=== PATIENT | male | born 1945 | race Caucasian/White ===

== ENCOUNTER 2019-11-12 08:45 | Outpatient (CLI) | payer OTHER, SELFPAY ==
--- NOTE | 2019-11-13 10:53 | ONC FU_ITS ---
Dr. Castano Patient Follow-Up Note Patient: Armando Zurita Unit #: [id number]: 1945 Dicatated By: Jus Castano M.D.Date of Visit:Nov 12, 2019 Onc Med Follow-up/Prog Note Chief Complaint: Chronic lymphocytic leukemia/transformed lymphoma and lung cancer. 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 He also has been treated for nonsmall cell cancer of the right lung. He had known chronic lymphocytic leukemia, initially diagnosed in 2001. He had mostly been followed through the [place]. He had early stage disease, and he had been monitored on observation. I had seen him initially on 01/09/2016 because of increasing lymphocytosis and peripheral lymphadenopathy. The most significant area of adenopathy was in the right side of the neck. A contrast-enhanced neck CT on 01/01/2016 showed extensive multilevel cervical lymphadenopathy and to a lesser extent mediastinal and hilar lymphadenopathy. The largest interventional lymph node appeared to be a right anterior cervical node at level 3 measuring about 5.7 cm in diameter. It was associated with displacement of the right parotid gland and near complete effacement of the right internal jugular vein. A left-sided level 3 cervical node measured 3.1 cm and a left-sided level 4 supraclavicular lymph node measured 3.6 cm. His subsequent evaluation included staging CT scans of the chest/abdomen/pelvis on 01/30/2016. These showed significant, generalized lymphadenopathy and mild splenomegaly. Also noted were subcentimeter pulmonary nodules of undetermined significance. He underwent incisional biopsy of the right neck mass on 01/31/2016. Pathology was consistent with diffuse large B-cell lymphoma, germinal center subtype with high-grade features. Bone marrow aspiration/biopsy on 02/09/2016 did show evidence of chronic lymphocytic leukemia, but no evidence of involvement with the diffuse large B-cell lymphoma. He initiated a course of treatment with R-CHOP chemotherapy on 02/14/2016. His baseline echocardiogram showed adequate LV function with estimated ejection fraction at 55%. His day 1 treatment was complicated by a hypersensitivity reaction to the rituximab, significant enough that he did require treatment with epinephrine. As such, the rituximab infusion was not completed, but he was able to return the following day and complete the CHOP portion of the treatment. The rituximab was re-introduced with the second cycle, and with premedication he tolerated it well. He completed his 6th cycle of treatment on 06/05/2016. Restaging CT scan of the chest, abdomen, and pelvis on 07/01/2016 showed moderate improvement in lymphadenopathy throughout the chest, abdomen and pelvis since the prior study. There were no new lymph nodes or progression of adenopathy noted. Chest CT performed on 09/03/2016 showed enlarging superior segment right lower lobe lung nodule suspicious for primary lung neoplasm. On 10/28/2016 he underwent right lower lobectomy. Pathology showed grade 2/4 infiltrating adenocarcinoma measuring 1.5 x 1.4 cm. The bronchial margin of resection was free by 4 cm. The pleural surface was free by 0.2 cm. There was no involvement in 4 hilar lymph nodes. His pathologic stage thus was IA (T1a, N0, M0). Surveillance CT scans of the chest, abdomen, and pelvis on 05/22/2017 showed a spiculated pleural-based nodule in the right upper lobe measuring 8 mm and an additional nodule measuring 6 mm in the medial right upper lobe. Both of these appear to be new from previous studies. Also noted were new tree-in-bud airspace abnormalities in the right upper lobe and right middle lobe and there was a possible 3 mm nodule in the left lower lobe. Findings were felt to be consistent either with infectious process or early metastatic disease. Also noted was a slight increase in the size of mediastinal and hilar lymph nodes compared to August 2016, with the largest node at the left hilum measuring 12 mm. He continued observation/expectant management. A repeat chest CT on 08/22/2017 showed moderate improvement in the aeration throughout both lungs compared to the study from May. A 7 mm right upper lobe subpleural nodule appeared stable. There was near complete resolution of the parenchymal nodule in the right upper lobe. There was a small persistent right pleural effusion. He continued on observation/expectant management. His surveillance CT scans of the chest, abdomen, and pelvis on 01/30/2018 showed increase in the right apical spiculated pulmonary nodule, measuring 14 x 8 mm compared to 7 mm on the prior study. There was interval development of necrotic right hilar lymphadenopathy measuring 2.4 x 1.7 cm. A 9 mm left infrahilar lymph node and a prevascular 12 mm lymph node appeared unchanged. There were new bilateral lower lung zone tree-in-bud nodular opacities, favoring infection or postinflammatory change. Retroperitoneal and inguinal lymph nodes measuring 1-2 cm appeared unchanged, as did additional inguinal, peritoneal, and mesenteric subcentimeter lymph nodes. He had further evaluation with PET/CT on 02/07/2018. It showed a 1.3 cm right lung apical nodule with SUV 4.5, new from the prior CT and suspicious for recurrence. A hypermetabolic superior right hilar lymph node also was consistent with malignancy, SUV 10.6. There were no other areas of significant FDG uptake. He was referred to Dr. Cristian Wong in [place]. He underwent bronchoscopy with EBUS on 03/13/2018. 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 FNA of a station 7 lymph node showed no malignancy. FNA of a station 4R lymph node was insufficient to exclude metastatic disease. He was referred to Dr. Glass and it was recommended that he undergo SBRT to the right upper lobe lesion followed by chemoradiation to the hilar lesion. He completed the SBRT on 04/07/2018 to a total dose of 4800 cGy. He began radiation to the hilar lesion, concurrently with weekly carboplatin/Taxol chemotherapy on 04/09/2018. He had no significant toxicity with his initial chemotherapy infusion, and he received his 2nd infusion of carbo/Taxol on 04/16/2018. His week 3 treatment was delayed 4 days due to a COPD exacerbation, but those symptoms did improve on treatment with Levaquin and prednisone. He was then able to continue his further chemotherapy on schedule. He received his 6th and final infusion of carboplatin/Taxol on 05/18/2018. He completed radiation on 05/27/2018 to a total dose of [address] on 06/30/2018 showed residual spiculated nodule in the right upper lobe measuring 11 mm, slightly smaller from the previous study. Right hilar necrotic lymphadenopathy also was noted to have improved, measuring 12 mm. Previously described pulmonary infiltrates in the right upper lobe were noted to have resolved. There were no other significant changes. Repeat chest CT on 10/05/2018 showed stable spiculated nodule in the right upper lobe measuring 10 x 6 mm. The central left upper lobe nodule measuring 7.5 mm appeared slightly more consolidated. Numerous subcentimeter retroperitoneal lymph nodes also appeared stable. Intermediate hilar lymph nodes also appeared stable. His chest CT on 01/07/2019 showed stable appearance of the right apical spiculated nodule measuring 11 x 7 mm in the left upper lobe noncalcified nodule measuring 7-8 mm. Incompletely visualized retroperitoneal subcentimeter lymph nodes also appeared stable. Overall, there was no evidence of disease progression in the chest. He continued on observation/expectant management. His other medical illnesses include hypertension, COPD, GERD, degenerative arthritis, and peripheral neuropathy. His only prior surgery was a cholecystectomy. He has a 60 year history of smoking, previously in excess of 2 packs of cigarettes daily. He continues to smoke 1 pack per day. INTERIM HISTORY: Repeat CT scans on 07/19/2019 showed spiculated right upper lobe mass with increased pleural thickening, measuring approximately 2.9 x 1.5 CM. There was progression of a noncalcified nodule in the left upper lobe measuring 12 mm. A new noncalcified spiculated nodule was noted in the right hilum measuring 9 mm. The abdomen/pelvis showed stable prominent periaortic and retroperitoneal lymph nodes, the largest measuring approximately 9 mm. Prominent lymph nodes along the mesenteric root appeared unchanged. Enlarged bilateral inguinal lymph nodes were noted to have shown interval progression since 10/05/2018, with the largest right inguinal lymph node measuring 2.1 x 1.9 cm. A restaging PET/CT on 07/24/2019 showed FDG avid right apical pulmonary nodule measuring 1.4 x 2.1 cm, SUV 5.4, consistent with disease progression. A right hilar lymph node showed decreased FDG avidity, SUV 5.4 compared to 10.6 on the previous study. A new left upper lobe nodule measuring 1.2 cm had SUV 3.2, consistent with new metastatic disease. A 9 mm right lower lobe nodule was also noted to be FDG positive and suspicious for metastatic disease. A 2.0 cm right femoral lymph node had elevated SUV of 4.9, suspicious for recurrent lymphoma. Other scattered mesenteric and pelvic nodes appeared unchanged. After review of the CT scans with the radiologist, it appeared that the pulmonary nodules were not accessible for biopsy. He ultimately was referred to Dr. Almendarez for biopsy of the right inguinal lymph node. The procedure was done on 10/12/2019 and pathology did confirm recurrent diffuse large B-cell lymphoma, germinal center subtype. He is seen for a follow-up visit to discuss the biopsy results. Since the biopsy procedure, he has developed persistent swelling in the right leg, which I assume is lymphedema. His clinical status is otherwise remained stable. Medications: AmLODIPine Besylate 1 (10 mg) Tablet Oral daily, Lisinopril 0.5 Tablet (of 40 mg) Oral daily, Omeprazole 1 (20 mg) Capsule Delayed Release Oral daily, Rosuvastatin Calcium 1 Tablet (of 5 mg) Tablet Oral daily Allergies: Seafood (crab legs) Vital Signs: Performed on Nov 12, 2019 09:00 Height - 71.00 in Weight - 199.6 lbs (HIGH) BSA - 2.11 sq.m BMI - 27.84 Temperature - 98.0 F (LOW) Pulse - 63 /min Respiration - 18 /min BP - 113/60 mm(hg) O2 Sat - 93 % (LOW) Pain - 5 Fatigue - 5 Lab/Imaging: Test performed on Oct 29, 2019 08:50 LDH (Total) 204 U/L Sodium 136 mmol/L Potassium 3.8 mmol/L Chloride 95 mmol/L CO2 30 mmol/L Anion Gap 14.8 BUN 16 mg/dL Creatinine 1.1 mg/dL Cr Clearance (Est) 76.2900 mL/min Glucose 104 mg/dl Calcium 9.1 mg/dL Protein, Total 6.7 g/dL Albumin 4.9 g/dL Globulin 1.8 gm/dL Bilirubin, Total 0.5 mg/dL ALT (SGPT) 9 U/L AST (SGOT) 14 U/L Alkaline Phosphatase 104 U/L WBC 9.1 10 3/uL RBC 4.68 10 6/uL HGB 13.9 g/dL HCT 43.2 % MCV 92.3 fl MCH 29.7 pg MCHC 32.2 g/dl RDW 12.4 % Platelet Count 233 10 3/cmm MPV 8.8 fl Neutrophils 5.2 10 3/uL Lymphocytes 2.1 10 3/uL Monocytes 0.7 10 3/uL Eosinophils 1.1 10 3/uL Basophils 0.1 10 3/uL Neutrophil % 56.8 % Lymphocyte % 22.6 % Monocyte % 7.5 % Eosinophil % 12.3 % Basophils % 0.5 % Impression: 1. Patient with chronic leukocytic leukemia, initially diagnosed in 2001. He initially had early stage disease and he was followed on observation. In January 2016 he presented with extensive and in some areas bulky lymphadenopathy, and he was confirmed by lymph node biopsy to have transformed diffuse large B cell lymphoma. By clinical evaluation, his disease was stage IIIA. His international prognostic index score was 2, intermediate risk. 2. He was treated with 6 cycles of R-CHOP chemotherapy from 02/14/2016 thru 06/05/2016. He experienced treatment-related fatigue and myelosuppression, including grade 2 anemia and grade 4 neutropenia. He also had some worsening of peripheral neuropathy, mainly in the left hand, where it was grade 3. Restaging CT scans on 07/01/2016 showed significant improvement in the lymphadenopathy, though not complete resolution. Three noncalcified 5 mm pulmonary nodules in the right lung were noted to be stable. 3. His follow-up chest CT in August 2016 showed enlargement of a right lower lobe pulmonary nodule. He underwent right lower lobectomy on 10/28/2016. Pathology confirmed grade 2/4 infiltrating adenocarcinoma, stage IA (T1a, N0, M0). His other medical illnesses include: 2. COPD. 3. Hypertension. 4. GERD. 5. Peripheral neuropathy. This appears to be idiopathic. 6. Nicotine dependence (cigarettes). During followup his initial surveillance CT scans had shown no evidence of recurrence of the lung cancer or lymphoma. His surveillance CT scans in January 2018 showed slight increase in size of a right apical pulmonary nodule measuring 14 x 8 mm and interval development of right hilar necrotic lymphadenopathy measuring 2.4 x 1.7 cm. On further evaluation with PET/CT, both lesions were FDG positive, suspicious for a new non-small cell lung cancer. He underwent bronchoscopy with EBUS on 03/13/2018. The right apical lesion was not accessible. 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 FNA of a station 7 lymph node showed no malignancy. As such, he had a new confirmed non-small cell carcinoma involving the upper lobe of the right lung. Based on the presence of a second tumor nodule within the right upper lobe, his disease was stage IIB (T3, N0, M0). He was given SBRT to the right upper lobe lesion, completed on 04/07/2018 to a total dose of 4800 cGy. He then began radiation to the right hilar lesion, currently with weekly carboplatin/Taxol chemotherapy on 04/09/2018. He completed the first 2 weekly chemotherapy infusions with no significant toxicity. His week 3 treatment was delayed 4 days due to symptoms of COPD exacerbation, but those did improve after treatment with Levaquin and prednisone. He was then able to continue the remainder of his chemotherapy on schedule. He completed his sixth and final infusion of carboplatin/Taxol on 05/18/2018. He completed radiation on 05/27/2018, total dose 1600 cGy. Overall, he tolerated his treatment well. He appeared to have significant response by follow-up chest CT. During follow-up he had initially remained stable clinically with no obvious progression of the lung cancer. However, his repeat CT scans July 2019 showed some progression of lymphadenopathy as well as increased pleural thickening associated with the residual right upper lobe mass. His restaging PET/CT on 07/24/2019 showed progression of the right apical pulmonary nodule as well as suspected bilateral metastatic pulmonary nodules and an FDG avid right femoral lymph node which appeared suspicious for recurrent lymphoma. The pulmonary nodules did not appear to be accessible for biopsy. Right inguinal lymph node biopsy on 10/12/2019 confirmed recurrent diffuse large B-cell lymphoma, germinal center subtype. Plan: He will now be starting second line treatment for diffuse large B-cell lymphoma with the R-gem ox chemotherapy regimen. This will be administered at 2-week intervals. I reviewed anticipated side effects including the potential for nausea/vomiting, fatigue, alopecia, and low blood counts, among others. I also discussed the expected neuropathy with oxaliplatin. He will return next week to begin his first cycle of treatment, but in the meantime he is also being scheduled for restaging PET/CT, as it is likely that he also has progression of the non-small cell lung cancer. [id number] time with patient was approximately 30 minutes, more than 50% spent in counseling/discussion. Signed By: Jus Castano M.D. <<Signature on File>>
== END 2019-11-12 08:46 | disposition home or self-care (01) ==
LOC: ONCMED 08:45
PROVIDERS: Family Provider Emergency Medicine Emergency Medical Services; PCP Emergency Medicine Emergency Medical Services; Visit Provider Internal Medicine Medical Oncology
DX: C83.35 Diffuse large B-cell lymphoma, lymph nodes of inguinal region and lower limb (principal); C34.11 Malignant neoplasm of upper lobe, right bronchus or lung; I10 Essential (primary) hypertension; J44.9 Chronic obstructive pulmonary disease, unspecified; K21.9 Gastro-esophageal reflux disease without esophagitis; M19.90 Unspecified osteoarthritis, unspecified site; G60.9 Hereditary and idiopathic neuropathy, unspecified; F17.210 Nicotine dependence, cigarettes, uncomplicated; I89.0 Lymphedema, not elsewhere classified; Z92.21 Personal history of antineoplastic chemotherapy; Z92.25 Personal history of immunosuppression therapy; Z92.3 Personal history of irradiation
CPT/HCPCS: 99214

== ENCOUNTER 2019-12-02 05:44 | Outpatient (RCR) | payer OTHER, SELFPAY ==
[2019-11-16 09:12] LABS: Basophils # 0.1 10^3/uL (0.0-0.1); Basophils % 0.7 %; Hematocrit 37.4 % (42.0-52.0); Lymphocytes # 2.1 10^3/uL (0.8-4.8); Lymphocytes % 24.4 %; Mean Corpuscular HGB Conc 32.1 g/dL (30.0-36.0); Mean Corpuscular Volume 87.2 fL (80-94); Mean Platelet Volume 9.1 fL (7.4-10.4); Monocytes # 0.7 10^3/uL (0.2-0.9); Neutrophils # 4.8 10^3/uL (1.8-7.7); Neutrophils % 55.7 %; Nucleated Red Blood Cells % 0 %; Platelet Count 234 10^3/cmm (130-400); Red Blood Count 4.29 10^6/uL (4.1-5.3); Red Cell Distribution Width 12.4 % (12.1-15.1); White Blood Count 8.6 10^3/uL (4.0-10.0)
[2019-11-16 09:23] LABS: Alanine Aminotransferase 6 U/L (0-41); Albumin Level 4.1 g/dL (3.5-5.2); Alkaline Phosphatase 94 IU/L (40-130); Aspartate Amino Transferase 12 U/L (0-40); Blood Urea Nitrogen 20 mg/dL (8-23); Calcium 9.6 mg/Dl (8.8-10.2); Carbon Dioxide 28 mmol/L (22-29); Chloride 96 mmol/L (98-107); Globulin 2.2 g/dL (1.3-4.6); Glucose 116 mg/dL (74-106); Lactate Dehydrogenase 225 U/L (135-225); Sodium 134 mmol/L (136-145); Total Bilirubin 0.6 mg/dL (0.15-1.2); Total Protein 6.3 g/dL (6.6-8.7)
[2019-11-16] MEDS: acetaminophen 325 mg Tablet 650 MG PO (09:27)
[2019-11-17] MEDS: dextrose 5% 250 ML 75 ML IV (13:55)
[2019-11-17] MEDS: sodium chloride 0.9% 250 ML 50 ML IV ×3 (13:56→14:56)
[2019-11-17] MEDS: pegfilgrastim 6 mg/0.6 mL Kit (onpro) SUBCUT (14:56)
[2019-11-23 10:06] LABS: Basophils # 0.1 10^3/uL (0.0-0.1); Basophils % 0.9 %; Eosinophils # 0.5 10^3/uL (0.0-0.8); Eosinophils % 3.4 %; Hematocrit 35.8 % (42.0-52.0); Hemoglobin 11.5 g/dL (11.7-16.6); Lymphocytes # 1.4 10^3/uL (0.8-4.8); Lymphocytes % 9.2 %; Mean Corpuscular HGB Conc 32.1 g/dL (30.0-36.0); Mean Corpuscular Hemoglobin 29.3 pg (28.0-34.0); Mean Corpuscular Volume 91.1 fL (80-94); Mean Platelet Volume 9.5 fL (7.4-10.4); Monocytes # 0.7 10^3/uL (0.2-0.9); Monocytes % 4.4 %; Neutrophils # 12.4 10^3/uL (1.8-7.7); Neutrophils % 81.4 %; Nucleated Red Blood Cells % 0 %; Platelet Count 135 10^3/cmm (130-400); Red Blood Count 3.93 10^6/uL (4.1-5.3); Red Cell Distribution Width 12.5 % (12.1-15.1); White Blood Count 15.3 10^3/uL (4.0-10.0)
[2019-11-23 10:27] LABS: Slide Review Slide Review Perform
[2019-11-23 10:28] LABS: Absolute Eosinophils 0.1 10^3/cmm (0.0-0.7); Absolute Segmented Neutrophil 8.4 10/cmm (1.6-7.1); Band Neutrophils Absolute 3.8 10^3/cmm (0.0-1.2); Basophils Absolute 0.2 10^3/cmm (0.0-0.2); Eosinophils 1 %; Lymphocytes 11 %; Monocytes Absolute 1.1 10^3/cmm (0.1-0.6); Segmented Neutrophils 55 %; Total Cells Counted 100 (0-100)
[2019-11-23 10:29] LABS: Platelet Estimate Decreased (Normal)
[2019-11-30 12:53] LABS: Basophils # 0.1 10^3/uL (0.0-0.1); Basophils % 0.8 %; Eosinophils # 0.5 10^3/uL (0.0-0.8); Eosinophils % 3.9 %; Hematocrit 41.2 % (42.0-52.0); Hemoglobin 12.9 g/dL (11.7-16.6); Lymphocytes # 1.5 10^3/uL (0.8-4.8); Lymphocytes % 12.9 %; Mean Corpuscular HGB Conc 31.3 g/dL (30.0-36.0); Mean Corpuscular Hemoglobin 29.1 pg (28.0-34.0); Mean Platelet Volume 9.9 fL (7.4-10.4); Monocytes # 1.2 10^3/uL (0.2-0.9); Monocytes % 9.7 %; Neutrophils % 67.1 %; Nucleated Red Blood Cells % 0 %; Platelet Count 243 10^3/cmm (130-400); Red Blood Count 4.43 10^6/uL (4.1-5.3); Red Cell Distribution Width 13.5 % (12.1-15.1); White Blood Count 11.9 10^3/uL (4.0-10.0)
[2019-11-30 13:08] LABS: Alanine Aminotransferase 35 U/L (0-41); Albumin Level 3.7 g/dL (3.5-5.2); Alkaline Phosphatase 129 IU/L (40-130); Anion Gap 16.4 (5-19); Aspartate Amino Transferase 26 U/L (0-40); Blood Urea Nitrogen 13 mg/dL (8-23); Calcium 9.8 mg/Dl (8.8-10.2); Carbon Dioxide 28 mmol/L (22-29); Chloride 98 mmol/L (98-107); Globulin 3.1 g/dL (1.3-4.6); Glucose 116 mg/dL (74-106); Lactate Dehydrogenase 229 U/L (135-225); Potassium 4.4 mmol/L (3.5-5.1); Sodium 138 mmol/L (136-145); Total Bilirubin 0.2 mg/dL (0.15-1.2); Total Protein 6.8 g/dL (6.6-8.7)
[2019-11-30 13:38] LABS: Slide Review Slide Review Perform
[2019-12-01] MEDS: acetaminophen 325 mg Tablet 650 MG PO (09:05)
[2019-12-01] MEDS: sodium chloride 0.9% 500 ML 75 ML IV (09:42)
--- NOTE | 2019-12-01 20:01 | ONC FU_ITS ---
Dr. Castano Patient Follow-Up Note Patient: Armando Zurita Unit #: [id number]: 1945 Dicatated By: Jus Castano M.D.Date of Visit:Dec 01, 2019 Onc Med Follow-up/Prog Note Chief Complaint: Chronic lymphocytic leukemia/transformed lymphoma and lung cancer. 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 He also has been treated for nonsmall cell cancer of the right lung. He had known chronic lymphocytic leukemia, initially diagnosed in 2001. He had mostly been followed through the [facility]. He had early stage disease, and he had been monitored on observation. I had seen him initially on 01/09/2016 because of increasing lymphocytosis and peripheral lymphadenopathy. The most significant area of adenopathy was in the right side of the neck. A contrast-enhanced neck CT on 01/01/2016 showed extensive multilevel cervical lymphadenopathy and to a lesser extent mediastinal and hilar lymphadenopathy. The largest interventional lymph node appeared to be a right anterior cervical node at level 3 measuring about 5.7 cm in diameter. It was associated with displacement of the right parotid gland and near complete effacement of the right internal jugular vein. A left-sided level 3 cervical node measured 3.1 cm and a left-sided level 4 supraclavicular lymph node measured 3.6 cm. His subsequent evaluation included staging CT scans of the chest/abdomen/pelvis on 01/30/2016. These showed significant, generalized lymphadenopathy and mild splenomegaly. Also noted were subcentimeter pulmonary nodules of undetermined significance. He underwent incisional biopsy of the right neck mass on 01/31/2016. Pathology was consistent with diffuse large B-cell lymphoma, germinal center subtype with high-grade features. Bone marrow aspiration/biopsy on 02/09/2016 did show evidence of chronic lymphocytic leukemia, but no evidence of involvement with the diffuse large B-cell lymphoma. He initiated a course of treatment with R-CHOP chemotherapy on 02/14/2016. His baseline echocardiogram showed adequate LV function with estimated ejection fraction at 55%. His day 1 treatment was complicated by a hypersensitivity reaction to the rituximab, significant enough that he did require treatment with epinephrine. As such, the rituximab infusion was not completed, but he was able to return the following day and complete the CHOP portion of the treatment. The rituximab was re-introduced with the second cycle, and with premedication he tolerated it well. He completed his 6th cycle of treatment on 06/05/2016. Restaging CT scan of the chest, abdomen, and pelvis on 07/01/2016 showed moderate improvement in lymphadenopathy throughout the chest, abdomen and pelvis since the prior study. There were no new lymph nodes or progression of adenopathy noted. Chest CT performed on 09/03/2016 showed enlarging superior segment right lower lobe lung nodule suspicious for primary lung neoplasm. On 10/28/2016 he underwent right lower lobectomy. Pathology showed grade 2/4 infiltrating adenocarcinoma measuring 1.5 x 1.4 cm. The bronchial margin of resection was free by 4 cm. The pleural surface was free by 0.2 cm. There was no involvement in 4 hilar lymph nodes. His pathologic stage thus was IA (T1a, N0, M0). Surveillance CT scans of the chest, abdomen, and pelvis on 05/22/2017 showed a spiculated pleural-based nodule in the right upper lobe measuring 8 mm and an additional nodule measuring 6 mm in the medial right upper lobe. Both of these appear to be new from previous studies. Also noted were new tree-in-bud airspace abnormalities in the right upper lobe and right middle lobe and there was a possible 3 mm nodule in the left lower lobe. Findings were felt to be consistent either with infectious process or early metastatic disease. Also noted was a slight increase in the size of mediastinal and hilar lymph nodes compared to August 2016, with the largest node at the left hilum measuring 12 mm. He continued observation/expectant management. A repeat chest CT on 08/22/2017 showed moderate improvement in the aeration throughout both lungs compared to the study from May. A 7 mm right upper lobe subpleural nodule appeared stable. There was near complete resolution of the parenchymal nodule in the right upper lobe. There was a small persistent right pleural effusion. He continued on observation/expectant management. His surveillance CT scans of the chest, abdomen, and pelvis on 01/30/2018 showed increase in the right apical spiculated pulmonary nodule, measuring 14 x 8 mm compared to 7 mm on the prior study. There was interval development of necrotic right hilar lymphadenopathy measuring 2.4 x 1.7 cm. A 9 mm left infrahilar lymph node and a prevascular 12 mm lymph node appeared unchanged. There were new bilateral lower lung zone tree-in-bud nodular opacities, favoring infection or postinflammatory change. Retroperitoneal and inguinal lymph nodes measuring 1-2 cm appeared unchanged, as did additional inguinal, peritoneal, and mesenteric subcentimeter lymph nodes. He had further evaluation with PET/CT on 02/07/2018. It showed a 1.3 cm right lung apical nodule with SUV 4.5, new from the prior CT and suspicious for recurrence. A hypermetabolic superior right hilar lymph node also was consistent with malignancy, SUV 10.6. There were no other areas of significant FDG uptake. He was referred to Dr. Cristian Wong in [place]. He underwent bronchoscopy with EBUS on 03/13/2018. 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 FNA of a station 7 lymph node showed no malignancy. FNA of a station 4R lymph node was insufficient to exclude metastatic disease. He was referred to Dr. Glass and it was recommended that he undergo SBRT to the right upper lobe lesion followed by chemoradiation to the hilar lesion. He completed the SBRT on 04/07/2018 to a total dose of 4800 cGy. He began radiation to the hilar lesion, concurrently with weekly carboplatin/Taxol chemotherapy on 04/09/2018. He had no significant toxicity with his initial chemotherapy infusion, and he received his 2nd infusion of carbo/Taxol on 04/16/2018. His week 3 treatment was delayed 4 days due to a COPD exacerbation, but those symptoms did improve on treatment with Levaquin and prednisone. He was then able to continue his further chemotherapy on schedule. He received his 6th and final infusion of carboplatin/Taxol on 05/18/2018. He completed radiation on 05/27/2018 to a total dose of [address] on 06/30/2018 showed residual spiculated nodule in the right upper lobe measuring 11 mm, slightly smaller from the previous study. Right hilar necrotic lymphadenopathy also was noted to have improved, measuring 12 mm. Previously described pulmonary infiltrates in the right upper lobe were noted to have resolved. There were no other significant changes. Repeat chest CT on 10/05/2018 showed stable spiculated nodule in the right upper lobe measuring 10 x 6 mm. The central left upper lobe nodule measuring 7.5 mm appeared slightly more consolidated. Numerous subcentimeter retroperitoneal lymph nodes also appeared stable. Intermediate hilar lymph nodes also appeared stable. His chest CT on 01/07/2019 showed stable appearance of the right apical spiculated nodule measuring 11 x 7 mm in the left upper lobe noncalcified nodule measuring 7-8 mm. Incompletely visualized retroperitoneal subcentimeter lymph nodes also appeared stable. Overall, there was no evidence of disease progression in the chest. He continued on observation/expectant management. His other medical illnesses include hypertension, COPD, GERD, degenerative arthritis, and peripheral neuropathy. His only prior surgery was a cholecystectomy. He has a 60 year history of smoking, previously in excess of 2 packs of cigarettes daily. He continues to smoke 1 pack per day. INTERIM HISTORY: Repeat CT scans on 07/19/2019 showed spiculated right upper lobe mass with increased pleural thickening, measuring approximately 2.9 x 1.5 CM. There was progression of a noncalcified nodule in the left upper lobe measuring 12 mm. A new noncalcified spiculated nodule was noted in the right hilum measuring 9 mm. The abdomen/pelvis showed stable prominent periaortic and retroperitoneal lymph nodes, the largest measuring approximately 9 mm. Prominent lymph nodes along the mesenteric root appeared unchanged. Enlarged bilateral inguinal lymph nodes were noted to have shown interval progression since 10/05/2018, with the largest right inguinal lymph node measuring 2.1 x 1.9 cm. A restaging PET/CT on 07/24/2019 showed FDG avid right apical pulmonary nodule measuring 1.4 x 2.1 cm, SUV 5.4, consistent with disease progression. A right hilar lymph node showed decreased FDG avidity, SUV 5.4 compared to 10.6 on the previous study. A new left upper lobe nodule measuring 1.2 cm had SUV 3.2, consistent with new metastatic disease. A 9 mm right lower lobe nodule was also noted to be FDG positive and suspicious for metastatic disease. A 2.0 cm right femoral lymph node had elevated SUV of 4.9, suspicious for recurrent lymphoma. Other scattered mesenteric and pelvic nodes appeared unchanged. After review of the CT scans with the radiologist, it appeared that the pulmonary nodules were not accessible for biopsy. He ultimately was referred to Dr. Almendarez for biopsy of the right inguinal lymph node. The procedure was done on 10/12/2019 and pathology did confirm recurrent diffuse large B-cell lymphoma, germinal center subtype. A repeat PET/CT on 11/13/2019 showed unchange in right apical pulmonary nodule with SUV 7.9 compared to 5.4 on the prior study. Mild uptake in a right hilar lymph node was unchanged. A left upper pulmonary nodule had increased in size from 1.2 cm to 1.8 cm with SUV increased from 2.7 to 3.2, and a right lower lobe nodule measured 1.3 cm with SUV 6.9, consistent with progression. There was residual mass in the right inguinal area measuring 5.1 x 5.9 cm with SUV 12.8, strongly consistent with lymphoma. Multiple other FDG positive nodes were present in the right femoral and external iliac territories, including a right external iliac node measuring 6.4 x 4.2 cm with SUV 10.1. There were additional FDG positive nodes in the right common iliac and bilateral periaortic territories, consistent with lymphoma. Prominent mesenteric nodes did not appear significantly changed. Due to his underlying COPD and multiple malignancies, he did not appear to be eligible for autologous stem cell transplant. As such, he began a course of salvage chemotherapy with R-gem ox, cycle 1 day 11/16/2019. He is seen for a scheduled visit. He had nausea/vomiting with his day 2 chemotherapy. It started on his way home, but it had resolved by the following day. He has since then had no further nausea. His appetite is fair. He has had some fatigue, but he is able to do light work. His ECOG score is 1. He has no fever or night sweats. He still has some discomfort and swelling in the right leg, but there has been significant improvement in his right groin mass. He has not had mouth sores. He has shortness of breath, and he is using oxygen at night. He has a morning cough. He does not complain of chest pain. Bowel function has been okay. He has had hesitancy with urination, but intermittently. He has no other joint or bone pain. He has no numbness/paresthesia or other focal neurologic symptoms. Medications: AmLODIPine Besylate 1 (10 mg) Tablet Oral daily, Lisinopril 0.5 Tablet (of 40 mg) Oral daily, Omeprazole 1 (20 mg) Capsule Delayed Release Oral daily, Rosuvastatin Calcium 1 Tablet (of 5 mg) Tablet Oral daily Allergies: Seafood (crab legs) Review of Systems: Constitutional - His energy is pretty good. He does light work at home. His appetite is fair. His weight is up a few pounds. No fever, chills, hot flashes, or night sweats. ECOG score is 1, ENMT - No sinus congestion/drainage. No mouth sores. No sore throat or difficulty swallowing, Hematologic/Lymphatic - He bruises easily, Respiratory - He has shortness of breath with activity. He wears oxygen at night. He has a cough in the morning. No pleuritic pain or hemoptysis, Cardiovascular - No angina pain. No palpitations, Gastrointestinal - He had nausea and vomiting following day 2 chemotherapy, but none since then. No heartburn or acid reflux. No diarrhea or constipation. No blood in the stool or black stools, Genitourinary (M) - No dysuria or hematuria. No urinary frequency. No urgency or incontinence. He has had some hesitancy intermittently, Musculoskeletal - He still has some swelling and some discomfort in his right leg, but it is improving, Integumentary - No skin complications, Neurologic - No headache or dizziness. No numbness/paresthesias or other focal neurologic symptoms, Psychiatric - No anxiety or depression. No insomnia. Vital Signs: Performed on Dec 01, 2019 08:20 Height - 71.00 in Weight - 202.4 lbs (HIGH) BSA - 2.12 sq.m BMI - 28.23 Temperature - 97.8 F (LOW) Pulse - 83 /min Respiration - 22 /min BP - 121/66 mm(hg) O2 Sat - 94 % (LOW) Pain - 0 Physical Examination: Constitutional - He looks pretty good generally, Eyes - Sclerae nonicteric. Conjunctivae clear, ENMT - No lesions noted in the oral cavity, Hematologic/Lymphatic - No cervical, clavicular, or axillary adenopathy noted, Respiratory - Lungs sound clear with diminished air movement bilaterally, Cardiovascular - Heart rhythm is regular. There is no murmur, gallop, or rub noted, Abdomen - Soft. Liver and spleen are not enlarged. There is no abdominal mass or ascites noted. There is only minimal residual nodularity at the biopsy site in the right groin, Extremities - There is some residual swelling in the right leg, but it does look better, Neurologic - No focal neurologic deficits noted. Lab/Imaging: CBC shows hemoglobin 12.9 g, white blood cell count 11,900, and platelet count 243,000. Comprehensive metabolic profile is unremarkable. LDH is mildly elevated at 229/225 U/L. Impression: 1. Patient with chronic leukocytic leukemia, initially diagnosed in 2001. He initially had early stage disease and he was followed on observation. In January 2016 he presented with extensive and in some areas bulky lymphadenopathy, and he was confirmed by lymph node biopsy to have transformed diffuse large B cell lymphoma. By clinical evaluation, his disease was stage IIIA. His international prognostic index score was 2, intermediate risk. 2. He was treated with 6 cycles of R-CHOP chemotherapy from 02/14/2016 thru 06/05/2016. He experienced treatment-related fatigue and myelosuppression, including grade 2 anemia and grade 4 neutropenia. He also had some worsening of peripheral neuropathy, mainly in the left hand, where it was grade 3. Restaging CT scans on 07/01/2016 showed significant improvement in the lymphadenopathy, though not complete resolution. Three noncalcified 5 mm pulmonary nodules in the right lung were noted to be stable. 3. His follow-up chest CT in August 2016 showed enlargement of a right lower lobe pulmonary nodule. He underwent right lower lobectomy on 10/28/2016. Pathology confirmed grade 2/4 infiltrating adenocarcinoma, stage IA (T1a, N0, M0). His other medical illnesses include: 2. COPD. 3. Hypertension. 4. GERD. 5. Peripheral neuropathy. This appears to be idiopathic. 6. Nicotine dependence (cigarettes). During followup his initial surveillance CT scans had shown no evidence of recurrence of the lung cancer or lymphoma. His surveillance CT scans in January 2018 showed slight increase in size of a right apical pulmonary nodule measuring 14 x 8 mm and interval development of right hilar necrotic lymphadenopathy measuring 2.4 x 1.7 cm. On further evaluation with PET/CT, both lesions were FDG positive, suspicious for a new non-small cell lung cancer. He underwent bronchoscopy with EBUS on 03/13/2018. The right apical lesion was not accessible. 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 FNA of a station 7 lymph node showed no malignancy. As such, he had a new confirmed non-small cell carcinoma involving the upper lobe of the right lung. Based on the presence of a second tumor nodule within the right upper lobe, his disease was stage IIB (T3, N0, M0). He was given SBRT to the right upper lobe lesion, completed on 04/07/2018 to a total dose of 4800 cGy. He then began radiation to the right hilar lesion, currently with weekly carboplatin/Taxol chemotherapy on 04/09/2018. He completed the first 2 weekly chemotherapy infusions with no significant toxicity. His week 3 treatment was delayed 4 days due to symptoms of COPD exacerbation, but those did improve after treatment with Levaquin and prednisone. He was then able to continue the remainder of his chemotherapy on schedule. He completed his sixth and final infusion of carboplatin/Taxol on 05/18/2018. He completed radiation on 05/27/2018, total dose 1600 cGy. Overall, he tolerated his treatment well. He appeared to have significant response by follow-up chest CT. During follow-up he had initially remained stable clinically with no obvious progression of the lung cancer. However, his repeat CT scans July 2019 showed some progression of lymphadenopathy as well as increased pleural thickening associated with the residual right upper lobe mass. His restaging PET/CT on 07/24/2019 showed progression of the right apical pulmonary nodule as well as suspected bilateral metastatic pulmonary nodules and an FDG avid right femoral lymph node which appeared suspicious for recurrent lymphoma. The pulmonary nodules did not appear to be accessible for biopsy. Right inguinal lymph node biopsy on 10/12/2019 confirmed recurrent diffuse large B-cell lymphoma, germinal center subtype. Restaging PET/CT on 11/13/2019 showed significant progression of lymphoma in the right inguinal/pelvic area. There was also progression of the right apical pulmonary nodule and an additional left upper lobe and right lower lobe pulmonary nodules. The pulmonary nodules had been deemed inaccessible for biopsy. On 11/16/2019 he began cycle 1 of salvage chemotherapy with R-gem ox. He had nausea/vomiting following his day to chemotherapy, but it had resolved by the next day. He has otherwise tolerated the chemotherapy very well. By clinical evaluation, he does appear to be showing significant response. Plan: He will proceed with cycle 2 of R-gem ox. The dosages will remain the same. He will be given additional antiemetic therapy for his day 2 treatment. He returns in 2 weeks. Signed By: Jus Castano M.D. <<Signature on File>>
[2019-12-02] MEDS: sodium chloride 0.9% 250 ML 75 ML IV (09:10)
[2019-12-02] MEDS: LORazepam 2 mg/mL INJ 1 mL 1 MG IV (10:13)
[2019-12-02] MEDS: dextrose 5% 250 ML 75 ML (10:45)
[2019-12-02] MEDS: pegfilgrastim 6 mg/0.6 mL Kit (onpro) SUBCUT (14:20)
== END 2019-12-10 23:59 | disposition home or self-care (01) ==
LOC: ONCMED 05:44
PROVIDERS: Family Provider Emergency Medicine Emergency Medical Services; PCP Emergency Medicine Emergency Medical Services; Visit Provider Internal Medicine Medical Oncology
DX: Z51.12 Encounter for antineoplastic immunotherapy (principal); Z51.11 Encounter for antineoplastic chemotherapy; C83.38 Diffuse large B-cell lymphoma, lymph nodes of multiple sites; C34.31 Malignant neoplasm of lower lobe, right bronchus or lung; D70.1 Agranulocytosis secondary to cancer chemotherapy; T45.1X5A Adverse effect of antineoplastic and immunosuppressive drugs, initial encounter; I10 Essential (primary) hypertension; J44.9 Chronic obstructive pulmonary disease, unspecified; K21.9 Gastro-esophageal reflux disease without esophagitis; M19.90 Unspecified osteoarthritis, unspecified site; G62.9 Polyneuropathy, unspecified; F17.210 Nicotine dependence, cigarettes, uncomplicated; Z99.81 Dependence on supplemental oxygen; Z92.3 Personal history of irradiation; Z90.2 Acquired absence of lung [part of]
CPT/HCPCS: 36415; 36591; 80053; 83615; 85007; 85025; 96367; 96372; 96375; 96413; 96415; 96417; 99214; J1100; J1200; J1453; J2060; J2469; J2505; J2930; J7040; J7050; J9201; J9263; J9312

== ENCOUNTER 2019-12-13 15:49 | Outpatient (CLI) | payer OTHER, SELFPAY ==
[2019-12-13 14:54] LABS: Basophils # 0.1 10^3/uL (0.0-0.1); Basophils % 0.6 %; Eosinophils # 0.1 10^3/uL (0.0-0.8); Eosinophils % 0.5 %; Hematocrit 37.7 % (42.0-52.0); Hemoglobin 11.9 g/dL (11.7-16.6); Lymphocytes % 9.6 %; Mean Corpuscular HGB Conc 31.6 g/dL (30.0-36.0); Mean Corpuscular Hemoglobin 29.1 pg (28.0-34.0); Mean Corpuscular Volume 92.2 fL (80-94); Monocytes # 1.1 10^3/uL (0.2-0.9); Monocytes % 10.9 %; Neutrophils % 75.8 %; Nucleated Red Blood Cells % 0 %; Platelet Count 141 10^3/cmm (130-400); Red Blood Count 4.09 10^6/uL (4.1-5.3); Red Cell Distribution Width 14.5 % (12.1-15.1); White Blood Count 10.5 10^3/uL (4.0-10.0)
[2019-12-13 15:10] LABS: Alanine Aminotransferase 25 U/L (0-41); Albumin Level 3.7 g/dL (3.5-5.2); Alkaline Phosphatase 156 IU/L (40-130); Anion Gap 13.9 (5-19); Aspartate Amino Transferase 19 U/L (0-40); Blood Urea Nitrogen 11 mg/dL (8-23); Calcium 9.5 mg/dL (8.5-10.5); Carbon Dioxide 30 mmol/L (22-29); Chloride 94 mmol/L (98-107); Globulin 3.2 g/dL (1.3-4.6); Glucose 99 mg/dL (74-106); Lactate Dehydrogenase 202 U/L (135-225); Potassium 3.9 mmol/L (3.5-5.1); Sodium 134 mmol/L (136-145); Total Bilirubin 0.5 mg/dL (0.15-1.2); Total Protein 6.9 g/dL (6.6-8.7)
== END 2019-12-13 15:50 | disposition home or self-care (01) ==
LOC: ONCMED 12-14 15:01
PROVIDERS: Family Provider Emergency Medicine Emergency Medical Services; PCP Emergency Medicine Emergency Medical Services; Visit Provider Internal Medicine Medical Oncology
DX: C85.90 Non-Hodgkin lymphoma, unspecified, unspecified site (principal)
CPT/HCPCS: 80053; 83615; 85025

== ENCOUNTER 2019-12-29 05:47 | Outpatient (RCR) | payer OTHER, SELFPAY ==
[2019-12-14] MEDS: sodium chloride 0.9% 500 ML 75 ML IV (09:55)
--- NOTE | 2019-12-14 15:09 | ONC FU_ITS ---
[facility] Patient Note Patient: Armando Zurita Unit #: [id number]: 1945 Dictated By: Nohelia PringleDate of Visit: Dec 14, 2019 Onc MED Follow-Up/Prog Note Chief Complaint: Chronic lymphocytic leukemia/transformed lymphoma and lung cancer. 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 He also has been treated for nonsmall cell cancer of the right lung. He had known chronic lymphocytic leukemia, initially diagnosed in 2001. He had mostly been followed through the [place]. He had early stage disease, and he had been monitored on observation. Dr Castano had seen him initially on 01/09/2016 because of increasing lymphocytosis and peripheral lymphadenopathy. The most significant area of adenopathy was in the right side of the neck. A contrast-enhanced neck CT on 01/01/2016 showed extensive multilevel cervical lymphadenopathy and to a lesser extent mediastinal and hilar lymphadenopathy. The largest interventional lymph node appeared to be a right anterior cervical node at level 3 measuring about 5.7 cm in diameter. It was associated with displacement of the right parotid gland and near complete effacement of the right internal jugular vein. A left-sided level 3 cervical node measured 3.1 cm and a left-sided level 4 supraclavicular lymph node measured 3.6 cm. His subsequent evaluation included staging CT scans of the chest/abdomen/pelvis on 01/30/2016. These showed significant, generalized lymphadenopathy and mild splenomegaly. Also noted were subcentimeter pulmonary nodules of undetermined significance. He underwent incisional biopsy of the right neck mass on 01/31/2016. Pathology was consistent with diffuse large B-cell lymphoma, germinal center subtype with high-grade features. Bone marrow aspiration/biopsy on 02/09/2016 did show evidence of chronic lymphocytic leukemia, but no evidence of involvement with the diffuse large B-cell lymphoma. He initiated a course of treatment with R-CHOP chemotherapy on 02/14/2016. His baseline echocardiogram showed adequate LV function with estimated ejection fraction at 55%. His day 1 treatment was complicated by a hypersensitivity reaction to the rituximab, significant enough that he did require treatment with epinephrine. As such, the rituximab infusion was not completed, but he was able to return the following day and complete the CHOP portion of the treatment. The rituximab was re-introduced with the second cycle, and with premedication he tolerated it well. He completed his 6th cycle of treatment on 06/05/2016. Restaging CT scan of the chest, abdomen, and pelvis on 07/01/2016 showed moderate improvement in lymphadenopathy throughout the chest, abdomen and pelvis since the prior study. There were no new lymph nodes or progression of adenopathy noted. Chest CT performed on 09/03/2016 showed enlarging superior segment right lower lobe lung nodule suspicious for primary lung neoplasm. On 10/28/2016 he underwent right lower lobectomy. Pathology showed grade 2/4 infiltrating adenocarcinoma measuring 1.5 x 1.4 cm. The bronchial margin of resection was free by 4 cm. The pleural surface was free by 0.2 cm. There was no involvement in 4 hilar lymph nodes. His pathologic stage thus was IA (T1a, N0, M0). Surveillance CT scans of the chest, abdomen, and pelvis on 05/22/2017 showed a spiculated pleural-based nodule in the right upper lobe measuring 8 mm and an additional nodule measuring 6 mm in the medial right upper lobe. Both of these appear to be new from previous studies. Also noted were new tree-in-bud airspace abnormalities in the right upper lobe and right middle lobe and there was a possible 3 mm nodule in the left lower lobe. Findings were felt to be consistent either with infectious process or early metastatic disease. Also noted was a slight increase in the size of mediastinal and hilar lymph nodes compared to August 2016, with the largest node at the left hilum measuring 12 mm. He continued observation/expectant management. A repeat chest CT on 08/22/2017 showed moderate improvement in the aeration throughout both lungs compared to the study from May. A 7 mm right upper lobe subpleural nodule appeared stable. There was near complete resolution of the parenchymal nodule in the right upper lobe. There was a small persistent right pleural effusion. He continued on observation/expectant management. His surveillance CT scans of the chest, abdomen, and pelvis on 01/30/2018 showed increase in the right apical spiculated pulmonary nodule, measuring 14 x 8 mm compared to 7 mm on the prior study. There was interval development of necrotic right hilar lymphadenopathy measuring 2.4 x 1.7 cm. A 9 mm left infrahilar lymph node and a prevascular 12 mm lymph node appeared unchanged. There were new bilateral lower lung zone tree-in-bud nodular opacities, favoring infection or postinflammatory change. Retroperitoneal and inguinal lymph nodes measuring 1-2 cm appeared unchanged, as did additional inguinal, peritoneal, and mesenteric subcentimeter lymph nodes. He had further evaluation with PET/CT on 02/07/2018. It showed a 1.3 cm right lung apical nodule with SUV 4.5, new from the prior CT and suspicious for recurrence. A hypermetabolic superior right hilar lymph node also was consistent with malignancy, SUV 10.6. There were no other areas of significant FDG uptake. He was referred to Dr. Cristian Wong in [place]. He underwent bronchoscopy with EBUS on 03/13/2018. 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 FNA of a station 7 lymph node showed no malignancy. FNA of a station 4R lymph node was insufficient to exclude metastatic disease. He was referred to Dr. Glass and it was recommended that he undergo SBRT to the right upper lobe lesion followed by chemoradiation to the hilar lesion. He completed the SBRT on 04/07/2018 to a total dose of 4800 cGy. He began radiation to the hilar lesion, concurrently with weekly carboplatin/Taxol chemotherapy on 04/09/2018. He had no significant toxicity with his initial chemotherapy infusion, and he received his 2nd infusion of carbo/Taxol on 04/16/2018. His week 3 treatment was delayed 4 days due to a COPD exacerbation, but those symptoms did improve on treatment with Levaquin and prednisone. He was then able to continue his further chemotherapy on schedule. He received his 6th and final infusion of carboplatin/Taxol on 05/18/2018. He completed radiation on 05/27/2018 to a total dose of [address] on 06/30/2018 showed residual spiculated nodule in the right upper lobe measuring 11 mm, slightly smaller from the previous study. Right hilar necrotic lymphadenopathy also was noted to have improved, measuring 12 mm. Previously described pulmonary infiltrates in the right upper lobe were noted to have resolved. There were no other significant changes. Repeat chest CT on 10/05/2018 showed stable spiculated nodule in the right upper lobe measuring 10 x 6 mm. The central left upper lobe nodule measuring 7.5 mm appeared slightly more consolidated. Numerous subcentimeter retroperitoneal lymph nodes also appeared stable. Intermediate hilar lymph nodes also appeared stable. His chest CT on 01/07/2019 showed stable appearance of the right apical spiculated nodule measuring 11 x 7 mm in the left upper lobe noncalcified nodule measuring 7-8 mm. Incompletely visualized retroperitoneal subcentimeter lymph nodes also appeared stable. Overall, there was no evidence of disease progression in the chest. He continued on observation/expectant management. His other medical illnesses include hypertension, COPD, GERD, degenerative arthritis, and peripheral neuropathy. His only prior surgery was a cholecystectomy. He has a 60 year history of smoking, previously in excess of 2 packs of cigarettes daily. He continues to smoke 1 pack per day. INTERIM HISTORY: Repeat CT scans on 07/19/2019 showed spiculated right upper lobe mass with increased pleural thickening, measuring approximately 2.9 x 1.5 CM. There was progression of a noncalcified nodule in the left upper lobe measuring 12 mm. A new noncalcified spiculated nodule was noted in the right hilum measuring 9 mm. The abdomen/pelvis showed stable prominent periaortic and retroperitoneal lymph nodes, the largest measuring approximately 9 mm. Prominent lymph nodes along the mesenteric root appeared unchanged. Enlarged bilateral inguinal lymph nodes were noted to have shown interval progression since 10/05/2018, with the largest right inguinal lymph node measuring 2.1 x 1.9 cm. A restaging PET/CT on 07/24/2019 showed FDG avid right apical pulmonary nodule measuring 1.4 x 2.1 cm, SUV 5.4, consistent with disease progression. A right hilar lymph node showed decreased FDG avidity, SUV 5.4 compared to 10.6 on the previous study. A new left upper lobe nodule measuring 1.2 cm had SUV 3.2, consistent with new metastatic disease. A 9 mm right lower lobe nodule was also noted to be FDG positive and suspicious for metastatic disease. A 2.0 cm right femoral lymph node had elevated SUV of 4.9, suspicious for recurrent lymphoma. Other scattered mesenteric and pelvic nodes appeared unchanged. After review of the CT scans with the radiologist, it appeared that the pulmonary nodules were not accessible for biopsy. He ultimately was referred to Dr. Almendarez for biopsy of the right inguinal lymph node. The procedure was done on 10/12/2019 and pathology did confirm recurrent diffuse large B-cell lymphoma, germinal center subtype. A repeat PET/CT on 11/13/2019 showed unchange in right apical pulmonary nodule with SUV 7.9 compared to 5.4 on the prior study. Mild uptake in a right hilar lymph node was unchanged. A left upper pulmonary nodule had increased in size from 1.2 cm to 1.8 cm with SUV increased from 2.7 to 3.2, and a right lower lobe nodule measured 1.3 cm with SUV 6.9, consistent with progression. There was residual mass in the right inguinal area measuring 5.1 x 5.9 cm with SUV 12.8, strongly consistent with lymphoma. Multiple other FDG positive nodes were present in the right femoral and external iliac territories, including a right external iliac node measuring 6.4 x 4.2 cm with SUV 10.1. There were additional FDG positive nodes in the right common iliac and bilateral periaortic territories, consistent with lymphoma. Prominent mesenteric nodes did not appear significantly changed. Due to his underlying COPD and multiple malignancies, he did not appear to be eligible for autologous stem cell transplant. As such, he began a course of salvage chemotherapy with R-gem ox, cycle 1 day 11/16/2019. Mr. Zurita is here today for follow-up. He is due for cycle 3 R???gem/ox. He is tolerated it well overall. He denies any nausea or vomiting. He has had no fever or chills. He denies any diarrhea or constipation. He denies any skin rash. He states his appetite is fair. His energy is good. 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 He does not do a lot because the cold weather at times but when it is nice he does get out and work . He states that his right leg continues to be swollen he states is no worse but it is no better. He states it does go down at night but once he is up on it during the day it returns to the size it is exam. He states that he did try some compression stockings which may have helped some but they are too hard to get on and off so he has omitted them currently. He states there is a little swelling in the left foot but the right foot/leg continues to be the significant problem. It is hard to put his shoes on due to bending of the swollen extremity. He states his only other concern is that he has had significant shortness of breath about 2 days after the treatment. He states he really feels like it may be after the Neulasta shot has been delivered but is uncertain of its delayed results from something else. He states that he does get so short of breath that he has to wear his oxygen. He denies any hemoptysis. Denies any cough. Has had no fever or chills. She denies any wheezing no difficulty swallowing or rash during that time just the significant shortness of breath. He states that generally resolves in a day or 2 and is able to go back to just wears oxygen as needed but during the couple of days that the shortness of breath is occurring he wears his oxygen continuously. He has not had any recent steroids that he is aware of. His ECOG is 1. Past Medical History: Chronic obstructive pulmonary disease Degenerative arthritis Gastroesophageal reflux disease Hypertension Peripheral neuropathy Past Surgical History: Cataract excision Cholecystectomy Left sided port placement in 2016 - Right Lower Lobectomy in 2016 Bone marrow aspiration/biopsy in 2016 Incisional biopsy right neck mass in 2016 Allergies: Seafood (crab legs) Medications: AmLODIPine Besylate 1 (10 mg) Tablet Oral daily Lisinopril 0.5 Tablet (of 40 mg) Oral daily Omeprazole 1 (20 mg) Capsule Delayed Release Oral daily Rosuvastatin Calcium 1 Tablet (of 5 mg) Tablet Oral daily Family History: Mr. Zurita's mother at age 75: lupus, and stroke. Mr. Zurita's father at age 76: [place]. Mr. Zurita has 1 brother who is : congestive heart failure. Father of heart attack age 76. His mother had lupus and of stroke at age 75. A brother at age 77 had a sudden following abdominal surgery. Social History: Mr. Zurita is and he is retired. He is a daily smoker who has smoked 0.5 packs/day for 0 years. He has no history of drinking. Mr. Zurita reports the following support systems: lives with spouse, significant other, family, or friends, lives in own house, supportive family/friends willing to assist with needs, and adequate transportation available for expected visits. His diet consists of regular meals. He indicates his activity level as: daily activities. He has been smoking for 60 years, previously in excess of 2 packs of cigarettes daily. He is currently smoking 1 pack per day. In the past he has tried nicotine patches, but unsuccessfully. He has had some alcohol use in the past, but it was never heavy. He has had no alcohol use for more than 6 years. Review Of Symptoms: Constitutional Denies fevers, chills, night sweats. Mild fatigue. Allergic/Immunologic No reactions. Eyes Denies significant visual changes. No diplopia. No amaurosis. ENMT Denies changes in hearing, sore throat, mouth sores, difficulty or changes in swallowing ability. Sinus drainage. Endocrine Denies hot flashes or night sweats. Hematologic/Lymphatic The patient denies any tender or palpable lymph nodes. Respiratory shortness of breath about 2 days after treatment. Cardiovascular Denies anginal chest pain. Gastrointestinal Denies nausea, vomiting, diarrhea, heartburn, or constipation. Genitourinary (M) Denies hematuria, dysuria, increased frequency, urgency, hesitancy or incontinence. Musculoskeletal Denies joint pain, swelling or redness. No decreased range of motion. Right leg with significant lymphedema presumably due to right inguinal adenopathy. No worse but no better. Integumentary Denies chronic rashes, inflammation, ulcerations or skin changes. Neurologic Denies headache. Psychiatric Denies insomnia, depression, anxiety. Vital Signs: Performed on Dec 14, 2019 08:56 Height - 71.00 in Weight - 205.0 lbs (HIGH) BSA - 2.13 sq.m BMI - 28.59 Temperature - 98.7 F Pulse - 72 /min Respiration - 18 /min BP - 125/59 mm(hg) O2 Sat - 92 % (LOW) Pain - 0,1 - No physically strenuous activity, but ambulatory and able to carry out light or sedentary work (e.g. office work, light house work). (ECOG) Physical Examination: Constitutional Alert, oriented, no acute distress. Skin pale/pink, warm and dry. Head Normocephalic; atraumatic. Eyes Conjunctivae and sclerae are clear and without icterus. Pupils are reactive and equal. Neck Supple without masses or thyromegaly. No jugular venous distension. Hematologic/Lymphatic No petechiae or purpura. No tender or palpable lymph nodes in the cervical, supraclavicular areas. Respiratory Lungs are clear to auscultation without rhonchi or wheezing. Cardiovascular Regular rate and rhythm of heart without murmurs,clicks, gallops or rubs. Chest Chest is symmetric without chest wall deformities. Left venous access device insertion site is unremarkable.. Abdomen Non-tender, non-distended, no masses, ascites. Back/Spine Non-tender to palpation. Extremities Right leg is swollen at 2-3 + currently. Musculoskeletal normal range of motion without obvious weakness. Integumentary No rashes or lesions. Neurologic No sensory or motor deficits, normal cerebellar function, normal-slow- gait. Psychiatric Alert and oriented times three. Coherent speech. Verbalizes understanding of our discussions today. Laboratory:Test performed on Nov 23, 2019 09:42 WBC 15.3 10^9/L RBC 3.93 10^12/L HGB 11.5 g/dL HCT 35.8 % MCV 91.1 fl MCH 29.3 pg MCHC 32.1 g/dL RDW 12.5 % Platelet Count 135 10^9/L MPV 9.5 fL Neutrophils (Gran) 12.4 10^9/L Lymphocytes 1.4 10^9/L Monocytes 0.7 10^9/L Eosinophils 0.5 10^9/L Basophils 0.1 10^9/L Manual Segs 55 % Manual Bands 25 % Manual Lymphocytes 11 % Manual Monocytes 7 % Manual Eosinophils 1 % Manual Basophils 1 % NRBCs 0 /100 WBC Platelet Estimate decreased Test performed on Nov 16, 2019 13:12 LDH, Total 225 IU/L Test performed on Nov 16, 2019 08:52 Glucose 116 mg/dL BUN 20 mg/dL Creatinine 1.2 mg/dL Cr Clearance (Est) 70.21 mL/min Sodium 134 mmol/L Potassium 4.0 mmol/L Chloride 96 mmol/L CO2 28 mmol/L Calcium 9.6 mg/dL Protein, Total 6.3 g/dL Albumin 4.1 g/dL Globulin 2.2 g/dL Bilirubin, Total 12 mg/dL Alkaline Phosphatase 94 IU/L AST (SGOT) 12 IU/L ALT (SGPT) 6 IU/L Test performed on Oct 29, 2019 08:50 Anion Gap 14.8 Neutrophil % 56.8 % Lymphocyte % 22.6 % Monocyte % 7.5 % Eosinophil % 12.3 % Basophils % 0.5 % Impression: 1. Patient with chronic leukocytic leukemia, initially diagnosed in 2001. He initially had early stage disease and he was followed on observation. In January 2016 he presented with extensive and in some areas bulky lymphadenopathy, and he was confirmed by lymph node biopsy to have transformed diffuse large B cell lymphoma. By clinical evaluation, his disease was stage IIIA. His international prognostic index score was 2, intermediate risk. 2. He was treated with 6 cycles of R-CHOP chemotherapy from 02/14/2016 thru 06/05/2016. He experienced treatment-related fatigue and myelosuppression, including grade 2 anemia and grade 4 neutropenia. He also had some worsening of peripheral neuropathy, mainly in the left hand, where it was grade 3. Restaging CT scans on 07/01/2016 showed significant improvement in the lymphadenopathy, though not complete resolution. Three noncalcified 5 mm pulmonary nodules in the right lung were noted to be stable. 3. His follow-up chest CT in August 2016 showed enlargement of a right lower lobe pulmonary nodule. He underwent right lower lobectomy on 10/28/2016. Pathology confirmed grade 2/4 infiltrating adenocarcinoma, stage IA (T1a, N0, M0). His other medical illnesses include: 2. COPD. 3. Hypertension. 4. GERD. 5. Peripheral neuropathy. This appears to be idiopathic. 6. Nicotine dependence (cigarettes). During followup his initial surveillance CT scans had shown no evidence of recurrence of the lung cancer or lymphoma. His surveillance CT scans in January 2018 showed slight increase in size of a right apical pulmonary nodule measuring 14 x 8 mm and interval development of right hilar necrotic lymphadenopathy measuring 2.4 x 1.7 cm. On further evaluation with PET/CT, both lesions were FDG positive, suspicious for a new non-small cell lung cancer. He underwent bronchoscopy with EBUS on 03/13/2018. The right apical lesion was not accessible. 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 FNA of a station 7 lymph node showed no malignancy. As such, he had a new confirmed non-small cell carcinoma involving the upper lobe of the right lung. Based on the presence of a second tumor nodule within the right upper lobe, his disease was stage IIB (T3, N0, M0). He was given SBRT to the right upper lobe lesion, completed on 04/07/2018 to a total dose of 4800 cGy. He then began radiation to the right hilar lesion, currently with weekly carboplatin/Taxol chemotherapy on 04/09/2018. He completed the first 2 weekly chemotherapy infusions with no significant toxicity. His week 3 treatment was delayed 4 days due to symptoms of COPD exacerbation, but those did improve after treatment with Levaquin and prednisone. He was then able to continue the remainder of his chemotherapy on schedule. He completed his sixth and final infusion of carboplatin/Taxol on 05/18/2018. He completed radiation on 05/27/2018, total dose 1600 cGy. Overall, he tolerated his treatment well. He appeared to have significant response by follow-up chest CT. During follow-up he had initially remained stable clinically with no obvious progression of the lung cancer. However, his repeat CT scans July 2019 showed some progression of lymphadenopathy as well as increased pleural thickening associated with the residual right upper lobe mass. His restaging PET/CT on 07/24/2019 showed progression of the right apical pulmonary nodule as well as suspected bilateral metastatic pulmonary nodules and an FDG avid right femoral lymph node which appeared suspicious for recurrent lymphoma. The pulmonary nodules did not appear to be accessible for biopsy. Right inguinal lymph node biopsy on 10/12/2019 confirmed recurrent diffuse large B-cell lymphoma, germinal center subtype. Restaging PET/CT on 11/13/2019 showed significant progression of lymphoma in the right inguinal/pelvic area. There was also progression of the right apical pulmonary nodule and an additional left upper lobe and right lower lobe pulmonary nodules. The pulmonary nodules had been deemed inaccessible for biopsy. On 11/16/2019 he began cycle 1 of salvage chemotherapy with R-gem ox. He has had nausea/vomiting following his day two chemotherapy, but it had resolved by the next day. He states the nausea meds help if he takes them, but has required only 1 dose so far. He has otherwise tolerated the chemotherapy very well. By clinical evaluation, he does appear to be showing significant response although he continues to have right leg edema. Plan: 1. Proceed with cycle 3 Rituxan today. He will return for day 2 gemcitabine and oxaliplatin tomorrow as scheduled. We will continue the increased/additional antiemetics as this is working well for him. 2. Requested that he try a dexamethasone taper starting on day 2 at night or early day 3. We will continue with the Neulasta support. 3. Labs from 10/12/2020 were reviewed in detail discussed with Mr. Zurita and his family. WBC 10.5, hemoglobin 11.9, platelets 141,000 ANC is 8000 potassium is 3.4 random glucose is 99 LFTs are normal and his creatinine is 1.2. His alk phos is slightly elevated at 156 his LDH is normal at 202. 4. We will plan to see him back in 2 weeks with CBC CMP LDH and follow-up at which time he will be due for cycle 4 chemotherapy. 5. Mr. Zurita was instructed to contact us in the interim should questions or problems arise. Of asked him to let us know if the steroid taper does not help with his shortness of breath. He does have a couple of inhalers at home and has been advised he could try them if he feels like he is significant short of breath or any type of wheezing. Signed By: Nohelia Pringle-, [facility] Jus Castano MD <<Signature on File>>
[2019-12-15] MEDS: sodium chloride 0.9% 250 ML 75 ML IV (08:40)
[2019-12-15] MEDS: dextrose 5% 250 ML 75 ML IV (08:40)
[2019-12-15] MEDS: alteplase 1 mg/mL SDV 2 mL 2 MG IV (09:45)
[2019-12-15] MEDS: pegfilgrastim 6 mg/0.6 mL Kit (onpro) SUBCUT (14:27)
[2019-12-21 15:24] LABS: Eosinophils # 0.1 10^3/uL (0.0-0.8); Eosinophils % 0.2 %; Hemoglobin 11.3 g/dL (11.7-16.6); Lymphocytes # 2.4 10^3/uL (0.8-4.8); Lymphocytes % 5.8 %; Mean Corpuscular HGB Conc 31.4 g/dL (30.0-36.0); Mean Corpuscular Hemoglobin 29.4 pg (28.0-34.0); Mean Corpuscular Volume 93.8 fL (80-94); Mean Platelet Volume 10.4 fL (7.4-10.4); Monocytes # 2.5 10^3/uL (0.2-0.9); Monocytes % 6.1 %; Neutrophils % 81.5 %; Nucleated Red Blood Cells % 0 %; Platelet Count 208 10^3/cmm (130-400); Red Blood Count 3.84 10^6/uL (4.1-5.3); Red Cell Distribution Width 15.1 % (12.1-15.1)
[2019-12-21 18:50] LABS: Slide Review Slide Review Perform; White Blood Count 41.7 10^3/uL (4.0-10.0)
[2019-12-27 16:11] LABS: Basophils % 0.3 %; Eosinophils # 0.2 10^3/uL (0.0-0.8); Eosinophils % 1.3 %; Hemoglobin 10.6 g/dL (11.7-16.6); Lymphocytes # 0.9 10^3/uL (0.8-4.8); Lymphocytes % 7.3 %; Mean Corpuscular HGB Conc 31.2 g/dL (30.0-36.0); Mean Corpuscular Volume 89.9 fL (80-94); Mean Platelet Volume 10.7 fL (7.4-10.4); Monocytes # 1.3 10^3/uL (0.2-0.9); Monocytes % 11.1 %; Neutrophils # 9.2 10^3/uL (1.8-7.7); Neutrophils % 77.4 %; Nucleated Red Blood Cells % 0 %; Platelet Count 144 10^3/cmm (130-400); Red Blood Count 3.78 10^6/uL (4.1-5.3); Red Cell Distribution Width 15.7 % (12.1-15.1); White Blood Count 11.9 10^3/uL (4.0-10.0)
[2019-12-27 18:58] LABS: Alanine Aminotransferase 20 U/L (0-41); Albumin Level 3.8 g/dL (3.5-5.2); Alkaline Phosphatase 155 IU/L (40-130); Anion Gap 17.4 (5-19); Aspartate Amino Transferase 16 U/L (0-40); Blood Urea Nitrogen 16 mg/dL (8-23); Calcium 9.8 mg/dL (8.5-10.5); Carbon Dioxide 28 mmol/L (22-29); Chloride 95 mmol/L (98-107); Globulin 3.2 g/dL (1.3-4.6); Glucose 82 mg/dL (65-115); Lactate Dehydrogenase 239 U/L (135-225); Potassium 4.4 mmol/L (3.5-5.1); Sodium 136 mmol/L (136-145); Total Bilirubin 0.4 mg/dL (0.15-1.2)
[2019-12-28] MEDS: acetaminophen 325 mg Tablet 650 MG PO (10:05)
[2019-12-29] MEDS: sodium chloride 0.9% 250 ML 75 ML IV (08:45)
[2019-12-29] MEDS: palonosetron 0.25 mg/5 mL SDV IV (09:02)
[2019-12-29] MEDS: dextrose 5% 250 ML 75 ML IV (10:30)
--- NOTE | 2019-12-29 10:59 | ONC FU_ITS ---
[facility] Patient Note Patient: Armando Zurita Unit #: [id number]: 1945 Dictated By: Nohelia PringleDate of Visit: Dec 28, 2019 Onc MED Follow-Up/Prog Note Chief Complaint: Chronic lymphocytic leukemia/transformed lymphoma and lung cancer. 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 He also has been treated for nonsmall cell cancer of the right lung. He had known chronic lymphocytic leukemia, initially diagnosed in 2001. He had mostly been followed through the [place]. He had early stage disease, and he had been monitored on observation. Dr Castano had seen him initially on 01/09/2016 because of increasing lymphocytosis and peripheral lymphadenopathy. The most significant area of adenopathy was in the right side of the neck. A contrast-enhanced neck CT on 01/01/2016 showed extensive multilevel cervical lymphadenopathy and to a lesser extent mediastinal and hilar lymphadenopathy. The largest interventional lymph node appeared to be a right anterior cervical node at level 3 measuring about 5.7 cm in diameter. It was associated with displacement of the right parotid gland and near complete effacement of the right internal jugular vein. A left-sided level 3 cervical node measured 3.1 cm and a left-sided level 4 supraclavicular lymph node measured 3.6 cm. His subsequent evaluation included staging CT scans of the chest/abdomen/pelvis on 01/30/2016. These showed significant, generalized lymphadenopathy and mild splenomegaly. Also noted were subcentimeter pulmonary nodules of undetermined significance. He underwent incisional biopsy of the right neck mass on 01/31/2016. Pathology was consistent with diffuse large B-cell lymphoma, germinal center subtype with high-grade features. Bone marrow aspiration/biopsy on 02/09/2016 did show evidence of chronic lymphocytic leukemia, but no evidence of involvement with the diffuse large B-cell lymphoma. He initiated a course of treatment with R-CHOP chemotherapy on 02/14/2016. His baseline echocardiogram showed adequate LV function with estimated ejection fraction at 55%. His day 1 treatment was complicated by a hypersensitivity reaction to the rituximab, significant enough that he did require treatment with epinephrine. As such, the rituximab infusion was not completed, but he was able to return the following day and complete the CHOP portion of the treatment. The rituximab was re-introduced with the second cycle, and with premedication he tolerated it well. He completed his 6th cycle of treatment on 06/05/2016. Restaging CT scan of the chest, abdomen, and pelvis on 07/01/2016 showed moderate improvement in lymphadenopathy throughout the chest, abdomen and pelvis since the prior study. There were no new lymph nodes or progression of adenopathy noted. Chest CT performed on 09/03/2016 showed enlarging superior segment right lower lobe lung nodule suspicious for primary lung neoplasm. On 10/28/2016 he underwent right lower lobectomy. Pathology showed grade 2/4 infiltrating adenocarcinoma measuring 1.5 x 1.4 cm. The bronchial margin of resection was free by 4 cm. The pleural surface was free by 0.2 cm. There was no involvement in 4 hilar lymph nodes. His pathologic stage thus was IA (T1a, N0, M0). Surveillance CT scans of the chest, abdomen, and pelvis on 05/22/2017 showed a spiculated pleural-based nodule in the right upper lobe measuring 8 mm and an additional nodule measuring 6 mm in the medial right upper lobe. Both of these appear to be new from previous studies. Also noted were new tree-in-bud airspace abnormalities in the right upper lobe and right middle lobe and there was a possible 3 mm nodule in the left lower lobe. Findings were felt to be consistent either with infectious process or early metastatic disease. Also noted was a slight increase in the size of mediastinal and hilar lymph nodes compared to August 2016, with the largest node at the left hilum measuring 12 mm. He continued observation/expectant management. A repeat chest CT on 08/22/2017 showed moderate improvement in the aeration throughout both lungs compared to the study from May. A 7 mm right upper lobe subpleural nodule appeared stable. There was near complete resolution of the parenchymal nodule in the right upper lobe. There was a small persistent right pleural effusion. He continued on observation/expectant management. His surveillance CT scans of the chest, abdomen, and pelvis on 01/30/2018 showed increase in the right apical spiculated pulmonary nodule, measuring 14 x 8 mm compared to 7 mm on the prior study. There was interval development of necrotic right hilar lymphadenopathy measuring 2.4 x 1.7 cm. A 9 mm left infrahilar lymph node and a prevascular 12 mm lymph node appeared unchanged. There were new bilateral lower lung zone tree-in-bud nodular opacities, favoring infection or postinflammatory change. Retroperitoneal and inguinal lymph nodes measuring 1-2 cm appeared unchanged, as did additional inguinal, peritoneal, and mesenteric subcentimeter lymph nodes. He had further evaluation with PET/CT on 02/07/2018. It showed a 1.3 cm right lung apical nodule with SUV 4.5, new from the prior CT and suspicious for recurrence. A hypermetabolic superior right hilar lymph node also was consistent with malignancy, SUV 10.6. There were no other areas of significant FDG uptake. He was referred to Dr. Cristian Wong in [place]. He underwent bronchoscopy with EBUS on 03/13/2018. 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 FNA of a station 7 lymph node showed no malignancy. FNA of a station 4R lymph node was insufficient to exclude metastatic disease. He was referred to Dr. Glass and it was recommended that he undergo SBRT to the right upper lobe lesion followed by chemoradiation to the hilar lesion. He completed the SBRT on 04/07/2018 to a total dose of 4800 cGy. He began radiation to the hilar lesion, concurrently with weekly carboplatin/Taxol chemotherapy on 04/09/2018. He had no significant toxicity with his initial chemotherapy infusion, and he received his 2nd infusion of carbo/Taxol on 04/16/2018. His week 3 treatment was delayed 4 days due to a COPD exacerbation, but those symptoms did improve on treatment with Levaquin and prednisone. He was then able to continue his further chemotherapy on schedule. He received his 6th and final infusion of carboplatin/Taxol on 05/18/2018. He completed radiation on 05/27/2018 to a total dose of [address] on 06/30/2018 showed residual spiculated nodule in the right upper lobe measuring 11 mm, slightly smaller from the previous study. Right hilar necrotic lymphadenopathy also was noted to have improved, measuring 12 mm. Previously described pulmonary infiltrates in the right upper lobe were noted to have resolved. There were no other significant changes. Repeat chest CT on 10/05/2018 showed stable spiculated nodule in the right upper lobe measuring 10 x 6 mm. The central left upper lobe nodule measuring 7.5 mm appeared slightly more consolidated. Numerous subcentimeter retroperitoneal lymph nodes also appeared stable. Intermediate hilar lymph nodes also appeared stable. His chest CT on 01/07/2019 showed stable appearance of the right apical spiculated nodule measuring 11 x 7 mm in the left upper lobe noncalcified nodule measuring 7-8 mm. Incompletely visualized retroperitoneal subcentimeter lymph nodes also appeared stable. Overall, there was no evidence of disease progression in the chest. He continued on observation/expectant management. His other medical illnesses include hypertension, COPD, GERD, degenerative arthritis, and peripheral neuropathy. His only prior surgery was a cholecystectomy. He has a 60 year history of smoking, previously in excess of 2 packs of cigarettes daily. He continues to smoke 1 pack per day. INTERIM HISTORY: Repeat CT scans on 07/19/2019 showed spiculated right upper lobe mass with increased pleural thickening, measuring approximately 2.9 x 1.5 CM. There was progression of a noncalcified nodule in the left upper lobe measuring 12 mm. A new noncalcified spiculated nodule was noted in the right hilum measuring 9 mm. The abdomen/pelvis showed stable prominent periaortic and retroperitoneal lymph nodes, the largest measuring approximately 9 mm. Prominent lymph nodes along the mesenteric root appeared unchanged. Enlarged bilateral inguinal lymph nodes were noted to have shown interval progression since 10/05/2018, with the largest right inguinal lymph node measuring 2.1 x 1.9 cm. A restaging PET/CT on 07/24/2019 showed FDG avid right apical pulmonary nodule measuring 1.4 x 2.1 cm, SUV 5.4, consistent with disease progression. A right hilar lymph node showed decreased FDG avidity, SUV 5.4 compared to 10.6 on the previous study. A new left upper lobe nodule measuring 1.2 cm had SUV 3.2, consistent with new metastatic disease. A 9 mm right lower lobe nodule was also noted to be FDG positive and suspicious for metastatic disease. A 2.0 cm right femoral lymph node had elevated SUV of 4.9, suspicious for recurrent lymphoma. Other scattered mesenteric and pelvic nodes appeared unchanged. After review of the CT scans with the radiologist, it appeared that the pulmonary nodules were not accessible for biopsy. He ultimately was referred to Dr. Almendarez for biopsy of the right inguinal lymph node. The procedure was done on 10/12/2019 and pathology did confirm recurrent diffuse large B-cell lymphoma, germinal center subtype. A repeat PET/CT on 11/13/2019 showed unchange in right apical pulmonary nodule with SUV 7.9 compared to 5.4 on the prior study. Mild uptake in a right hilar lymph node was unchanged. A left upper pulmonary nodule had increased in size from 1.2 cm to 1.8 cm with SUV increased from 2.7 to 3.2, and a right lower lobe nodule measured 1.3 cm with SUV 6.9, consistent with progression. There was residual mass in the right inguinal area measuring 5.1 x 5.9 cm with SUV 12.8, strongly consistent with lymphoma. Multiple other FDG positive nodes were present in the right femoral and external iliac territories, including a right external iliac node measuring 6.4 x 4.2 cm with SUV 10.1. There were additional FDG positive nodes in the right common iliac and bilateral periaortic territories, consistent with lymphoma. Prominent mesenteric nodes did not appear significantly changed. Due to his underlying COPD and multiple malignancies, he did not appear to be eligible for autologous stem cell transplant. As such, he began a course of salvage chemotherapy with R-gem ox, cycle 1 day 11/16/2019. Mr. Zurita is here today for follow-up. He is due for cycle 4 R???gem/ox. He is doing well overall. He denies any nausea or vomiting. He states he is had no diarrhea. He states his appetite is good and his energy is fair. However he continues to have significant shortness of breath starting sometimes the night of the chemotherapy and lasting for 2 to 3 days afterwards. He states is always on day 2 after the second bag . In discussing this with the chemo nurses, the second bag is oxaliplatin. He denies any rash or trouble swallowing with the shortness of breath. It is significant enough he takes it real easy for 2-3 days and wears his oxygen continuously during that time. He states once he gets past 2-3 days after the chemo, it resolves and he can breath like he normally does. He did try a steroid taper after the last treatment and states it didn't help much if any. He states his bowels and bladder are normal for him. He has had no residual neuropathy. He does have some cold-induced neuropathy after the oxaliplatin but states it resolves in 3 to 4 days. He denies any other concerns. He states other than the shortness of breath he feels really good. His ECOG today is 1. Past Medical History: Chronic obstructive pulmonary disease Degenerative arthritis Gastroesophageal reflux disease Hypertension Peripheral neuropathy Past Surgical History: Cataract excision Cholecystectomy Left sided port placement in 2016 - Right Lower Lobectomy in 2016 Bone marrow aspiration/biopsy in 2016 Incisional biopsy right neck mass in 2016 Allergies: Seafood (crab legs) Medications: AmLODIPine Besylate 1 (10 mg) Tablet Oral daily Lisinopril 0.5 Tablet (of 40 mg) Oral daily Omeprazole 1 (20 mg) Capsule Delayed Release Oral daily Rosuvastatin Calcium 1 Tablet (of 5 mg) Tablet Oral daily Family History: Mr. Zurita's mother at age 75: lupus, and stroke. Mr. Zurita's father at age 76: GA. Mr. Zurita has 1 brother who is : congestive heart failure. Father of heart attack age 76. His mother had lupus and of stroke at age 75. A brother at age 77 had a sudden following abdominal surgery. Social History: Mr. Zurita is and he is retired. He is a daily smoker who has smoked 0.5 packs/day for 0 years. He has no history of drinking. Mr. Zurita reports the following support systems: lives with spouse, significant other, family, or friends, lives in own house, supportive family/friends willing to assist with needs, and adequate transportation available for expected visits. His diet consists of regular meals. He indicates his activity level as: daily activities. He has been smoking for 60 years, previously in excess of 2 packs of cigarettes daily. He is currently smoking 1 pack per day. In the past he has tried nicotine patches, but unsuccessfully. He has had some alcohol use in the past, but it was never heavy. He has had no alcohol use for more than 6 years. Review Of Symptoms: Constitutional Denies fevers, chills, night sweats. Mild fatigue. Allergic/Immunologic No reactions. Eyes Denies significant visual changes. No diplopia. No amaurosis. ENMT Denies changes in hearing, sore throat, mouth sores, difficulty or changes in swallowing ability. Sinus drainage better this week. Endocrine Denies hot flashes or night sweats. Hematologic/Lymphatic The patient denies any tender or palpable lymph nodes. Respiratory continued significant shortness of breath about 2 days after treatment-lasts 2-3 days-see above. Cardiovascular Denies anginal chest pain. Gastrointestinal Denies nausea, vomiting, diarrhea, heartburn, or constipation. Genitourinary (M) Denies hematuria, dysuria, increased frequency, urgency, hesitancy or incontinence. Musculoskeletal Denies joint pain, swelling or redness. No decreased range of motion. Right leg with lymphedema presumably due to right inguinal adenopathy. No worse but no better. Integumentary Denies chronic rashes, inflammation, ulcerations or skin changes. Neurologic Denies headache. Psychiatric Denies insomnia, depression, anxiety. Vital Signs: Performed on Dec 28, 2019 09:08 Height - 71.00 in Weight - 202.0 lbs (LOW) BSA - 2.12 sq.m BMI - 28.17 Temperature - 97.6 F (LOW) Pulse - 72 /min Respiration - 18 /min BP - 132/58 mm(hg) O2 Sat - 94 % (LOW) Pain - 0 Fatigue - 3,1 - No physically strenuous activity, but ambulatory and able to carry out light or sedentary work (e.g. office work, light house work). (ECOG) Physical Examination: Constitutional Alert, oriented, no acute distress. Skin pale/pink, warm and dry. Head Normocephalic; atraumatic. Eyes Conjunctivae and sclerae are clear and without icterus. Pupils are reactive and equal. ENMT Sinuses are nontender. No oral exudates, ulcers, masses, thrush or mucositis. Oropharynx clear. Tongue normal. Neck Supple without masses or thyromegaly. No jugular venous distension. Hematologic/Lymphatic No petechiae or purpura. No tender or palpable lymph nodes in the cervical, supraclavicular areas. Respiratory Lungs are clear to auscultation without rhonchi or wheezing. Cardiovascular Regular rate and rhythm of heart without murmurs,clicks, gallops or rubs. Chest Chest is symmetric without chest wall deformities. Left venous access device insertion site is unremarkable.. Abdomen Non-tender, non-distended, no masses, ascites. Back/Spine Non-tender to palpation. Extremities Right leg is swollen at 2-3 + currently. Musculoskeletal normal range of motion without obvious weakness. Integumentary No rashes or lesions. Neurologic No sensory or motor deficits, normal cerebellar function, normal-slow- gait. Psychiatric Alert and oriented times three. Coherent speech. Verbalizes understanding of our discussions today. Laboratory:Test performed on Dec 13, 2019 11:45 LDH (Total) 202 U/L Sodium 134 mmol/L Potassium 3.9 mmol/L Chloride 94 mmol/L CO2 30 mmol/L Anion Gap 13.9 BUN 11 mg/dL Creatinine 1.2 mg/dL Cr Clearance (Est) 70.2100 mL/min Glucose 99 mg/dL Calcium 9.5 mg/dL Protein, Total 6.9 g/dL Albumin 3.7 g/dL Globulin 3.2 g/dL Bilirubin, Total 0.5 mg/dL ALT (SGPT) 25 U/L AST (SGOT) 19 U/L Alkaline Phosphatase 156 IU/L WBC 10.5 10 3/uL RBC 4.09 10 6/uL HGB 11.9 g/dL HCT 37.7 % MCV 92.2 fL MCH 29.1 pg MCHC 31.6 g/dL RDW 14.5 % Platelet Count 141 10 3/cmm MPV 10.0 fL Neutrophils 8.0 10 3/uL Lymphocytes 1.0 10 3/uL Monocytes 1.1 10 3/uL Eosinophils 0.1 10 3/uL Basophils 0.1 10 3/uL Neutrophil % 75.8 % Lymphocyte % 9.6 % Monocyte % 10.9 % Eosinophil % 0.5 % Basophils % 0.6 % Impression: 1. Patient with chronic leukocytic leukemia, initially diagnosed in 2001. He initially had early stage disease and he was followed on observation. In January 2016 he presented with extensive and in some areas bulky lymphadenopathy, and he was confirmed by lymph node biopsy to have transformed diffuse large B cell lymphoma. By clinical evaluation, his disease was stage IIIA. His international prognostic index score was 2, intermediate risk. 2. He was treated with 6 cycles of R-CHOP chemotherapy from 02/14/2016 thru 06/05/2016. He experienced treatment-related fatigue and myelosuppression, including grade 2 anemia and grade 4 neutropenia. He also had some worsening of peripheral neuropathy, mainly in the left hand, where it was grade 3. Restaging CT scans on 07/01/2016 showed significant improvement in the lymphadenopathy, though not complete resolution. Three noncalcified 5 mm pulmonary nodules in the right lung were noted to be stable. 3. His follow-up chest CT in August 2016 showed enlargement of a right lower lobe pulmonary nodule. He underwent right lower lobectomy on 10/28/2016. Pathology confirmed grade 2/4 infiltrating adenocarcinoma, stage IA (T1a, N0, M0). His other medical illnesses include: 2. COPD. 3. Hypertension. 4. GERD. 5. Peripheral neuropathy. This appears to be idiopathic. 6. Nicotine dependence (cigarettes). During followup his initial surveillance CT scans had shown no evidence of recurrence of the lung cancer or lymphoma. His surveillance CT scans in January 2018 showed slight increase in size of a right apical pulmonary nodule measuring 14 x 8 mm and interval development of right hilar necrotic lymphadenopathy measuring 2.4 x 1.7 cm. On further evaluation with PET/CT, both lesions were FDG positive, suspicious for a new non-small cell lung cancer. He underwent bronchoscopy with EBUS on 03/13/2018. The right apical lesion was not accessible. 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 FNA of a station 7 lymph node showed no malignancy. As such, he had a new confirmed non-small cell carcinoma involving the upper lobe of the right lung. Based on the presence of a second tumor nodule within the right upper lobe, his disease was stage IIB (T3, N0, M0). He was given SBRT to the right upper lobe lesion, completed on 04/07/2018 to a total dose of 4800 cGy. He then began radiation to the right hilar lesion, currently with weekly carboplatin/Taxol chemotherapy on 04/09/2018. He completed the first 2 weekly chemotherapy infusions with no significant toxicity. His week 3 treatment was delayed 4 days due to symptoms of COPD exacerbation, but those did improve after treatment with Levaquin and prednisone. He was then able to continue the remainder of his chemotherapy on schedule. He completed his sixth and final infusion of carboplatin/Taxol on 05/18/2018. He completed radiation on 05/27/2018, total dose 1600 cGy. Overall, he tolerated his treatment well. He appeared to have significant response by follow-up chest CT. During follow-up he had initially remained stable clinically with no obvious progression of the lung cancer. However, his repeat CT scans July 2019 showed some progression of lymphadenopathy as well as increased pleural thickening associated with the residual right upper lobe mass. His restaging PET/CT on 07/24/2019 showed progression of the right apical pulmonary nodule as well as suspected bilateral metastatic pulmonary nodules and an FDG avid right femoral lymph node which appeared suspicious for recurrent lymphoma. The pulmonary nodules did not appear to be accessible for biopsy. Right inguinal lymph node biopsy on 10/12/2019 confirmed recurrent diffuse large B-cell lymphoma, germinal center subtype. Restaging PET/CT on 11/13/2019 showed significant progression of lymphoma in the right inguinal/pelvic area. There was also progression of the right apical pulmonary nodule and an additional left upper lobe and right lower lobe pulmonary nodules. The pulmonary nodules had been deemed inaccessible for biopsy. On 11/16/2019 he began cycle 1 of salvage chemotherapy with R-gem ox. He has had nausea/vomiting following his day two chemotherapy, but it had resolved by the next day. He states the nausea meds help if he takes them, but has required only 1 dose so far. He has otherwise tolerated the chemotherapy very well. By clinical evaluation, he does appear to be showing response although he continues to have right leg edema. He has not had restaging imaging since starting the [place]/Ox. Plan: 1. Proceed with cycle 4 day 1 Rituxan today. He will return for day 2 gemcitabine and oxaliplatin tomorrow as scheduled. I did add additional premeds to day 2 to try to see if this will have any bearing on the shortness of breath post treatment. I added Solumedrol (dced the dexamethasone for now), added Pepcid and Benadryl. I aslo added them to today's premeds in attempt to load him for tomorrow. He can continue Duo Neb in the clinic and use MDIs at home prn. 2. We will continue with the Neulasta support. 3. Labs from 12/27/2019 were reviewed in detail discussed with Mr. Zurita and his family. WBC 11.9, hemoglobin 10.6, platelets 144,000 ANC is 6200 potassium is 4.4 random glucose is 82 LFTs are normal and his creatinine is 1.2. His alk phos is stable at 155 his LDH i 239. 4. We will plan to see him back in 2 weeks with CBC CMP LDH and follow-up at which time he will be due for cycle 5 chemotherapy. I have asked for restaging imaging prior to the next cycle of chemotherapy. I want to make sure he is having response to this regimen as he is having the significant shortness of breath with day 2 treatment and I am not sure how well the additional premeds with help with that on day 2. 5. Mr. Zurita was instructed to contact us in the interim should questions or problems arise. Signed By: Nohelia Pringle-, AOCNP Jus Castano MD <<Signature on File>>
[2019-12-29] MEDS: pegfilgrastim 6 mg/0.6 mL Kit (onpro) SUBCUT (12:55)
== END 2020-01-08 23:59 | disposition home or self-care (01) ==
LOC: ONCMED 05:47
PROVIDERS: Family Provider Emergency Medicine Emergency Medical Services; PCP Emergency Medicine Emergency Medical Services; Visit Provider Nurse Practitioner
DX: Z51.12 Encounter for antineoplastic immunotherapy (principal); Z51.11 Encounter for antineoplastic chemotherapy; C83.38 Diffuse large B-cell lymphoma, lymph nodes of multiple sites; C34.11 Malignant neoplasm of upper lobe, right bronchus or lung; C78.02 Secondary malignant neoplasm of left lung; D70.1 Agranulocytosis secondary to cancer chemotherapy; T45.1X5A Adverse effect of antineoplastic and immunosuppressive drugs, initial encounter; T82.594A Other mechanical complication of infusion catheter, initial encounter; Y80.1 Therapeutic (nonsurgical) and rehabilitative physical medicine devices associated with adverse incidents; I10 Essential (primary) hypertension; J44.9 Chronic obstructive pulmonary disease, unspecified; K21.9 Gastro-esophageal reflux disease without esophagitis; M19.90 Unspecified osteoarthritis, unspecified site; G60.9 Hereditary and idiopathic neuropathy, unspecified; F17.210 Nicotine dependence, cigarettes, uncomplicated; Z79.899 Other long term (current) drug therapy; Z90.2 Acquired absence of lung [part of]; Z92.3 Personal history of irradiation
CPT/HCPCS: 36415; 36593; 80053; 83615; 85025; 96367; 96372; 96375; 96413; 96415; 96417; 99214; J1100; J1200; J1453; J2469; J2505; J2930; J2997; J3490; J7040; J7050; J9201; J9263; J9312

== ENCOUNTER 2020-01-26 05:48 | Outpatient (RCR) | payer OTHER, SELFPAY ==
[2020-01-10 16:55] LABS: Basophils % 0.5 %; Eosinophils # 0.2 10^3/uL (0.0-0.8); Eosinophils % 2.6 %; Hematocrit 37.3 % (42.0-52.0); Hemoglobin 11.5 g/dL (11.7-16.6); Lymphocytes # 0.8 10^3/uL (0.8-4.8); Lymphocytes % 9.8 %; Mean Corpuscular HGB Conc 30.8 g/dL (30.0-36.0); Mean Corpuscular Hemoglobin 29.8 pg (28.0-34.0); Mean Corpuscular Volume 96.6 fL (80-94); Mean Platelet Volume 10.2 fL (7.4-10.4); Neutrophils # 5.9 10^3/uL (1.8-7.7); Neutrophils % 72.2 %; Nucleated Red Blood Cells % 0 %; Platelet Count 175 10^3/cmm (130-400); Red Blood Count 3.86 10^6/uL (4.1-5.3); White Blood Count 8.2 10^3/uL (4.0-10.0)
[2020-01-10 19:25] LABS: Alanine Aminotransferase 28 U/L (0-41); Alkaline Phosphatase 151 IU/L (40-130); Aspartate Amino Transferase 22 U/L (0-40); Blood Urea Nitrogen 10 mg/dL (8-23); Calcium 9.5 mg/dL (8.5-10.5); Carbon Dioxide 29 mmol/L (22-29); Chloride 98 mmol/L (98-107); Globulin 2.8 g/dL (1.3-4.6); Glucose 76 mg/dL (65-115); Sodium 139 mmol/L (136-145); Total Bilirubin 0.3 mg/dL (0.15-1.2); Total Protein 6.8 g/dL (6.6-8.7)
[2020-01-11] MEDS: acetaminophen 325 mg Tablet 650 MG PO (10:40)
[2020-01-11] MEDS: sodium chloride 0.9% 250 ML 75 ML IV (10:40)
--- NOTE | 2020-01-12 06:13 | ONC FU_ITS ---
Dr. Castano Patient Follow-Up Note Patient: Armando Zurita Unit #: [id number]: 1945 Dicatated By: Jus Castano M.D.Date of Visit:Jan 11, 2020 Onc Med Follow-up/Prog Note Chief Complaint: Chronic lymphocytic leukemia/transformed lymphoma and lung cancer. 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 He also has been treated for nonsmall cell cancer of the right lung. He had known chronic lymphocytic leukemia, initially diagnosed in 2001. He had mostly been followed through the [place]. He had early stage disease, and he had been monitored on observation. I had seen him initially on 01/09/2016 because of increasing lymphocytosis and peripheral lymphadenopathy. The most significant area of adenopathy was in the right side of the neck. A contrast-enhanced neck CT on 01/01/2016 showed extensive multilevel cervical lymphadenopathy and to a lesser extent mediastinal and hilar lymphadenopathy. The largest interventional lymph node appeared to be a right anterior cervical node at level 3 measuring about 5.7 cm in diameter. It was associated with displacement of the right parotid gland and near complete effacement of the right internal jugular vein. A left-sided level 3 cervical node measured 3.1 cm and a left-sided level 4 supraclavicular lymph node measured 3.6 cm. His subsequent evaluation included staging CT scans of the chest/abdomen/pelvis on 01/30/2016. These showed significant, generalized lymphadenopathy and mild splenomegaly. Also noted were subcentimeter pulmonary nodules of undetermined significance. He underwent incisional biopsy of the right neck mass on 01/31/2016. Pathology was consistent with diffuse large B-cell lymphoma, germinal center subtype with high-grade features. Bone marrow aspiration/biopsy on 02/09/2016 did show evidence of chronic lymphocytic leukemia, but no evidence of involvement with the diffuse large B-cell lymphoma. He initiated a course of treatment with R-CHOP chemotherapy on 02/14/2016. His baseline echocardiogram showed adequate LV function with estimated ejection fraction at 55%. His day 1 treatment was complicated by a hypersensitivity reaction to the rituximab, significant enough that he did require treatment with epinephrine. As such, the rituximab infusion was not completed, but he was able to return the following day and complete the CHOP portion of the treatment. The rituximab was re-introduced with the second cycle, and with premedication he tolerated it well. He completed his 6th cycle of treatment on 06/05/2016. Restaging CT scan of the chest, abdomen, and pelvis on 07/01/2016 showed moderate improvement in lymphadenopathy throughout the chest, abdomen and pelvis since the prior study. There were no new lymph nodes or progression of adenopathy noted. Chest CT performed on 09/03/2016 showed enlarging superior segment right lower lobe lung nodule suspicious for primary lung neoplasm. On 10/28/2016 he underwent right lower lobectomy. Pathology showed grade 2/4 infiltrating adenocarcinoma measuring 1.5 x 1.4 cm. The bronchial margin of resection was free by 4 cm. The pleural surface was free by 0.2 cm. There was no involvement in 4 hilar lymph nodes. His pathologic stage thus was IA (T1a, N0, M0). Surveillance CT scans of the chest, abdomen, and pelvis on 05/22/2017 showed a spiculated pleural-based nodule in the right upper lobe measuring 8 mm and an additional nodule measuring 6 mm in the medial right upper lobe. Both of these appear to be new from previous studies. Also noted were new tree-in-bud airspace abnormalities in the right upper lobe and right middle lobe and there was a possible 3 mm nodule in the left lower lobe. Findings were felt to be consistent either with infectious process or early metastatic disease. Also noted was a slight increase in the size of mediastinal and hilar lymph nodes compared to August 2016, with the largest node at the left hilum measuring 12 mm. He continued observation/expectant management. A repeat chest CT on 08/22/2017 showed moderate improvement in the aeration throughout both lungs compared to the study from May. A 7 mm right upper lobe subpleural nodule appeared stable. There was near complete resolution of the parenchymal nodule in the right upper lobe. There was a small persistent right pleural effusion. He continued on observation/expectant management. His surveillance CT scans of the chest, abdomen, and pelvis on 01/30/2018 showed increase in the right apical spiculated pulmonary nodule, measuring 14 x 8 mm compared to 7 mm on the prior study. There was interval development of necrotic right hilar lymphadenopathy measuring 2.4 x 1.7 cm. A 9 mm left infrahilar lymph node and a prevascular 12 mm lymph node appeared unchanged. There were new bilateral lower lung zone tree-in-bud nodular opacities, favoring infection or postinflammatory change. Retroperitoneal and inguinal lymph nodes measuring 1-2 cm appeared unchanged, as did additional inguinal, peritoneal, and mesenteric subcentimeter lymph nodes. He had further evaluation with PET/CT on 02/07/2018. It showed a 1.3 cm right lung apical nodule with SUV 4.5, new from the prior CT and suspicious for recurrence. A hypermetabolic superior right hilar lymph node also was consistent with malignancy, SUV 10.6. There were no other areas of significant FDG uptake. He was referred to Dr. Cristian Wong in [place]. He underwent bronchoscopy with EBUS on 03/13/2018. 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 FNA of a station 7 lymph node showed no malignancy. FNA of a station 4R lymph node was insufficient to exclude metastatic disease. He was referred to Dr. Glass and it was recommended that he undergo SBRT to the right upper lobe lesion followed by chemoradiation to the hilar lesion. He completed the SBRT on 04/07/2018 to a total dose of 4800 cGy. He began radiation to the hilar lesion, concurrently with weekly carboplatin/Taxol chemotherapy on 04/09/2018. He had no significant toxicity with his initial chemotherapy infusion, and he received his 2nd infusion of carbo/Taxol on 04/16/2018. His week 3 treatment was delayed 4 days due to a COPD exacerbation, but those symptoms did improve on treatment with Levaquin and prednisone. He was then able to continue his further chemotherapy on schedule. He received his 6th and final infusion of carboplatin/Taxol on 05/18/2018. He completed radiation on 05/27/2018 to a total dose of [address] on 06/30/2018 showed residual spiculated nodule in the right upper lobe measuring 11 mm, slightly smaller from the previous study. Right hilar necrotic lymphadenopathy also was noted to have improved, measuring 12 mm. Previously described pulmonary infiltrates in the right upper lobe were noted to have resolved. There were no other significant changes. Repeat chest CT on 10/05/2018 showed stable spiculated nodule in the right upper lobe measuring 10 x 6 mm. The central left upper lobe nodule measuring 7.5 mm appeared slightly more consolidated. Numerous subcentimeter retroperitoneal lymph nodes also appeared stable. Intermediate hilar lymph nodes also appeared stable. His chest CT on 01/07/2019 showed stable appearance of the right apical spiculated nodule measuring 11 x 7 mm in the left upper lobe noncalcified nodule measuring 7-8 mm. Incompletely visualized retroperitoneal subcentimeter lymph nodes also appeared stable. Overall, there was no evidence of disease progression in the chest. He continued on observation/expectant management. His other medical illnesses include hypertension, COPD, GERD, degenerative arthritis, and peripheral neuropathy. His only prior surgery was a cholecystectomy. He has a 60 year history of smoking, previously in excess of 2 packs of cigarettes daily. He continues to smoke 1 pack per day. INTERIM HISTORY: Repeat CT scans on 07/19/2019 showed spiculated right upper lobe mass with increased pleural thickening, measuring approximately 2.9 x 1.5 CM. There was progression of a noncalcified nodule in the left upper lobe measuring 12 mm. A new noncalcified spiculated nodule was noted in the right hilum measuring 9 mm. The abdomen/pelvis showed stable prominent periaortic and retroperitoneal lymph nodes, the largest measuring approximately 9 mm. Prominent lymph nodes along the mesenteric root appeared unchanged. Enlarged bilateral inguinal lymph nodes were noted to have shown interval progression since 10/05/2018, with the largest right inguinal lymph node measuring 2.1 x 1.9 cm. A restaging PET/CT on 07/24/2019 showed FDG avid right apical pulmonary nodule measuring 1.4 x 2.1 cm, SUV 5.4, consistent with disease progression. A right hilar lymph node showed decreased FDG avidity, SUV 5.4 compared to 10.6 on the previous study. A new left upper lobe nodule measuring 1.2 cm had SUV 3.2, consistent with new metastatic disease. A 9 mm right lower lobe nodule was also noted to be FDG positive and suspicious for metastatic disease. A 2.0 cm right femoral lymph node had elevated SUV of 4.9, suspicious for recurrent lymphoma. Other scattered mesenteric and pelvic nodes appeared unchanged. After review of the CT scans with the radiologist, it appeared that the pulmonary nodules were not accessible for biopsy. He ultimately was referred to Dr. Almendarez for biopsy of the right inguinal lymph node. The procedure was done on 10/12/2019 and pathology did confirm recurrent diffuse large B-cell lymphoma, germinal center subtype. A repeat PET/CT on 11/13/2019 showed unchange in right apical pulmonary nodule with SUV 7.9 compared to 5.4 on the prior study. Mild uptake in a right hilar lymph node was unchanged. A left upper pulmonary nodule had increased in size from 1.2 cm to 1.8 cm with SUV increased from 2.7 to 3.2, and a right lower lobe nodule measured 1.3 cm with SUV 6.9, consistent with progression. There was residual mass in the right inguinal area measuring 5.1 x 5.9 cm with SUV 12.8, strongly consistent with lymphoma. Multiple other FDG positive nodes were present in the right femoral and external iliac territories, including a right external iliac node measuring 6.4 x 4.2 cm with SUV 10.1. There were additional FDG positive nodes in the right common iliac and bilateral periaortic territories, consistent with lymphoma. Prominent mesenteric nodes did not appear significantly changed. Due to his underlying COPD and multiple malignancies, he did not appear to be eligible for autologous stem cell transplant. As such, he began a course of salvage chemotherapy with R-gem ox, cycle 1 day 11/16/2019. He had some vomiting with his cycle 1 day 2 treatment, lasting just 1 day. He otherwise tolerated it well. He continued with cycle 2 on 12/01/2019, with cycle 3 on 12/14/2019, and with cycle 4 on 12/28/2019. Restaging PET/CT on 01/08/2020 showed greatly improved retroperitoneal and pelvic adenopathy. The dominant right inguinal lymph node measured 2.8 x 1.0 cm and was noted to be FDG negative. Other pelvic, retroperitoneal, and mesenteric nodes demonstrated similar improvement. The right apical lung lesion was unchanged and had stable SUV of 7.1. The left upper lobe pulmonary nodule showed improved uptake with SUV 1.5 and was stable in size at 1.7 cm. The central right lower lobe nodule showed decreased SUV to 4.0 from 6.0. Other scattered nodes appeared stable. He is seen for a scheduled visit. He has been feeling pretty good generally. His main complaint is that his breathing has been getting worse for 2 or 3 days after his chemotherapy treatment. The shortness of breath occurs mainly with activity. He does require oxygen. His energy is otherwise fair. His ECOG score is 1. He has good appetite. He has no fever or night sweats. He has had no mouth sores. He has a morning cough which is generally nonproductive. He has not been having chest pain. He recurrently has no GI/ complaints other than frequent urination. He still has significant swelling in his legs. He has pain in his legs and ankles. He has a little bit of numbness in his fingers. Medications: Albuterol Sulfate Nebulization solution Inhalation, AmLODIPine Besylate 1 (10 mg) Tablet Oral daily, Lisinopril 0.5 Tablet (of 40 mg) Oral daily, Omeprazole 1 (20 mg) Capsule Delayed Release Oral daily, Rosuvastatin Calcium 1 Tablet (of 5 mg) Tablet Oral daily, Spiriva Respimat Aerosol, solution Inhalation Allergies: Seafood (crab legs) Review of Systems: Constitutional - His energy is pretty good. He does light work at home. His appetite is good and his weight is up 5 pounds. No fever, chills, hot flashes, or night sweats. ECOG score is 1, ENMT - No sinus congestion/drainage. No mouth sores. No sore throat or difficulty swallowing, Hematologic/Lymphatic - He bruises easily, Respiratory - He had some shortness of breath after his last chemo treatment. He uses oxygen and breathing treatments as needed. He has a dry cough in the mornings. No pleuritic pain or hemoptysis, Cardiovascular - No angina pain. No palpitations, Gastrointestinal - No nausea or vomiting. No heartburn or acid reflux. No diarrhea or constipation. No blood in the stool or black stools, Genitourinary (M) - No dysuria or hematuria. He has urinary frequency, both during the day and at night. No urgency or incontinence, Musculoskeletal - He has some pain and stiffness in his legs and ankles, Integumentary - No skin complications, Neurologic - No headache or dizziness. No numbness/paresthesias or other focal neurologic symptoms, Psychiatric - No anxiety or depression. No insomnia. Vital Signs: Performed on Jan 11, 2020 09:48 Height - 71.00 in Weight - 207.6 lbs (HIGH) BSA - 2.14 sq.m BMI - 28.95 Temperature - 97.7 F (LOW) Pulse - 87 /min Respiration - 20 /min BP - 122/71 mm(hg) O2 Sat - 91 % (LOW) Pain - 0 Physical Examination: Constitutional - He looks pretty good generally, Eyes - Sclerae nonicteric. Conjunctivae clear, ENMT - No lesions noted in the oral cavity, Hematologic/Lymphatic - No cervical, clavicular, or axillary adenopathy noted, Respiratory - Lungs sound clear with diminished air movement bilaterally, Cardiovascular - Heart rhythm is regular. There is no murmur, gallop, or rub noted, Abdomen - Soft. Liver and spleen are not enlarged. There is no abdominal mass or ascites noted. There is no residual inguinal adenopath, Extremities - There is 2 to 3+ lower extremity edema, Neurologic - No focal neurologic deficits noted. Lab/Imaging: CBC shows hemoglobin 11.5 g, white blood cell count 8200, and platelet count 175,000. Comprehensive metabolic profile is unremarkable except for slightly elevated alkaline phosphatase at 151/130 IU/L. Impression: 1. Patient with chronic leukocytic leukemia, initially diagnosed in 2001. He initially had early stage disease and he was followed on observation. In January 2016 he presented with extensive and in some areas bulky lymphadenopathy, and he was confirmed by lymph node biopsy to have transformed diffuse large B cell lymphoma. By clinical evaluation, his disease was stage IIIA. His international prognostic index score was 2, intermediate risk. 2. He was treated with 6 cycles of R-CHOP chemotherapy from 02/14/2016 thru 06/05/2016. He experienced treatment-related fatigue and myelosuppression, including grade 2 anemia and grade 4 neutropenia. He also had some worsening of peripheral neuropathy, mainly in the left hand, where it was grade 3. Restaging CT scans on 07/01/2016 showed significant improvement in the lymphadenopathy, though not complete resolution. Three noncalcified 5 mm pulmonary nodules in the right lung were noted to be stable. 3. His follow-up chest CT in August 2016 showed enlargement of a right lower lobe pulmonary nodule. He underwent right lower lobectomy on 10/28/2016. Pathology confirmed grade 2/4 infiltrating adenocarcinoma, stage IA (T1a, N0, M0). His other medical illnesses include: 2. COPD. 3. Hypertension. 4. GERD. 5. Peripheral neuropathy. This appears to be idiopathic. 6. Nicotine dependence (cigarettes). During followup his initial surveillance CT scans had shown no evidence of recurrence of the lung cancer or lymphoma. His surveillance CT scans in January 2018 showed slight increase in size of a right apical pulmonary nodule measuring 14 x 8 mm and interval development of right hilar necrotic lymphadenopathy measuring 2.4 x 1.7 cm. On further evaluation with PET/CT, both lesions were FDG positive, suspicious for a new non-small cell lung cancer. He underwent bronchoscopy with EBUS on 03/13/2018. The right apical lesion was not accessible. 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 FNA of a station 7 lymph node showed no malignancy. As such, he had a new confirmed non-small cell carcinoma involving the upper lobe of the right lung. Based on the presence of a second tumor nodule within the right upper lobe, his disease was stage IIB (T3, N0, M0). He was given SBRT to the right upper lobe lesion, completed on 04/07/2018 to a total dose of 4800 cGy. He then began radiation to the right hilar lesion, currently with weekly carboplatin/Taxol chemotherapy on 04/09/2018. He completed the first 2 weekly chemotherapy infusions with no significant toxicity. His week 3 treatment was delayed 4 days due to symptoms of COPD exacerbation, but those did improve after treatment with Levaquin and prednisone. He was then able to continue the remainder of his chemotherapy on schedule. He completed his sixth and final infusion of carboplatin/Taxol on 05/18/2018. He completed radiation on 05/27/2018, total dose 1600 cGy. Overall, he tolerated his treatment well. He appeared to have significant response by follow-up chest CT. During follow-up he had initially remained stable clinically with no obvious progression of the lung cancer. However, his repeat CT scans July 2019 showed some progression of lymphadenopathy as well as increased pleural thickening associated with the residual right upper lobe mass. His restaging PET/CT on 07/24/2019 showed progression of the right apical pulmonary nodule as well as suspected bilateral metastatic pulmonary nodules and an FDG avid right femoral lymph node which appeared suspicious for recurrent lymphoma. The pulmonary nodules did not appear to be accessible for biopsy. Right inguinal lymph node biopsy on 10/12/2019 confirmed recurrent diffuse large B-cell lymphoma, germinal center subtype. Restaging PET/CT on 11/13/2019 showed significant progression of lymphoma in the right inguinal/pelvic area. There was also progression of the right apical pulmonary nodule and an additional left upper lobe and right lower lobe pulmonary nodules. The pulmonary nodules had been deemed inaccessible for biopsy. On 11/16/2019 he began cycle 1 of salvage chemotherapy with R-gem ox. He had nausea/vomiting following his day 2 treatment, but it had resolved by the next day. He otherwise tolerated the chemotherapy well. He was then able to continue treatment at 2-week intervals. He began cycle 4 on 12/28/2019. His restaging PET/CT on 01/08/2020 showed significant improvement in the retroperitoneal and pelvic lymphadenopathy. The pulmonary nodules, which I have presumed to be non-small cell lung cancer, remained stable or showed slight improvement. Plan: He will proceed with cycle 5 of R-gem ox. The dosages will remain the same. He returns in 2 weeks. Given the excellent response he has had by PET/CT, I will likely stop treatment after 6 cycles and then re-address the issue of his non-small cell lung cancer. In the meantime, I am going to restart furosemide at 40 mg daily, as he is having significant fluid retention. Signed By: Jus Castano M.D. <<Signature on File>>
[2020-01-12] MEDS: dextrose 5% 250 ML 75 ML IV (08:58)
[2020-01-12] MEDS: pegfilgrastim 6 mg/0.6 mL Kit (onpro) SUBCUT (12:15)
[2020-01-24 16:17] LABS: Basophils # 0.1 10^3/uL (0.0-0.1); Basophils % 0.8 %; Eosinophils # 0.1 10^3/uL (0.0-0.8); Eosinophils % 0.8 %; Hematocrit 37.4 % (42.0-52.0); Hemoglobin 11.6 g/dL (11.7-16.6); Lymphocytes # 0.7 10^3/uL (0.8-4.8); Lymphocytes % 7.2 %; Mean Corpuscular Hemoglobin 29.6 pg (28.0-34.0); Mean Corpuscular Volume 95.4 fL (80-94); Mean Platelet Volume 10.6 fL (7.4-10.4); Monocytes # 1.1 10^3/uL (0.2-0.9); Monocytes % 11.3 %; Neutrophils # 7.5 10^3/uL (1.8-7.7); Neutrophils % 77.9 %; Nucleated Red Blood Cells % 0 %; Platelet Count 210 10^3/cmm (130-400); Red Blood Count 3.92 10^6/uL (4.1-5.3); Red Cell Distribution Width 17.1 % (12.1-15.1); White Blood Count 9.6 10^3/uL (4.0-10.0)
[2020-01-24 17:41] LABS: Alanine Aminotransferase 17 U/L (0-41); Albumin Level 4.2 g/dL (3.5-5.2); Alkaline Phosphatase 161 IU/L (40-130); Aspartate Amino Transferase 21 U/L (0-40); Blood Urea Nitrogen 12 mg/dL (8-23); Calcium 9.8 mg/dL (8.5-10.5); Carbon Dioxide 36 mmol/L (22-29); Chloride 98 mmol/L (98-107); Globulin 2.9 g/dL (1.3-4.6); Glucose 113 mg/dL (65-115); Lactate Dehydrogenase 242 U/L (135-225); Osmolality Calculated 291 mOsm/kg (285-295); Sodium 142 mmol/L (136-145); Total Bilirubin 0.4 mg/dL (0.15-1.2); Total Protein 7.1 g/dL (6.6-8.7)
[2020-01-25] MEDS: acetaminophen 325 mg Tablet 650 MG PO (10:15)
[2020-01-25] MEDS: sodium chloride 0.9% 250 ML 75 ML IV (10:25)
[2020-01-26] MEDS: alteplase 1 mg/mL SDV 2 mL 2 MG INTRACATH (08:38)
[2020-01-26] MEDS: dextrose 5% 250 ML 75 ML IV (08:58)
--- NOTE | 2020-01-26 09:31 | ONC FU_ITS ---
[facility] Patient Note Patient: Armando Zurita Unit #: [id number]: 1945 Dictated By: Nohelia PringleDate of Visit: Jan 25, 2020 Onc MED Follow-Up/Prog Note Chief Complaint: Chronic lymphocytic leukemia/transformed lymphoma and lung cancer. 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 He also has been treated for nonsmall cell cancer of the right lung. He had known chronic lymphocytic leukemia, initially diagnosed in 2001. He had mostly been followed through the [place]. He had early stage disease, and he had been monitored on observation. Dr Castano had seen him initially on 01/09/2016 because of increasing lymphocytosis and peripheral lymphadenopathy. The most significant area of adenopathy was in the right side of the neck. A contrast-enhanced neck CT on 01/01/2016 showed extensive multilevel cervical lymphadenopathy and to a lesser extent mediastinal and hilar lymphadenopathy. The largest interventional lymph node appeared to be a right anterior cervical node at level 3 measuring about 5.7 cm in diameter. It was associated with displacement of the right parotid gland and near complete effacement of the right internal jugular vein. A left-sided level 3 cervical node measured 3.1 cm and a left-sided level 4 supraclavicular lymph node measured 3.6 cm. His subsequent evaluation included staging CT scans of the chest/abdomen/pelvis on 01/30/2016. These showed significant, generalized lymphadenopathy and mild splenomegaly. Also noted were subcentimeter pulmonary nodules of undetermined significance. He underwent incisional biopsy of the right neck mass on 01/31/2016. Pathology was consistent with diffuse large B-cell lymphoma, germinal center subtype with high-grade features. Bone marrow aspiration/biopsy on 02/09/2016 did show evidence of chronic lymphocytic leukemia, but no evidence of involvement with the diffuse large B-cell lymphoma. He initiated a course of treatment with R-CHOP chemotherapy on 02/14/2016. His baseline echocardiogram showed adequate LV function with estimated ejection fraction at 55%. His day 1 treatment was complicated by a hypersensitivity reaction to the rituximab, significant enough that he did require treatment with epinephrine. As such, the rituximab infusion was not completed, but he was able to return the following day and complete the CHOP portion of the treatment. The rituximab was re-introduced with the second cycle, and with premedication he tolerated it well. He completed his 6th cycle of treatment on 06/05/2016. Restaging CT scan of the chest, abdomen, and pelvis on 07/01/2016 showed moderate improvement in lymphadenopathy throughout the chest, abdomen and pelvis since the prior study. There were no new lymph nodes or progression of adenopathy noted. Chest CT performed on 09/03/2016 showed enlarging superior segment right lower lobe lung nodule suspicious for primary lung neoplasm. On 10/28/2016 he underwent right lower lobectomy. Pathology showed grade 2/4 infiltrating adenocarcinoma measuring 1.5 x 1.4 cm. The bronchial margin of resection was free by 4 cm. The pleural surface was free by 0.2 cm. There was no involvement in 4 hilar lymph nodes. His pathologic stage thus was IA (T1a, N0, M0). Surveillance CT scans of the chest, abdomen, and pelvis on 05/22/2017 showed a spiculated pleural-based nodule in the right upper lobe measuring 8 mm and an additional nodule measuring 6 mm in the medial right upper lobe. Both of these appear to be new from previous studies. Also noted were new tree-in-bud airspace abnormalities in the right upper lobe and right middle lobe and there was a possible 3 mm nodule in the left lower lobe. Findings were felt to be consistent either with infectious process or early metastatic disease. Also noted was a slight increase in the size of mediastinal and hilar lymph nodes compared to August 2016, with the largest node at the left hilum measuring 12 mm. He continued observation/expectant management. A repeat chest CT on 08/22/2017 showed moderate improvement in the aeration throughout both lungs compared to the study from May. A 7 mm right upper lobe subpleural nodule appeared stable. There was near complete resolution of the parenchymal nodule in the right upper lobe. There was a small persistent right pleural effusion. He continued on observation/expectant management. His surveillance CT scans of the chest, abdomen, and pelvis on 01/30/2018 showed increase in the right apical spiculated pulmonary nodule, measuring 14 x 8 mm compared to 7 mm on the prior study. There was interval development of necrotic right hilar lymphadenopathy measuring 2.4 x 1.7 cm. A 9 mm left infrahilar lymph node and a prevascular 12 mm lymph node appeared unchanged. There were new bilateral lower lung zone tree-in-bud nodular opacities, favoring infection or postinflammatory change. Retroperitoneal and inguinal lymph nodes measuring 1-2 cm appeared unchanged, as did additional inguinal, peritoneal, and mesenteric subcentimeter lymph nodes. He had further evaluation with PET/CT on 02/07/2018. It showed a 1.3 cm right lung apical nodule with SUV 4.5, new from the prior CT and suspicious for recurrence. A hypermetabolic superior right hilar lymph node also was consistent with malignancy, SUV 10.6. There were no other areas of significant FDG uptake. He was referred to Dr. Cristian Wong in [place]. He underwent bronchoscopy with EBUS on 03/13/2018. 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 FNA of a station 7 lymph node showed no malignancy. FNA of a station 4R lymph node was insufficient to exclude metastatic disease. He was referred to Dr. Glass and it was recommended that he undergo SBRT to the right upper lobe lesion followed by chemoradiation to the hilar lesion. He completed the SBRT on 04/07/2018 to a total dose of 4800 cGy. He began radiation to the hilar lesion, concurrently with weekly carboplatin/Taxol chemotherapy on 04/09/2018. He had no significant toxicity with his initial chemotherapy infusion, and he received his 2nd infusion of carbo/Taxol on 04/16/2018. His week 3 treatment was delayed 4 days due to a COPD exacerbation, but those symptoms did improve on treatment with Levaquin and prednisone. He was then able to continue his further chemotherapy on schedule. He received his 6th and final infusion of carboplatin/Taxol on 05/18/2018. He completed radiation on 05/27/2018 to a total dose of [address] on 06/30/2018 showed residual spiculated nodule in the right upper lobe measuring 11 mm, slightly smaller from the previous study. Right hilar necrotic lymphadenopathy also was noted to have improved, measuring 12 mm. Previously described pulmonary infiltrates in the right upper lobe were noted to have resolved. There were no other significant changes. Repeat chest CT on 10/05/2018 showed stable spiculated nodule in the right upper lobe measuring 10 x 6 mm. The central left upper lobe nodule measuring 7.5 mm appeared slightly more consolidated. Numerous subcentimeter retroperitoneal lymph nodes also appeared stable. Intermediate hilar lymph nodes also appeared stable. His chest CT on 01/07/2019 showed stable appearance of the right apical spiculated nodule measuring 11 x 7 mm in the left upper lobe noncalcified nodule measuring 7-8 mm. Incompletely visualized retroperitoneal subcentimeter lymph nodes also appeared stable. Overall, there was no evidence of disease progression in the chest. He continued on observation/expectant management. His other medical illnesses include hypertension, COPD, GERD, degenerative arthritis, and peripheral neuropathy. His only prior surgery was a cholecystectomy. He has a 60 year history of smoking, previously in excess of 2 packs of cigarettes daily. He continues to smoke 1 pack per day. INTERIM HISTORY: Repeat CT scans on 07/19/2019 showed spiculated right upper lobe mass with increased pleural thickening, measuring approximately 2.9 x 1.5 CM. There was progression of a noncalcified nodule in the left upper lobe measuring 12 mm. A new noncalcified spiculated nodule was noted in the right hilum measuring 9 mm. The abdomen/pelvis showed stable prominent periaortic and retroperitoneal lymph nodes, the largest measuring approximately 9 mm. Prominent lymph nodes along the mesenteric root appeared unchanged. Enlarged bilateral inguinal lymph nodes were noted to have shown interval progression since 10/05/2018, with the largest right inguinal lymph node measuring 2.1 x 1.9 cm. A restaging PET/CT on 07/24/2019 showed FDG avid right apical pulmonary nodule measuring 1.4 x 2.1 cm, SUV 5.4, consistent with disease progression. A right hilar lymph node showed decreased FDG avidity, SUV 5.4 compared to 10.6 on the previous study. A new left upper lobe nodule measuring 1.2 cm had SUV 3.2, consistent with new metastatic disease. A 9 mm right lower lobe nodule was also noted to be FDG positive and suspicious for metastatic disease. A 2.0 cm right femoral lymph node had elevated SUV of 4.9, suspicious for recurrent lymphoma. Other scattered mesenteric and pelvic nodes appeared unchanged. After review of the CT scans with the radiologist, it appeared that the pulmonary nodules were not accessible for biopsy. He ultimately was referred to Dr. Almendarez for biopsy of the right inguinal lymph node. The procedure was done on 10/12/2019 and pathology did confirm recurrent diffuse large B-cell lymphoma, germinal center subtype. A repeat PET/CT on 11/13/2019 showed change in right apical pulmonary nodule with SUV 7.9 compared to 5.4 on the prior study. Mild uptake in a right hilar lymph node was unchanged. A left upper pulmonary nodule had increased in size from 1.2 cm to 1.8 cm with SUV increased from 2.7 to 3.2, and a right lower lobe nodule measured 1.3 cm with SUV 6.9, consistent with progression. There was residual mass in the right inguinal area measuring 5.1 x 5.9 cm with SUV 12.8, strongly consistent with lymphoma. Multiple other FDG positive nodes were present in the right femoral and external iliac territories, including a right external iliac node measuring 6.4 x 4.2 cm with SUV 10.1. There were additional FDG positive nodes in the right common iliac and bilateral periaortic territories, consistent with lymphoma. Prominent mesenteric nodes did not appear significantly changed. Due to his underlying COPD and multiple malignancies, he did not appear to be eligible for autologous stem cell transplant. As such, he began a course of salvage chemotherapy with R-gem ox, cycle 1 day 11/16/2019. He had some vomiting with his cycle 1 day 2 treatment, lasting just 1 day. He otherwise tolerated it well. He continued with cycle 2 on 12/01/2019, with cycle 3 on 12/14/2019, and with cycle 4 on 12/28/2019. Restaging PET/CT on 01/08/2020 showed greatly improved retroperitoneal and pelvic adenopathy. The dominant right inguinal lymph node measured 2.8 x 1.0 cm and was noted to be FDG negative. Other pelvic, retroperitoneal, and mesenteric nodes demonstrated similar improvement. The right apical lung lesion was unchanged and had stable SUV of 7.1. The left upper lobe pulmonary nodule showed improved uptake with SUV 1.5 and was stable in size at 1.7 cm. The central right lower lobe nodule showed decreased SUV to 4.0 from 6.0. Other scattered nodes appeared stable. Mr Zurita is here today for a scheduled visit. He is due for cycle 6 Gemzar/oxaliplatin. This will be his last planned treatment due to his significant response per the PET/CT on 01/08/2020. He has no new concerns today. He has been feeling pretty good generally. He has been trying to get out and do more, but the weather has impaired that at times. He denies any nausea or vomiting. He states his bowels are normal for him. He denies any changes in his breathing. He does have a little tingling in my fingers when I touch something cold, but it goes away real quick . His swelling is better. He denies any mouth sores, sore throat or difficulty swallowing. He denies any cough or hemoptysis. His appetite is good overall. His ECOG is 1. Past Medical History: Chronic obstructive pulmonary disease Degenerative arthritis Gastroesophageal reflux disease Hypertension Peripheral neuropathy Past Surgical History: Cataract excision Cholecystectomy Left sided port placement in 2016 - Right Lower Lobectomy in 2016 Bone marrow aspiration/biopsy in 2016 Incisional biopsy right neck mass in 2016 Allergies: Seafood (crab legs) Medications: Albuterol Sulfate Nebulization solution Inhalation Lasix 1 Tablet (of 40 mg) Oral daily Lisinopril 0.5 Tablet (of 40 mg) Oral daily Omeprazole 1 (20 mg) Capsule Delayed Release Oral daily Rosuvastatin Calcium 1 Tablet (of 5 mg) Tablet Oral daily Spiriva Respimat Aerosol, solution Inhalation Family History: Mr. Zurita's mother at age 75: lupus, and stroke. Mr. Zurita's father at age 76: [place]. Mr. Zurita has 1 brother who is : congestive heart failure. Father of heart attack age 76. His mother had lupus and of stroke at age 75. A brother at age 77 had a sudden following abdominal surgery. Social History: Mr. Zurita is and he is retired. He is a daily smoker who has smoked 1.0 pack/day for 0 years. He has no history of drinking. Mr. Zurita reports the following support systems: lives with spouse, significant other, family, or friends, lives in own house, supportive family/friends willing to assist with needs, and adequate transportation available for expected visits. His diet consists of regular meals. He indicates his activity level as: daily activities. He has been smoking for 60 years, previously in excess of 2 packs of cigarettes daily. He is currently smoking 1 pack per day. In the past he has tried nicotine patches, but unsuccessfully. He has had some alcohol use in the past, but it was never heavy. He has had no alcohol use for more than 6 years. Review Of Symptoms: Constitutional Denies fevers, chills, night sweats. Mild fatigue. Allergic/Immunologic No reactions. Eyes Denies significant visual changes. No diplopia. No amaurosis. ENMT Denies changes in hearing, sore throat, mouth sores, difficulty or changes in swallowing ability. Sinus drainage better this week. Endocrine Denies hot flashes or night sweats. Hematologic/Lymphatic The patient denies any tender or palpable lymph nodes. Respiratory no change in breathing Cardiovascular Denies anginal chest pain. Gastrointestinal Denies nausea, vomiting, diarrhea, heartburn, or constipation. Genitourinary (M) Denies hematuria, dysuria, increased frequency, urgency, hesitancy or incontinence. Musculoskeletal Denies joint pain, swelling or redness. No decreased range of motion. Right leg with lymphedema presumably due to right inguinal adenopathy. No worse but no better. Integumentary Denies chronic rashes, inflammation, ulcerations or skin changes. Neurologic Denies headache. Psychiatric Denies insomnia, depression, anxiety. Vital Signs: Performed on Jan 25, 2020 09:48 Height - 71.00 in Weight - 202.8 lbs (LOW) BSA - 2.12 sq.m BMI - 28.29 Temperature - 98.0 F (LOW) Pulse - 70 /min Respiration - 20 /min BP - 123/60 mm(hg) O2 Sat - 92 % (LOW) Pain - 0,1 - No physically strenuous activity, but ambulatory and able to carry out light or sedentary work (e.g. office work, light house work). (ECOG) Physical Examination: Constitutional Alert, oriented, no acute distress. Skin pale/pink, warm and dry. Head Normocephalic; atraumatic. Eyes Conjunctivae and sclerae are clear and without icterus. Pupils are reactive and equal. ENMT Sinuses are nontender. No oral exudates, ulcers, masses, thrush or mucositis. Oropharynx clear. Tongue normal. Neck Supple without masses or thyromegaly. No jugular venous distension. Hematologic/Lymphatic No petechiae or purpura. No tender or palpable lymph nodes in the cervical, supraclavicular areas. Respiratory Lungs are clear to auscultation without rhonchi or wheezing. Cardiovascular Regular rate and rhythm of heart without murmurs,clicks, gallops or rubs. Chest Chest is symmetric without chest wall deformities. Left venous access device insertion site is unremarkable.. Abdomen Non-tender, non-distended, no masses, ascites. Back/Spine Non-tender to palpation. Extremities Right leg is swollen at 2 + currently. Musculoskeletal normal range of motion without obvious weakness. Integumentary No rashes or lesions. Neurologic No sensory or motor deficits, normal cerebellar function, normal-slow- gait. Psychiatric Alert and oriented times three. Coherent speech. Verbalizes understanding of our discussions today. Laboratory:Test performed on Jan 24, 2020 12:30 LDH (Total) 242 U/L Sodium 142 mmol/L Potassium 4.0 mmol/L Chloride 98 mmol/L CO2 36 mmol/L Anion Gap 12.0 BUN 12 mg/dL Creatinine 1.0 mg/dL Cr Clearance (Est) 84.2500 mL/min Glucose 113 mg/dL Calcium 9.8 mg/dL Protein, Total 7.1 g/dL Albumin 4.2 g/dL Globulin 2.9 g/dL Bilirubin, Total 0.4 mg/dL ALT (SGPT) 17 U/L AST (SGOT) 21 U/L Alkaline Phosphatase 161 IU/L WBC 9.6 10 3/uL RBC 3.92 10 6/uL HGB 11.6 g/dL HCT 37.4 % MCV 95.4 fL MCH 29.6 pg MCHC 31.0 g/dL RDW 17.1 % Platelet Count 210 10 3/cmm MPV 10.6 fL Neutrophils 7.5 10 3/uL Lymphocytes 0.7 10 3/uL Monocytes 1.1 10 3/uL Eosinophils 0.1 10 3/uL Basophils 0.1 10 3/uL Neutrophil % 77.9 % Lymphocyte % 7.2 % Monocyte % 11.3 % Eosinophil % 0.8 % Basophils % 0.8 % Impression: 1. Patient with chronic leukocytic leukemia, initially diagnosed in 2001. He initially had early stage disease and he was followed on observation. In January 2016 he presented with extensive and in some areas bulky lymphadenopathy, and he was confirmed by lymph node biopsy to have transformed diffuse large B cell lymphoma. By clinical evaluation, his disease was stage IIIA. His international prognostic index score was 2, intermediate risk. 2. He was treated with 6 cycles of R-CHOP chemotherapy from 02/14/2016 thru 06/05/2016. He experienced treatment-related fatigue and myelosuppression, including grade 2 anemia and grade 4 neutropenia. He also had some worsening of peripheral neuropathy, mainly in the left hand, where it was grade 3. Restaging CT scans on 07/01/2016 showed significant improvement in the lymphadenopathy, though not complete resolution. Three noncalcified 5 mm pulmonary nodules in the right lung were noted to be stable. 3. His follow-up chest CT in August 2016 showed enlargement of a right lower lobe pulmonary nodule. He underwent right lower lobectomy on 10/28/2016. Pathology confirmed grade 2/4 infiltrating adenocarcinoma, stage IA (T1a, N0, M0). His other medical illnesses include: 2. COPD. 3. Hypertension. 4. GERD. 5. Peripheral neuropathy. This appears to be idiopathic. 6. Nicotine dependence (cigarettes). During followup his initial surveillance CT scans had shown no evidence of recurrence of the lung cancer or lymphoma. His surveillance CT scans in January 2018 showed slight increase in size of a right apical pulmonary nodule measuring 14 x 8 mm and interval development of right hilar necrotic lymphadenopathy measuring 2.4 x 1.7 cm. On further evaluation with PET/CT, both lesions were FDG positive, suspicious for a new non-small cell lung cancer. He underwent bronchoscopy with EBUS on 03/13/2018. The right apical lesion was not accessible. 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 FNA of a station 7 lymph node showed no malignancy. As such, he had a new confirmed non-small cell carcinoma involving the upper lobe of the right lung. Based on the presence of a second tumor nodule within the right upper lobe, his disease was stage IIB (T3, N0, M0). He was given SBRT to the right upper lobe lesion, completed on 04/07/2018 to a total dose of 4800 cGy. He then began radiation to the right hilar lesion, currently with weekly carboplatin/Taxol chemotherapy on 04/09/2018. He completed the first 2 weekly chemotherapy infusions with no significant toxicity. His week 3 treatment was delayed 4 days due to symptoms of COPD exacerbation, but those did improve after treatment with Levaquin and prednisone. He was then able to continue the remainder of his chemotherapy on schedule. He completed his sixth and final infusion of carboplatin/Taxol on 05/18/2018. He completed radiation on 05/27/2018, total dose 1600 cGy. Overall, he tolerated his treatment well. He appeared to have significant response by follow-up chest CT. During follow-up he had initially remained stable clinically with no obvious progression of the lung cancer. However, his repeat CT scans July 2019 showed some progression of lymphadenopathy as well as increased pleural thickening associated with the residual right upper lobe mass. His restaging PET/CT on 07/24/2019 showed progression of the right apical pulmonary nodule as well as suspected bilateral metastatic pulmonary nodules and an FDG avid right femoral lymph node which appeared suspicious for recurrent lymphoma. The pulmonary nodules did not appear to be accessible for biopsy. Right inguinal lymph node biopsy on 10/12/2019 confirmed recurrent diffuse large B-cell lymphoma, germinal center subtype. Restaging PET/CT on 11/13/2019 showed significant progression of lymphoma in the right inguinal/pelvic area. There was also progression of the right apical pulmonary nodule and an additional left upper lobe and right lower lobe pulmonary nodules. The pulmonary nodules had been deemed inaccessible for biopsy. On 11/16/2019 he began cycle 1 of salvage chemotherapy with R-gem ox. He had nausea/vomiting following his day 2 treatment, but it had resolved by the next day. He otherwise tolerated the chemotherapy well. He was then able to continue treatment at 2-week intervals. He began cycle 4 on 12/28/2019. His restaging PET/CT on 01/08/2020 showed significant improvement in the retroperitoneal and pelvic lymphadenopathy. The pulmonary nodules, which have been presumed to be non-small cell lung cancer, remained stable or showed slight improvement. Plan: 1. proceed with cycle 6 of R-gem ox. 2. Per Dr Castano's last office note; Given the excellent response he has had by PET/CT, I will likely stop treatment after 6 cycles and then re-address the issue of his non-small cell lung cancer . 3. Continue furosemide 40 mg as his edema is better. 4. Labs from January 24, 2020 were reviewed in detail and a copy was given to Mr. Zurita. WBC 9.6, hemoglobin 11.6, platelets 210,000 ANC is 7500. Creatinine 1.0 LFTs are normal LDH is 242. 5. We will plan to see him back in 4 weeks for follow-up with Dr. Castano. This will complete his current treatment plan after his treatment this week. 6. I have asked for CBC CMP LDH at his follow-up visit in 4 weeks. There are no interim labs planned but could be obtained if symptoms arise. 7. Mr. Zurita was instructed to contact us in the interim should questions or problems arise. Signed By: Nohelia Pringle-, CNP Jus Castano MD <<Signature on File>>
[2020-01-26] MEDS: pegfilgrastim 6 mg/0.6 mL Kit (onpro) SUBCUT (15:42)
== END 2020-02-08 23:59 | disposition home or self-care (01) ==
LOC: ONCMED 05:48
PROVIDERS: Internal Medicine Medical Oncology; Family Provider Emergency Medicine Emergency Medical Services; PCP Emergency Medicine Emergency Medical Services; Visit Provider Nurse Practitioner
DX: Z51.12 Encounter for antineoplastic immunotherapy (principal); Z51.11 Encounter for antineoplastic chemotherapy; C34.11 Malignant neoplasm of upper lobe, right bronchus or lung; D70.1 Agranulocytosis secondary to cancer chemotherapy; T45.1X5A Adverse effect of antineoplastic and immunosuppressive drugs, initial encounter; C83.38 Diffuse large B-cell lymphoma, lymph nodes of multiple sites; R60.0 Localized edema; I10 Essential (primary) hypertension; J44.9 Chronic obstructive pulmonary disease, unspecified; K21.9 Gastro-esophageal reflux disease without esophagitis; G60.9 Hereditary and idiopathic neuropathy, unspecified; M19.90 Unspecified osteoarthritis, unspecified site; F17.210 Nicotine dependence, cigarettes, uncomplicated; Z79.899 Other long term (current) drug therapy; Z90.2 Acquired absence of lung [part of]; Z92.3 Personal history of irradiation
CPT/HCPCS: 36593; 80053; 83615; 85025; 96367; 96372; 96375; 96413; 96415; 96417; 99214; J1100; J1200; J1453; J2469; J2505; J2930; J2997; J3490; J7040; J7050; J9201; J9263; J9312

== ENCOUNTER 2020-02-22 06:59 | Outpatient (RCR) | payer OTHER, SELFPAY ==
[2020-02-21 17:05] LABS: Basophils # 0.1 10^3/uL (0.0-0.1); Basophils % 1.3 %; Eosinophils # 0.3 10^3/uL (0.0-0.8); Eosinophils % 4.4 %; Hematocrit 41.1 % (42.0-52.0); Hemoglobin 12.8 g/dL (11.7-16.6); Lymphocytes # 2.7 10^3/uL (0.8-4.8); Lymphocytes % 34.5 %; Mean Corpuscular HGB Conc 31.1 g/dL (30.0-36.0); Mean Corpuscular Hemoglobin 30.2 pg (28.0-34.0); Mean Corpuscular Volume 96.9 fL (80-94); Mean Platelet Volume 10.1 fL (7.4-10.4); Monocytes # 1.1 10^3/uL (0.2-0.9); Monocytes % 14.1 %; Neutrophils # 3.5 10^3/uL (1.8-7.7); Neutrophils % 45.3 %; Nucleated Red Blood Cells % 0 %; Platelet Count 281 10^3/cmm (130-400); Red Blood Count 4.24 10^6/uL (4.1-5.3); Red Cell Distribution Width 15.2 % (12.1-15.1); White Blood Count 7.7 10^3/uL (4.0-10.0)
[2020-02-21 17:35] LABS: Alanine Aminotransferase 12 U/L (0-41); Albumin Level 4.1 g/dL (3.5-5.2); Alkaline Phosphatase 104 IU/L (40-130); Anion Gap 16.5 (5-19); Aspartate Amino Transferase 19 U/L (0-40); Blood Urea Nitrogen 6 mg/dL (8-23); Calcium 9.7 mg/dL (8.5-10.5); Carbon Dioxide 30 mmol/L (22-29); Chloride 98 mmol/L (98-107); Globulin 2.6 g/dL (1.3-4.6); Glucose 109 mg/dL (65-115); Lactate Dehydrogenase 232 U/L (135-225); Osmolality Calculated 288 mOsm/kg (285-295); Potassium 3.5 mmol/L (3.5-5.1); Sodium 141 mmol/L (136-145); Total Bilirubin 0.3 mg/dL (0.15-1.2); Total Protein 6.7 g/dL (6.6-8.7)
--- NOTE | 2020-02-23 10:04 | ONC FU_ITS ---
Dr. Castano Patient Follow-Up Note Patient: Armando Zurita Unit #: [id number]: [id number] Dicatated By: Jus Castano M.D.Date of Visit:Feb 22, 2020 Onc Med Follow-up/Prog Note Chief Complaint: Chronic lymphocytic leukemia/transformed lymphoma and lung cancer. 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 He also has been treated for nonsmall cell cancer of the right lung. He had known chronic lymphocytic leukemia, initially diagnosed in 2001. He had mostly been followed through the [place]. He had early stage disease, and he had been monitored on observation. I had seen him initially on 01/09/2016 because of increasing lymphocytosis and peripheral lymphadenopathy. The most significant area of adenopathy was in the right side of the neck. A contrast-enhanced neck CT on 01/01/2016 showed extensive multilevel cervical lymphadenopathy and to a lesser extent mediastinal and hilar lymphadenopathy. The largest interventional lymph node appeared to be a right anterior cervical node at level 3 measuring about 5.7 cm in diameter. It was associated with displacement of the right parotid gland and near complete effacement of the right internal jugular vein. A left-sided level 3 cervical node measured 3.1 cm and a left-sided level 4 supraclavicular lymph node measured 3.6 cm. His subsequent evaluation included staging CT scans of the chest/abdomen/pelvis on 01/30/2016. These showed significant, generalized lymphadenopathy and mild splenomegaly. Also noted were subcentimeter pulmonary nodules of undetermined significance. He underwent incisional biopsy of the right neck mass on 01/31/2016. Pathology was consistent with diffuse large B-cell lymphoma, germinal center subtype with high-grade features. Bone marrow aspiration/biopsy on 02/09/2016 did show evidence of chronic lymphocytic leukemia, but no evidence of involvement with the diffuse large B-cell lymphoma. He initiated a course of treatment with R-CHOP chemotherapy on 02/14/2016. His baseline echocardiogram showed adequate LV function with estimated ejection fraction at 55%. His day 1 treatment was complicated by a hypersensitivity reaction to the rituximab, significant enough that he did require treatment with epinephrine. As such, the rituximab infusion was not completed, but he was able to return the following day and complete the CHOP portion of the treatment. The rituximab was re-introduced with the second cycle, and with premedication he tolerated it well. He completed his 6th cycle of treatment on 06/05/2016. Restaging CT scan of the chest, abdomen, and pelvis on 07/01/2016 showed moderate improvement in lymphadenopathy throughout the chest, abdomen and pelvis since the prior study. There were no new lymph nodes or progression of adenopathy noted. Chest CT performed on 09/03/2016 showed enlarging superior segment right lower lobe lung nodule suspicious for primary lung neoplasm. On 10/28/2016 he underwent right lower lobectomy. Pathology showed grade 2/4 infiltrating adenocarcinoma measuring 1.5 x 1.4 cm. The bronchial margin of resection was free by 4 cm. The pleural surface was free by 0.2 cm. There was no involvement in 4 hilar lymph nodes. His pathologic stage thus was IA (T1a, N0, M0). Surveillance CT scans of the chest, abdomen, and pelvis on 05/22/2017 showed a spiculated pleural-based nodule in the right upper lobe measuring 8 mm and an additional nodule measuring 6 mm in the medial right upper lobe. Both of these appear to be new from previous studies. Also noted were new tree-in-bud airspace abnormalities in the right upper lobe and right middle lobe and there was a possible 3 mm nodule in the left lower lobe. Findings were felt to be consistent either with infectious process or early metastatic disease. Also noted was a slight increase in the size of mediastinal and hilar lymph nodes compared to August 2016, with the largest node at the left hilum measuring 12 mm. He continued observation/expectant management. A repeat chest CT on 08/22/2017 showed moderate improvement in the aeration throughout both lungs compared to the study from May. A 7 mm right upper lobe subpleural nodule appeared stable. There was near complete resolution of the parenchymal nodule in the right upper lobe. There was a small persistent right pleural effusion. He continued on observation/expectant management. His surveillance CT scans of the chest, abdomen, and pelvis on 01/30/2018 showed increase in the right apical spiculated pulmonary nodule, measuring 14 x 8 mm compared to 7 mm on the prior study. There was interval development of necrotic right hilar lymphadenopathy measuring 2.4 x 1.7 cm. A 9 mm left infrahilar lymph node and a prevascular 12 mm lymph node appeared unchanged. There were new bilateral lower lung zone tree-in-bud nodular opacities, favoring infection or postinflammatory change. Retroperitoneal and inguinal lymph nodes measuring 1-2 cm appeared unchanged, as did additional inguinal, peritoneal, and mesenteric subcentimeter lymph nodes. He had further evaluation with PET/CT on 02/07/2018. It showed a 1.3 cm right lung apical nodule with SUV 4.5, new from the prior CT and suspicious for recurrence. A hypermetabolic superior right hilar lymph node also was consistent with malignancy, SUV 10.6. There were no other areas of significant FDG uptake. He was referred to Dr. Cristian Wong in [place]. He underwent bronchoscopy with EBUS on 03/13/2018. 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 FNA of a station 7 lymph node showed no malignancy. FNA of a station 4R lymph node was insufficient to exclude metastatic disease. He was referred to Dr. Glass and it was recommended that he undergo SBRT to the right upper lobe lesion followed by chemoradiation to the hilar lesion. He completed the SBRT on 04/07/2018 to a total dose of 4800 cGy. He began radiation to the hilar lesion, concurrently with weekly carboplatin/Taxol chemotherapy on 04/09/2018. He had no significant toxicity with his initial chemotherapy infusion, and he received his 2nd infusion of carbo/Taxol on 04/16/2018. His week 3 treatment was delayed 4 days due to a COPD exacerbation, but those symptoms did improve on treatment with Levaquin and prednisone. He was then able to continue his further chemotherapy on schedule. He received his 6th and final infusion of carboplatin/Taxol on 05/18/2018. He completed radiation on 05/27/2018 to a total dose of [address] on 06/30/2018 showed residual spiculated nodule in the right upper lobe measuring 11 mm, slightly smaller from the previous study. Right hilar necrotic lymphadenopathy also was noted to have improved, measuring 12 mm. Previously described pulmonary infiltrates in the right upper lobe were noted to have resolved. There were no other significant changes. Repeat chest CT on 10/05/2018 showed stable spiculated nodule in the right upper lobe measuring 10 x 6 mm. The central left upper lobe nodule measuring 7.5 mm appeared slightly more consolidated. Numerous subcentimeter retroperitoneal lymph nodes also appeared stable. Intermediate hilar lymph nodes also appeared stable. His chest CT on 01/07/2019 showed stable appearance of the right apical spiculated nodule measuring 11 x 7 mm in the left upper lobe noncalcified nodule measuring 7-8 mm. Incompletely visualized retroperitoneal subcentimeter lymph nodes also appeared stable. Overall, there was no evidence of disease progression in the chest. He continued on observation/expectant management. His other medical illnesses include hypertension, COPD, GERD, degenerative arthritis, and peripheral neuropathy. His only prior surgery was a cholecystectomy. He has a 60 year history of smoking, previously in excess of 2 packs of cigarettes daily. He continues to smoke 1 pack per day. INTERIM HISTORY: Repeat CT scans on 07/19/2019 showed spiculated right upper lobe mass with increased pleural thickening, measuring approximately 2.9 x 1.5 CM. There was progression of a noncalcified nodule in the left upper lobe measuring 12 mm. A new noncalcified spiculated nodule was noted in the right hilum measuring 9 mm. The abdomen/pelvis showed stable prominent periaortic and retroperitoneal lymph nodes, the largest measuring approximately 9 mm. Prominent lymph nodes along the mesenteric root appeared unchanged. Enlarged bilateral inguinal lymph nodes were noted to have shown interval progression since 10/05/2018, with the largest right inguinal lymph node measuring 2.1 x 1.9 cm. A restaging PET/CT on 07/24/2019 showed FDG avid right apical pulmonary nodule measuring 1.4 x 2.1 cm, SUV 5.4, consistent with disease progression. A right hilar lymph node showed decreased FDG avidity, SUV 5.4 compared to 10.6 on the previous study. A new left upper lobe nodule measuring 1.2 cm had SUV 3.2, consistent with new metastatic disease. A 9 mm right lower lobe nodule was also noted to be FDG positive and suspicious for metastatic disease. A 2.0 cm right femoral lymph node had elevated SUV of 4.9, suspicious for recurrent lymphoma. Other scattered mesenteric and pelvic nodes appeared unchanged. After review of the CT scans with the radiologist, it appeared that the pulmonary nodules were not accessible for biopsy. He ultimately was referred to Dr. Almendarez for biopsy of the right inguinal lymph node. The procedure was done on 10/12/2019 and pathology did confirm recurrent diffuse large B-cell lymphoma, germinal center subtype. A repeat PET/CT on 11/13/2019 showed unchange in right apical pulmonary nodule with SUV 7.9 compared to 5.4 on the prior study. Mild uptake in a right hilar lymph node was unchanged. A left upper pulmonary nodule had increased in size from 1.2 cm to 1.8 cm with SUV increased from 2.7 to 3.2, and a right lower lobe nodule measured 1.3 cm with SUV 6.9, consistent with progression. There was residual mass in the right inguinal area measuring 5.1 x 5.9 cm with SUV 12.8, strongly consistent with lymphoma. Multiple other FDG positive nodes were present in the right femoral and external iliac territories, including a right external iliac node measuring 6.4 x 4.2 cm with SUV 10.1. There were additional FDG positive nodes in the right common iliac and bilateral periaortic territories, consistent with lymphoma. Prominent mesenteric nodes did not appear significantly changed. Due to his underlying COPD and multiple malignancies, he did not appear to be eligible for autologous stem cell transplant. As such, he began a course of salvage chemotherapy with R-gem ox, cycle 1 day 11/16/2019. He had some vomiting with his cycle 1 day 2 treatment, lasting just 1 day. He otherwise tolerated it well. He continued with cycle 2 on 12/01/2019, with cycle 3 on 12/14/2019, and with cycle 4 on 12/28/2019. Restaging PET/CT on 01/08/2020 showed greatly improved retroperitoneal and pelvic adenopathy. The dominant right inguinal lymph node measured 2.8 x 1.0 cm and was noted to be FDG negative. Other pelvic, retroperitoneal, and mesenteric nodes demonstrated similar improvement. The right apical lung lesion was unchanged and had stable SUV of 7.1. The left upper lobe pulmonary nodule showed improved uptake with SUV 1.5 and was stable in size at 1.7 cm. The central right lower lobe nodule showed decreased SUV to 4.0 from 6.0. Other scattered nodes appeared stable. He continued with cycle 5 of R-gem ox on 01/11/2020 and with cycle 6 on 01/25/2020. He is seen for a scheduled visit. He has been feeling pretty good generally. He has somewhat limited activity tolerance, but he is able to do light work. ECOG score is 1. Appetite is somewhat variable, but adequate. He has no fever or night sweats. He has shortness of breath with activity. He has a morning cough. He does not complain of chest pain. He has no GI/ complaints other than urinary frequency and nocturia. He has no significant joint or bone pain. Has some mild neuropathy in his fingers, mainly with cold sensitivity. Medications: Albuterol Sulfate Nebulization solution Inhalation, Lasix 1 Tablet (of 40 mg) Oral daily, Lisinopril 0.5 Tablet (of 40 mg) Oral daily, Omeprazole 1 (20 mg) Capsule Delayed Release Oral daily, Rosuvastatin Calcium 1 Tablet (of 5 mg) Tablet Oral daily, Spiriva Respimat Aerosol, solution Inhalation Allergies: Seafood (crab legs) Review of Systems: Constitutional - His energy is pretty good. He is able to do light work. His appetite is also pretty good. His weight is stable. No fever, chills, hot flashes, or night sweats. ECOG score is 1, ENMT - No sinus congestion/drainage. No mouth sores. No sore throat or difficulty swallowing, Hematologic/Lymphatic - He bruises easily, Respiratory - He has shortness of breath with activity. He has cough in the mornings. No pleuritic pain or hemoptysis, Cardiovascular - No angina pain. No palpitations, Gastrointestinal - No nausea or vomiting. No heartburn or acid reflux. No diarrhea or constipation. No blood in the stool or black stools, Genitourinary (M) - No dysuria or hematuria. He has urinary frequency and nocturia. No urgency or incontinence, Musculoskeletal - No significant joint or bone pain, Integumentary - No skin complications, Neurologic - No headache or dizziness. He has some numbness/tingling in his fingers, especially with cold exposure. He has no other focal neurologic symptoms, Psychiatric - No anxiety or depression. No insomnia. Vital Signs: Performed on Feb 22, 2020 09:47 Height - 71.00 in Weight - 204.6 lbs (HIGH) BSA - 2.13 sq.m BMI - 28.54 Temperature - 98.0 F (LOW) Pulse - 86 /min Respiration - 18 /min BP - 156/74 mm(hg) (HIGH) O2 Sat - 93 % (LOW) Pain - 0 Physical Examination: Constitutional - He looks pretty good generally, Eyes - Sclerae nonicteric. Conjunctivae clear, ENMT - No lesions noted in the oral cavity, Hematologic/Lymphatic - No cervical, clavicular, or axillary adenopathy noted, Respiratory - Lungs show diminished air movement bilaterally. There are expiratory rhonchi audible anteriorly, Cardiovascular - Heart rhythm is regular. There is no murmur, gallop, or rub noted, Abdomen - Soft. Liver and spleen are not enlarged. There is no abdominal mass or ascites noted. There is no residual inguinal adenopath, Extremities - There is mild to moderate lower extremity edema on the right and just slight on the left, Neurologic - No focal neurologic deficits noted. Lab/Imaging: CBC shows hemoglobin 12.8 g, white blood cell count 7700, and platelet count 281,000. Comprehensive metabolic profile is unremarkable. The LDH is just slightly elevated at 232/225 U/L. Impression: 1. Patient with chronic leukocytic leukemia, initially diagnosed in 2001. He initially had early stage disease and he was followed on observation. In January 2016 he presented with extensive and in some areas bulky lymphadenopathy, and he was confirmed by lymph node biopsy to have transformed diffuse large B cell lymphoma. By clinical evaluation, his disease was stage IIIA. His international prognostic index score was 2, intermediate risk. 2. He was treated with 6 cycles of R-CHOP chemotherapy from 02/14/2016 thru 06/05/2016. He experienced treatment-related fatigue and myelosuppression, including grade 2 anemia and grade 4 neutropenia. He also had some worsening of peripheral neuropathy, mainly in the left hand, where it was grade 3. Restaging CT scans on 07/01/2016 showed significant improvement in the lymphadenopathy, though not complete resolution. Three noncalcified 5 mm pulmonary nodules in the right lung were noted to be stable. 3. His follow-up chest CT in August 2016 showed enlargement of a right lower lobe pulmonary nodule. He underwent right lower lobectomy on 10/28/2016. Pathology confirmed grade 2/4 infiltrating adenocarcinoma, stage IA (T1a, N0, M0). His other medical illnesses include: 2. COPD. 3. Hypertension. 4. GERD. 5. Peripheral neuropathy. This appears to be idiopathic. 6. Nicotine dependence (cigarettes). During followup his initial surveillance CT scans had shown no evidence of recurrence of the lung cancer or lymphoma. His surveillance CT scans in January 2018 showed slight increase in size of a right apical pulmonary nodule measuring 14 x 8 mm and interval development of right hilar necrotic lymphadenopathy measuring 2.4 x 1.7 cm. On further evaluation with PET/CT, both lesions were FDG positive, suspicious for a new non-small cell lung cancer. He underwent bronchoscopy with EBUS on 03/13/2018. The right apical lesion was not accessible. 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 FNA of a station 7 lymph node showed no malignancy. As such, he had a new confirmed non-small cell carcinoma involving the upper lobe of the right lung. Based on the presence of a second tumor nodule within the right upper lobe, his disease was stage IIB (T3, N0, M0). He was given SBRT to the right upper lobe lesion, completed on 04/07/2018 to a total dose of 4800 cGy. He then began radiation to the right hilar lesion, currently with weekly carboplatin/Taxol chemotherapy on 04/09/2018. He completed the first 2 weekly chemotherapy infusions with no significant toxicity. His week 3 treatment was delayed 4 days due to symptoms of COPD exacerbation, but those did improve after treatment with Levaquin and prednisone. He was then able to continue the remainder of his chemotherapy on schedule. He completed his sixth and final infusion of carboplatin/Taxol on 05/18/2018. He completed radiation on 05/27/2018, total dose 1600 cGy. Overall, he tolerated his treatment well. He appeared to have significant response by follow-up chest CT. During follow-up he had initially remained stable clinically with no obvious progression of the lung cancer. However, his repeat CT scans July 2019 showed some progression of lymphadenopathy as well as increased pleural thickening associated with the residual right upper lobe mass. His restaging PET/CT on 07/24/2019 showed progression of the right apical pulmonary nodule as well as suspected bilateral metastatic pulmonary nodules and an FDG avid right femoral lymph node which appeared suspicious for recurrent lymphoma. The pulmonary nodules did not appear to be accessible for biopsy. Right inguinal lymph node biopsy on 10/12/2019 confirmed recurrent diffuse large B-cell lymphoma, germinal center subtype. Restaging PET/CT on 11/13/2019 showed significant progression of lymphoma in the right inguinal/pelvic area. There was also progression of the right apical pulmonary nodule and an additional left upper lobe and right lower lobe pulmonary nodules. The pulmonary nodules had been deemed inaccessible for biopsy. On 11/16/2019 he began cycle 1 of salvage chemotherapy with R-gem ox. He had nausea/vomiting following his day 2 treatment, but it had resolved by the next day. He otherwise tolerated the chemotherapy well. He was then able to continue treatment at 2-week intervals. He began cycle 4 on 12/28/2019. His restaging PET/CT on 01/08/2020 showed significant improvement in the retroperitoneal and pelvic lymphadenopathy. The pulmonary nodules, which I have presumed to be non-small cell lung cancer, remained stable or showed slight improvement. He then continued with cycle 5 of R-gem ox on 01/11/2020 and with cycle 6 on 01/25/2020. Overall, he has tolerated the treatment very well. Plan: He will now be scheduled for restaging PET/CT. Depending on the findings, I may then opt to transition him to second line immunotherapy for the non-small cell lung cancer. Signed By: Jus Castano M.D. <<Signature on File>>
== END 2020-03-09 23:59 | disposition home or self-care (01) ==
LOC: ONCMED 06:59
PROVIDERS: Nurse Practitioner; Family Provider Emergency Medicine Emergency Medical Services; PCP Emergency Medicine Emergency Medical Services; Visit Provider Internal Medicine Medical Oncology
DX: C83.38 Diffuse large B-cell lymphoma, lymph nodes of multiple sites (principal); C34.11 Malignant neoplasm of upper lobe, right bronchus or lung; C78.02 Secondary malignant neoplasm of left lung; J44.9 Chronic obstructive pulmonary disease, unspecified; I10 Essential (primary) hypertension; K21.9 Gastro-esophageal reflux disease without esophagitis; G62.9 Polyneuropathy, unspecified; F17.210 Nicotine dependence, cigarettes, uncomplicated; Z92.21 Personal history of antineoplastic chemotherapy; Z79.899 Other long term (current) drug therapy; Z90.2 Acquired absence of lung [part of]
CPT/HCPCS: 36415; 80053; 83615; 85025; 96523; 99214

== ENCOUNTER 2020-04-05 06:54 | Outpatient (RCR) | payer OTHER, SELFPAY | END 2020-04-09 23:59 | disposition home or self-care (01) | LOC: ONCMED 06:54 | PROVIDERS: PCP Emergency Medicine Emergency Medical Services; Visit Provider Internal Medicine Medical Oncology | DX: Z45.2 Encounter for adjustment and management of vascular access device (principal) | CPT/HCPCS: 96523 ==

== ENCOUNTER 2020-04-20 09:44 | Outpatient (CLI) | payer OTHER, SELFPAY ==
--- NOTE | 2020-04-20 09:54 | CT_ITS ---
WS: [id number] CT CHEST, ABDOMEN AND PELVIS WITH CONTRAST HISTORY: LYMPHOMA/NON SMALL CELL LUNG CANCER TECHNIQUE: Contiguous 5 mm axial imaging performed through the chest, abdomen and pelvis with IV cont rast, oral contrast has been provided. Coronal and sagittal reformats chest. Coronal and sagittal ref ormats through the abdomen and pelvis. All CT scans at [facility] use at least one of the se dose optimization techniques: automated exposure control; mA and/or kV adjustment per patient size (includes targeted exams where dose is matched to clinical indication); or iterative reconstruction. CONTRAST: Omnipaque 300; 95 mL IV. DLP: 1350.72 mGy.cm COMPARISON: 07/19/2019, 01/07/2019 and 10/05/[address]: Mild elevation of the RIGHT hemidiaphragm. Progression of neoplastic disease in the chest. Pleural thickening with contiguous spiculated nodule in the RIGHT apex has progressed. The nodule angeli sures 1.3 x 1.8 cm. There is adjacent pleural thickening measuring 3.5 x 2.1 cm. Increase in size of the central LEFT upper lobe pulmonary nodule. Nodule is irregular now measuring 1.4 mm. Nodule is spi culated. RIGHT hilar spiculated nodule measures 1.7 cm and is increased in size. Spiculated nodule me asuring 1.7 cm RIGHT upper lobe. LEFT subclavian Port-A-Cath with tip in the distal SVC. There is increasing lymphoid tissue at the hi lar regions bilaterally. The largest lymph node on the RIGHT measures 10 mm. Mild enlargement of the heart. No pericardial effusion. Mild atherosclerosis aorta. Abdomen CT: 3 mm low-attenuation nodule in the LEFT lobe the liver. No definite metastatic disease. G allbladder is been removed. Spleen and pancreas are negative. Very mild thickening of the adrenal gla nds. Mild atherosclerosis aorta. No aneurysm. Mildly dilated RIGHT renal pelvis versus parapelvic cys ts. Similar in appearance to the prior study. Mild cortical atrophy LEFT kidney. There are several hy podense nodules for the posterior kidney. No obstruction. No adenopathy or fluid. There are small lymph nodes in the retroperitoneum and the mesentery. No new or enlarging lymph nodes . RIGHT inguinal lymph node is been removed. Surgical clips at the RIGHT inguinal region. Pelvic CT: Fat-containing abdominal wall hernia. Appendix is normal. No free fluid. No osteoblastic or osteolytic bone disease. CT/CT chest abd pel w con* IMPRESSION: 1. Significant progression of neoplastic disease within the chest since 07/19/20 19. Multi lobar pulmonary nodules. These nodules are new or increased in size. Disease has progressed within the chest since the PET/CT of 01/08/2020. 2. Increasing perihilar lymphoid tissue. Largest lymph node on the RIGHT measu res 10 mm. 3. No evidence for metastatic disease to the adrenal glands or liver. 4. Subcentimeter and stable retroperitoneal lymph nodes.
[2020-04-20] MEDS: iohexol 300 mg/mL 50 mL Btl IV (10:32)
[2020-04-20 10:42] LABS: Blood Urea Nitrogen 12 mg/dL (8-23)
[2020-04-20] MEDS: iohexol 300 mg/mL 100 mL Btl IV (11:28)
== END 2020-04-20 09:45 | disposition home or self-care (01) ==
LOC: RAD 09:46
PROVIDERS: PCP Emergency Medicine Emergency Medical Services; Visit Provider Internal Medicine Medical Oncology
DX: C34.90 Malignant neoplasm of unspecified part of unspecified bronchus or lung (principal); R91.8 Other nonspecific abnormal finding of lung field; R59.9 Enlarged lymph nodes, unspecified
CPT/HCPCS: 36415; 71260; 74177; 82565; 84520

== ENCOUNTER 2020-05-05 09:01 | Outpatient (RCR) | payer OTHER, SELFPAY ==
--- NOTE | 2020-04-25 08:31 | ONC FU_ITS ---
Dr. Castano Patient Follow-Up Note Patient: Armando Zurita Unit #: [id number]: 1945 Dicatated By: Jus Castano M.D.Date of Visit:Apr 24, 2020 Onc Med Follow-up/Prog Note Chief Complaint: Chronic lymphocytic leukemia/transformed lymphoma and lung cancer. 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 He also has been treated for nonsmall cell cancer of the right lung. He had known chronic lymphocytic leukemia, initially diagnosed in 2001. He had mostly been followed through the [place]. He had early stage disease, and he had been monitored on observation. I had seen him initially on 01/09/2016 because of increasing lymphocytosis and peripheral lymphadenopathy. The most significant area of adenopathy was in the right side of the neck. A contrast-enhanced neck CT on 01/01/2016 showed extensive multilevel cervical lymphadenopathy and to a lesser extent mediastinal and hilar lymphadenopathy. The largest interventional lymph node appeared to be a right anterior cervical node at level 3 measuring about 5.7 cm in diameter. It was associated with displacement of the right parotid gland and near complete effacement of the right internal jugular vein. A left-sided level 3 cervical node measured 3.1 cm and a left-sided level 4 supraclavicular lymph node measured 3.6 cm. His subsequent evaluation included staging CT scans of the chest/abdomen/pelvis on 01/30/2016. These showed significant, generalized lymphadenopathy and mild splenomegaly. Also noted were subcentimeter pulmonary nodules of undetermined significance. He underwent incisional biopsy of the right neck mass on 01/31/2016. Pathology was consistent with diffuse large B-cell lymphoma, germinal center subtype with high-grade features. Bone marrow aspiration/biopsy on 02/09/2016 did show evidence of chronic lymphocytic leukemia, but no evidence of involvement with the diffuse large B-cell lymphoma. He initiated a course of treatment with R-CHOP chemotherapy on 02/14/2016. His baseline echocardiogram showed adequate LV function with estimated ejection fraction at 55%. His day 1 treatment was complicated by a hypersensitivity reaction to the rituximab, significant enough that he did require treatment with epinephrine. As such, the rituximab infusion was not completed, but he was able to return the following day and complete the CHOP portion of the treatment. The rituximab was re-introduced with the second cycle, and with premedication he tolerated it well. He completed his 6th cycle of treatment on 06/05/2016. Restaging CT scan of the chest, abdomen, and pelvis on 07/01/2016 showed moderate improvement in lymphadenopathy throughout the chest, abdomen and pelvis since the prior study. There were no new lymph nodes or progression of adenopathy noted. Chest CT performed on 09/03/2016 showed enlarging superior segment right lower lobe lung nodule suspicious for primary lung neoplasm. On 10/28/2016 he underwent right lower lobectomy. Pathology showed grade 2/4 infiltrating adenocarcinoma measuring 1.5 x 1.4 cm. The bronchial margin of resection was free by 4 cm. The pleural surface was free by 0.2 cm. There was no involvement in 4 hilar lymph nodes. His pathologic stage thus was IA (T1a, N0, M0). Surveillance CT scans of the chest, abdomen, and pelvis on 05/22/2017 showed a spiculated pleural-based nodule in the right upper lobe measuring 8 mm and an additional nodule measuring 6 mm in the medial right upper lobe. Both of these appear to be new from previous studies. Also noted were new tree-in-bud airspace abnormalities in the right upper lobe and right middle lobe and there was a possible 3 mm nodule in the left lower lobe. Findings were felt to be consistent either with infectious process or early metastatic disease. Also noted was a slight increase in the size of mediastinal and hilar lymph nodes compared to August 2016, with the largest node at the left hilum measuring 12 mm. He continued observation/expectant management. A repeat chest CT on 08/22/2017 showed moderate improvement in the aeration throughout both lungs compared to the study from May. A 7 mm right upper lobe subpleural nodule appeared stable. There was near complete resolution of the parenchymal nodule in the right upper lobe. There was a small persistent right pleural effusion. He continued on observation/expectant management. His surveillance CT scans of the chest, abdomen, and pelvis on 01/30/2018 showed increase in the right apical spiculated pulmonary nodule, measuring 14 x 8 mm compared to 7 mm on the prior study. There was interval development of necrotic right hilar lymphadenopathy measuring 2.4 x 1.7 cm. A 9 mm left infrahilar lymph node and a prevascular 12 mm lymph node appeared unchanged. There were new bilateral lower lung zone tree-in-bud nodular opacities, favoring infection or postinflammatory change. Retroperitoneal and inguinal lymph nodes measuring 1-2 cm appeared unchanged, as did additional inguinal, peritoneal, and mesenteric subcentimeter lymph nodes. He had further evaluation with PET/CT on 02/07/2018. It showed a 1.3 cm right lung apical nodule with SUV 4.5, new from the prior CT and suspicious for recurrence. A hypermetabolic superior right hilar lymph node also was consistent with malignancy, SUV 10.6. There were no other areas of significant FDG uptake. He was referred to Dr. Cristian Wong in [place]. He underwent bronchoscopy with EBUS on 03/13/2018. 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 FNA of a station 7 lymph node showed no malignancy. FNA of a station 4R lymph node was insufficient to exclude metastatic disease. He was referred to Dr. Glass and it was recommended that he undergo SBRT to the right upper lobe lesion followed by chemoradiation to the hilar lesion. He completed the SBRT on 04/07/2018 to a total dose of 4800 cGy. He began radiation to the hilar lesion, concurrently with weekly carboplatin/Taxol chemotherapy on 04/09/2018. He had no significant toxicity with his initial chemotherapy infusion, and he received his 2nd infusion of carbo/Taxol on 04/16/2018. His week 3 treatment was delayed 4 days due to a COPD exacerbation, but those symptoms did improve on treatment with Levaquin and prednisone. He was then able to continue his further chemotherapy on schedule. He received his 6th and final infusion of carboplatin/Taxol on 05/18/2018. He completed radiation on 05/27/2018 to a total dose of [address] on 06/30/2018 showed residual spiculated nodule in the right upper lobe measuring 11 mm, slightly smaller from the previous study. Right hilar necrotic lymphadenopathy also was noted to have improved, measuring 12 mm. Previously described pulmonary infiltrates in the right upper lobe were noted to have resolved. There were no other significant changes. Repeat chest CT on 10/05/2018 showed stable spiculated nodule in the right upper lobe measuring 10 x 6 mm. The central left upper lobe nodule measuring 7.5 mm appeared slightly more consolidated. Numerous subcentimeter retroperitoneal lymph nodes also appeared stable. Intermediate hilar lymph nodes also appeared stable. His chest CT on 01/07/2019 showed stable appearance of the right apical spiculated nodule measuring 11 x 7 mm in the left upper lobe noncalcified nodule measuring 7-8 mm. Incompletely visualized retroperitoneal subcentimeter lymph nodes also appeared stable. Overall, there was no evidence of disease progression in the chest. He continued on observation/expectant management. His other medical illnesses include hypertension, COPD, GERD, degenerative arthritis, and peripheral neuropathy. His only prior surgery was a cholecystectomy. He has a 60 year history of smoking, previously in excess of 2 packs of cigarettes daily. He continues to smoke 1 pack per day. INTERIM HISTORY: Repeat CT scans on 07/19/2019 showed spiculated right upper lobe mass with increased pleural thickening, measuring approximately 2.9 x 1.5 CM. There was progression of a noncalcified nodule in the left upper lobe measuring 12 mm. A new noncalcified spiculated nodule was noted in the right hilum measuring 9 mm. The abdomen/pelvis showed stable prominent periaortic and retroperitoneal lymph nodes, the largest measuring approximately 9 mm. Prominent lymph nodes along the mesenteric root appeared unchanged. Enlarged bilateral inguinal lymph nodes were noted to have shown interval progression since 10/05/2018, with the largest right inguinal lymph node measuring 2.1 x 1.9 cm. A restaging PET/CT on 07/24/2019 showed FDG avid right apical pulmonary nodule measuring 1.4 x 2.1 cm, SUV 5.4, consistent with disease progression. A right hilar lymph node showed decreased FDG avidity, SUV 5.4 compared to 10.6 on the previous study. A new left upper lobe nodule measuring 1.2 cm had SUV 3.2, consistent with new metastatic disease. A 9 mm right lower lobe nodule was also noted to be FDG positive and suspicious for metastatic disease. A 2.0 cm right femoral lymph node had elevated SUV of 4.9, suspicious for recurrent lymphoma. Other scattered mesenteric and pelvic nodes appeared unchanged. After review of the CT scans with the radiologist, it appeared that the pulmonary nodules were not accessible for biopsy. He ultimately was referred to Dr. Almendarez for biopsy of the right inguinal lymph node. The procedure was done on 10/12/2019 and pathology did confirm recurrent diffuse large B-cell lymphoma, germinal center subtype. A repeat PET/CT on 11/13/2019 showed unchange in right apical pulmonary nodule with SUV 7.9 compared to 5.4 on the prior study. Mild uptake in a right hilar lymph node was unchanged. A left upper pulmonary nodule had increased in size from 1.2 cm to 1.8 cm with SUV increased from 2.7 to 3.2, and a right lower lobe nodule measured 1.3 cm with SUV 6.9, consistent with progression. There was residual mass in the right inguinal area measuring 5.1 x 5.9 cm with SUV 12.8, strongly consistent with lymphoma. Multiple other FDG positive nodes were present in the right femoral and external iliac territories, including a right external iliac node measuring 6.4 x 4.2 cm with SUV 10.1. There were additional FDG positive nodes in the right common iliac and bilateral periaortic territories, consistent with lymphoma. Prominent mesenteric nodes did not appear significantly changed. Due to his underlying COPD and multiple malignancies, he did not appear to be eligible for autologous stem cell transplant. As such, he began a course of salvage chemotherapy with R-gem ox, cycle 1 day 11/16/2019. He had some vomiting with his cycle 1 day 2 treatment, lasting just 1 day. He otherwise tolerated it well. He continued with cycle 2 on 12/01/2019, with cycle 3 on 12/14/2019, and with cycle 4 on 12/28/2019. Restaging PET/CT on 01/08/2020 showed greatly improved retroperitoneal and pelvic adenopathy. The dominant right inguinal lymph node measured 2.8 x 1.0 cm and was noted to be FDG negative. Other pelvic, retroperitoneal, and mesenteric nodes demonstrated similar improvement. The right apical lung lesion was unchanged and had stable SUV of 7.1. The left upper lobe pulmonary nodule showed improved uptake with SUV 1.5 and was stable in size at 1.7 cm. The central right lower lobe nodule showed decreased SUV to 4.0 from 6.0. Other scattered nodes appeared stable. He continued with cycle 5 of R-gem ox on 01/11/2020 and with cycle 6 on 01/25/2020. Restaging CT scans of the chest, abdomen, and pelvis on 04/20/2020 showed significant progression of neoplastic disease within the chest with increased pleural thickening and contiguous spiculated nodule in the right apex measuring 1.3 x 1.8 cm. Adjacent pleural thickening measured 3.5 x 2.1 cm. Also noted was increase in size of a left upper lobe pulmonary nodule measuring 1.4 cm and a right upper lobe nodule measuring 1.7 cm. A spiculated right hilar nodule measured 1.7 cm. There was increasing lymphoid tissue noted in the hilar regions bilaterally, the largest on the right measuring 10 mm. There is no definite metastatic disease or adenopathy in the abdomen/pelvis. He is seen for a scheduled visit. He continues to have limited activity tolerance due to shortness of breath. He is able to do some work, though. His ECOG score is 1. He has good appetite. He has had significant weight loss, in the range of 15 to 20 pounds. He does not have fever or night sweats. He has shortness of breath with activity and he has a morning cough. He does not complain of chest pain. He has no GI or complaints. He has no significant joint or bone pain. He has occasional headache. He has numbness in the tips of his fingers. He has no other focal neurologic symptoms. Medications: Albuterol Sulfate Nebulization solution Inhalation, Lasix 1 Tablet (of 40 mg) Oral daily, Lisinopril 0.5 Tablet (of 40 mg) Oral daily, Omeprazole 1 (20 mg) Capsule Delayed Release Oral daily, Rosuvastatin Calcium 1 Tablet (of 5 mg) Tablet Oral daily, Spiriva Respimat Aerosol, solution Inhalation Allergies: Seafood (crab legs) Review of Systems: Constitutional - His energy is pretty good, but he does have limited activity tolerance due to shortness of breath. His appetite is good. He has lost weight, though. He does not have fever or night sweats. ECOG score is 1, ENMT - No sinus congestion/drainage. No mouth sores. No sore throat or difficulty swallowing, Hematologic/Lymphatic - He bruises easily, Respiratory - He has shortness of breath with activity. He has cough in the morning. No pleuritic pain or hemoptysis, Cardiovascular - No angina pain. No palpitations, Gastrointestinal - No nausea or vomiting. No heartburn or acid reflux. No diarrhea or constipation. No blood in the stool or black stools, Genitourinary (M) - No dysuria or hematuria. No urinary frequency. No urgency or incontinence, Musculoskeletal - No joint or bone pain, Integumentary - No skin rash, Neurologic - He occasionally has headache. No dizziness. He has numbness/tingling in the tips of his fingers, Psychiatric - No anxiety or depression. No insomnia. Vital Signs: Performed on Apr 24, 2020 08:46 Height - 71.00 in Weight - 187.2 lbs (LOW) BSA - 2.05 sq.m BMI - 26.11 Temperature - 97.8 F (LOW) Pulse - 74 /min Respiration - 22 /min BP - 133/66 mm(hg) O2 Sat - 95 % (LOW) Pain - 0 Physical Examination: Constitutional - He looks pretty good generally, Eyes - Sclerae nonicteric. Conjunctivae clear, ENMT - No lesions noted in the oral cavity, Hematologic/Lymphatic - No cervical, clavicular, or axillary adenopathy noted, Respiratory - Lungs show diminished air movement with mild expiratory rhonchi bilaterally, Cardiovascular - Heart rhythm is regular. There is no murmur, gallop, or rub noted, Abdomen - Soft. Liver and spleen are not enlarged. There is no abdominal mass or ascites noted. There is no residual inguinal adenopath, Extremities - There is some chronic swelling of the right leg, Neurologic - No focal neurologic deficits noted. Impression: 1. Patient with chronic leukocytic leukemia, initially diagnosed in 2001. He initially had early stage disease and he was followed on observation. In January 2016 he presented with extensive and in some areas bulky lymphadenopathy, and he was confirmed by lymph node biopsy to have transformed diffuse large B cell lymphoma. By clinical evaluation, his disease was stage IIIA. His international prognostic index score was 2, intermediate risk. 2. He was treated with 6 cycles of R-CHOP chemotherapy from 02/14/2016 thru 06/05/2016. He experienced treatment-related fatigue and myelosuppression, including grade 2 anemia and grade 4 neutropenia. He also had some worsening of peripheral neuropathy, mainly in the left hand, where it was grade 3. Restaging CT scans on 07/01/2016 showed significant improvement in the lymphadenopathy, though not complete resolution. Three noncalcified 5 mm pulmonary nodules in the right lung were noted to be stable. 3. His follow-up chest CT in August 2016 showed enlargement of a right lower lobe pulmonary nodule. He underwent right lower lobectomy on 10/28/2016. Pathology confirmed grade 2/4 infiltrating adenocarcinoma, stage IA (T1a, N0, M0). His other medical illnesses include: 2. COPD. 3. Hypertension. 4. GERD. 5. Peripheral neuropathy. This appears to be idiopathic. 6. Nicotine dependence (cigarettes). During followup his initial surveillance CT scans had shown no evidence of recurrence of the lung cancer or lymphoma. His surveillance CT scans in January 2018 showed slight increase in size of a right apical pulmonary nodule measuring 14 x 8 mm and interval development of right hilar necrotic lymphadenopathy measuring 2.4 x 1.7 cm. On further evaluation with PET/CT, both lesions were FDG positive, suspicious for a new non-small cell lung cancer. He underwent bronchoscopy with EBUS on 03/13/2018. The right apical lesion was not accessible. 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 FNA of a station 7 lymph node showed no malignancy. As such, he had a new confirmed non-small cell carcinoma involving the upper lobe of the right lung. Based on the presence of a second tumor nodule within the right upper lobe, his disease was stage IIB (T3, N0, M0). He was given SBRT to the right upper lobe lesion, completed on 04/07/2018 to a total dose of 4800 cGy. He then began radiation to the right hilar lesion, currently with weekly carboplatin/Taxol chemotherapy on 04/09/2018. He completed the first 2 weekly chemotherapy infusions with no significant toxicity. His week 3 treatment was delayed 4 days due to symptoms of COPD exacerbation, but those did improve after treatment with Levaquin and prednisone. He was then able to continue the remainder of his chemotherapy on schedule. He completed his sixth and final infusion of carboplatin/Taxol on 05/18/2018. He completed radiation on 05/27/2018, total dose 1600 cGy. Overall, he tolerated his treatment well. He appeared to have significant response by follow-up chest CT. During follow-up he had initially remained stable clinically with no obvious progression of the lung cancer. However, his repeat CT scans July 2019 showed some progression of lymphadenopathy as well as increased pleural thickening associated with the residual right upper lobe mass. His restaging PET/CT on 07/24/2019 showed progression of the right apical pulmonary nodule as well as suspected bilateral metastatic pulmonary nodules and an FDG avid right femoral lymph node which appeared suspicious for recurrent lymphoma. The pulmonary nodules did not appear to be accessible for biopsy. Right inguinal lymph node biopsy on 10/12/2019 confirmed recurrent diffuse large B-cell lymphoma, germinal center subtype. Restaging PET/CT on 11/13/2019 showed significant progression of lymphoma in the right inguinal/pelvic area. There was also progression of the right apical pulmonary nodule and an additional left upper lobe and right lower lobe pulmonary nodules. The pulmonary nodules had been deemed inaccessible for biopsy. On 11/16/2019 he began cycle 1 of salvage chemotherapy with R-gem ox. He had nausea/vomiting following his day 2 treatment, but it had resolved by the next day. He otherwise tolerated the chemotherapy well. He was then able to continue treatment at 2-week intervals. He began cycle 4 on 12/28/2019. His restaging PET/CT on 01/08/2020 showed significant improvement in the retroperitoneal and pelvic lymphadenopathy. The pulmonary nodules, which I have presumed to be non-small cell lung cancer, remained stable or showed slight improvement. He then continued with cycle 5 of R-gem ox on 01/11/2020 and with cycle 6 on 01/25/2020. Overall, he tolerated the treatment very well. His restaging CT scans on 04/20/2020 showed no residual adenopathy or other metastatic disease in the abdomen/pelvis, but there was evidence of disease progression in both lungs. This would most likely be due to the non-small cell lung cancer, but ideally it should be verified with biopsy. Plan: As he now has evidence of disease progression on both lungs, I will review the CT scans with the radiologist to determine whether or not and he will lesions may be accessible for biopsy. If this is confirmed to be progression of the non-small cell lung cancer, he will be eligible for a trial of immunotherapy. He also will need a next generation sequencing study, assuming there is sufficient material available for analysis. Signed By: Jus Castano M.D. <<Signature on File>>
[2020-05-05 08:42] LABS: INR 0.99 (0.8-1.2)
--- NOTE | 2020-05-05 09:05 | CT_ITS ---
WS: [id number] CT-GUIDED BIOPSY RIGHT UPPER LOBE MASS. HISTORY: CHRONIC LYMPHOCYTIC LEUKEMIA/LYMPHOMA LUNG CANCER DLP: 510.[address] scans at [facility] use at least one of these dose optimization techniques: automat ed exposure control; mA and/or kV adjustment per patient size (includes targeted exams where dose is matched to clinical indication); or iterative reconstruction. Prior imaging studies are reviewed. History and physical are reviewed. Procedure, risks and complicat ions were explained to the patient and family. Consent is obtained. With the patient in a RIGHT lateral decubitus position the mass in the RIGHT upper lobe is identified . There is a posterior nodule with spiculated margins measuring 1.5 cm. Skin is cleansed with ChloraP rep and anesthetized with 1% buffered lidocaine. Small dermatome is made. 20-gauge Temno needle is in serted into the mass. Multiple core biopsies are performed. Specimen is placed in formalin. No compli cations were encountered. Patient will be observed for post procedure complications from [address] radiograph will be obtained in 1.[address]/CT biopsy lung [id number] IMPRESSION: 1. Uncom[address] CT-guided biopsy RIGHT upper lobe pulmonary mass. 2. No complications postprocedure. 3. Pathology results are pending.
== END 2020-05-09 23:59 | disposition home or self-care (01) ==
LOC: ONCMED 09:01
PROVIDERS: PCP Emergency Medicine Emergency Medical Services; Visit Provider Internal Medicine Medical Oncology
DX: C91.10 Chronic lymphocytic leukemia of B-cell type not having achieved remission (principal); C34.11 Malignant neoplasm of upper lobe, right bronchus or lung; C34.31 Malignant neoplasm of lower lobe, right bronchus or lung; D69.59 Other secondary thrombocytopenia; D70.1 Agranulocytosis secondary to cancer chemotherapy; T45.1X5A Adverse effect of antineoplastic and immunosuppressive drugs, initial encounter; J44.9 Chronic obstructive pulmonary disease, unspecified; I10 Essential (primary) hypertension; K21.9 Gastro-esophageal reflux disease without esophagitis; G62.9 Polyneuropathy, unspecified; F17.210 Nicotine dependence, cigarettes, uncomplicated; Z79.899 Other long term (current) drug therapy; Z92.21 Personal history of antineoplastic chemotherapy
CPT/HCPCS: 32405; 36591; 77012; 85610; 88307; 99214

== ENCOUNTER 2020-05-05 09:08 | Day surgery (SDC) | payer OTHER, SELFPAY ==
[2020-05-05] VITALS (8 sets, daily range): BP systolic 107–131; BP diastolic 62–76; PULSE 67–85; RESP 18; TEMP 36.3–36.6; O2SAT 95–100; BMI 26.3
[2020-05-05] MEDS: sodium chloride 0.9% 1,000 mL Bag 30 ML IV (09:55)
[2020-05-05] MEDS: midazolam 1 mg/mL INJ 5 ML IVP (10:35)
[2020-05-05] MEDS: fentaNYL 50 mcg/mL INJ 2mL IV (10:36)
--- NOTE | 2020-05-05 11:00 | SUR.OPER ---
waste 4mg Versed and 50mcg Fentanyl
--- NOTE | 2020-05-05 12:30 | XR_ITS ---
WS: [id number] PORTABLE CHEST HISTORY: post ct bx COMPARISON: 07/06/2018 LEFT Port-A-Cath with tip in distal SVC. No pneumothorax status post RIGHT lung biopsy. No significant bleeding. Chronic emphysema. Cardiac size: Normal. Mediastinum/Aorta: Mild atherosclerosis aorta. No osseous abnormality seen. XR/XR chest 1V portable [id number] IMPRESSION: No pneumothorax status post RIGHT lung biopsy.
== END 2020-05-05 13:20 | disposition home or self-care (01) ==
LOC: CCL 09:08
PROVIDERS: PCP Emergency Medicine Emergency Medical Services; Visit Provider Radiology Diagnostic Radiology
DX: C91.10 Chronic lymphocytic leukemia of B-cell type not having achieved remission (principal)
CPT/HCPCS: 71045; 96374; 96375; J2250; J3010; J7030

== ENCOUNTER 2020-06-07 07:02 | Outpatient (RCR) | payer OTHER, SELFPAY ==
[2020-06-07] MEDS: alteplase 1 mg/mL SDV 2 mL 2 MG IV (14:27)
== END 2020-06-09 23:59 | disposition home or self-care (01) ==
LOC: ONCMED 07:02
PROVIDERS: PCP Emergency Medicine Emergency Medical Services; Visit Provider Nurse Practitioner
DX: C34.11 Malignant neoplasm of upper lobe, right bronchus or lung (principal)
CPT/HCPCS: 36593; 96374; J2997

== ENCOUNTER 2020-07-07 08:35 | Outpatient (CLI) | payer OTHER, SELFPAY ==
[2020-07-07 09:30] LABS: Basophils # 0.1 10^3/uL (0.0-0.1); Basophils % 0.6 %; Eosinophils # 0.5 10^3/uL (0.0-0.8); Eosinophils % 5.7 %; Hemoglobin 11.2 g/dL (11.7-16.6); Lymphocytes # 1.2 10^3/uL (0.8-4.8); Lymphocytes % 13.3 %; Mean Corpuscular HGB Conc 31.1 g/dL (30.0-36.0); Mean Corpuscular Hemoglobin 26.9 pg (28.0-34.0); Mean Corpuscular Volume 86.3 fL (80-94); Mean Platelet Volume 9.5 fL (7.4-10.4); Monocytes # 0.9 10^3/uL (0.2-0.9); Monocytes % 10.1 %; Neutrophils # 6.25 10^3/uL (1.8-7.7); Nucleated Red Blood Cells % 0 %; Platelet Count 324 10^3/cmm (130-400); Red Blood Count 4.17 10^6/uL (4.1-5.3); Red Cell Distribution Width 15.7 % (12.1-15.1); White Blood Count 8.9 10^3/uL (4.0-10.0)
--- NOTE | 2020-07-07 09:34 | CT_ITS ---
WS: [id number] CT CHEST TECHNIQUE: Contrast enhanced CT of the chest with coronal and sagittal reformatted images. CLINICAL INFORMATION: LUNG CANCER COMPARISON: CT biopsy May 05, [address] April 20, 2020. Prior PET/CT NovemberDecember 2019. Pr ior chest abdomen pelvis CTs and July 19, 2019 DLP: 808.[address] scans at [facility] use at least one of these dose optimization techniques: automat ed exposure control; mA and/or kV adjustment per patient size (includes targeted exams where dose is matched to clinical indication); or iterative reconstruction. FINDINGS: Again seen is the Right upper lobe slightly spiculated pleural based pulmonary nodule measuring 2.1 x 2.1 cm compared to 1.8 x 1.5 cm on the prior examination by my measurements with adjacent pleural th ickening. Additional pleural-based right lower lobe mass has significantly increased in size today measuring 3. 3 x 3.6 cm with some surrounding satellite nodules. Nodular pleural thickening in the adjacent right lower lobe medially. Previously this lesion measured only 1.3 x 1.5 cm. This is significantly progres sed. Pathologic right hilar lymphadenopathy also appears progressed today measuring 1.4 x 2.3 CM. Bronchov ascular thickening along the right hilum. No anterior mediastinal lymphadenopathy. No significant lef t hilar lymphadenopathy. New/progressed subpleural pulmonary nodules right middle lobe along the diaphragm measuring 2.6 x 1.6 cm suspicious for metastatic disease. Smaller subpleural nodules in the right middle lobe. Additiona l stable cavitating left upper lobe nodule measuring 1.5 CM. Normal thyroid gland. Normal caliber thoracic aorta. Proximal main pulmonary arteries are normal. Adrenal glands are normal. Cholecystectomy clips. No axillary lymphadenopathy. Mild chronic emphysema tous changes. Thoracic kyphosis. Anterior wedging in the mid thoracic spine. CT/CT chest w con* [id number] IMPRESSION: 1. Significant interval progression of disease compared to the prior examinati ons. 2. Marked interval enlargement of the right lower lobe pulmonary mass today me asuring 3.3 x 3.6 cm with surrounding new satellite nodules and nodular pleural thickening. 3. Progressed right upper lobe nodule with pleural thickening today measuring 2.0 x 2.0 CM. 4. New right middle lobe subpleural nodules the largest measuring 2.6 x 1.6 CM along the diaphragm. 5. Progressed right hilar masslike lymphadenopathy measuring 1.4 x 2.3 CM. 6. Cavitary nodule left upper lobe appears stable. 7. Moderate chronic emphysematous changes.
[2020-07-07 09:41] LABS: Alanine Aminotransferase < 5 U/L (0-41); Albumin Level 3.8 g/dL (3.5-5.2); Alkaline Phosphatase 88 IU/L (40-130); Anion Gap 12.9 (5-19); Aspartate Amino Transferase 7 U/L (0-40); Blood Urea Nitrogen 11 mg/dL (8-23); Calcium 8.8 mg/dL (8.5-10.5); Carbon Dioxide 29 mmol/L (22-29); Chloride 99 mmol/L (98-107); Globulin 2.5 g/dL (1.3-4.6); Glucose 111 mg/dL (65-115); Osmolality Calculated 281 mOsm/kg (285-295); Potassium 3.9 mmol/L (3.5-5.1); Sodium 137 mmol/L (136-145); Total Bilirubin 0.6 mg/dL (0.15-1.2); Total Protein 6.3 g/dL (6.6-8.7)
[2020-07-07] MEDS: iohexol 300 mg/mL 100 mL Btl IV (10:43)
== END 2020-07-07 08:36 | disposition home or self-care (01) ==
LOC: RADWPI 08:35 → ONCMED 08:35
PROVIDERS: PCP Emergency Medicine Emergency Medical Services; Visit Provider Internal Medicine Medical Oncology
DX: C91.10 Chronic lymphocytic leukemia of B-cell type not having achieved remission (principal); C83.38 Diffuse large B-cell lymphoma, lymph nodes of multiple sites; C34.11 Malignant neoplasm of upper lobe, right bronchus or lung; R91.8 Other nonspecific abnormal finding of lung field; C34.31 Malignant neoplasm of lower lobe, right bronchus or lung
CPT/HCPCS: 36591; 71260; 80053; 85025; Q9967

== ENCOUNTER 2020-07-19 13:42 | Outpatient (CLI) | payer OTHER, SELFPAY ==
[2020-07-19 14:42] LABS: Basophils # 0.1 10^3/uL (0.0-0.1); Basophils % 0.7 %; Eosinophils # 0.4 10^3/uL (0.0-0.8); Eosinophils % 3.5 %; Hematocrit 34.8 % (42.0-52.0); Hemoglobin 10.9 g/dL (11.7-16.6); Lymphocytes # 1.2 10^3/uL (0.8-4.8); Lymphocytes % 12.4 %; Mean Corpuscular HGB Conc 31.3 g/dL (30.0-36.0); Mean Corpuscular Hemoglobin 26.9 pg (28.0-34.0); Mean Corpuscular Volume 85.9 fL (80-94); Monocytes % 10.4 %; Neutrophils # 7.25 10^3/uL (1.8-7.7); Neutrophils % 72.5 %; Nucleated Red Blood Cells % 0 %; Platelet Count 359 10^3/cmm (130-400); Red Blood Count 4.05 10^6/uL (4.1-5.3); Red Cell Distribution Width 15.1 % (12.1-15.1)
[2020-07-19 15:08] LABS: Alanine Aminotransferase 7 U/L (0-41); Albumin Level 3.7 g/dL (3.5-5.2); Alkaline Phosphatase 95 IU/L (40-130); Anion Gap 13.7 (5-19); Aspartate Amino Transferase 13 U/L (0-40); Blood Urea Nitrogen 13 mg/dL (8-23); Carbon Dioxide 27 mmol/L (22-29); Chloride 99 mmol/L (98-107); Globulin 2.7 g/dL (1.3-4.6); Glucose 120 mg/dL (65-115); Osmolality Calculated 279 mOsm/kg (285-295); Potassium 3.7 mmol/L (3.5-5.1); Sodium 136 mmol/L (136-145); Thyroid Stimulating Hormone 1.49 uIU/mL (0.27-4.20); Total Bilirubin 0.3 mg/dL (0.15-1.2); Total Protein 6.4 g/dL (6.6-8.7)
[2020-07-19] MEDS: alteplase 1 mg/mL SDV 2 mL 2 MG IV (15:15)
[2020-07-19] MEDS: sodium chloride 0.9% 250 ML 999 ML IV (15:35)
== END 2020-07-19 13:43 | disposition home or self-care (01) ==
LOC: ONCMED 13:44
PROVIDERS: PCP Emergency Medicine Emergency Medical Services; Visit Provider Nurse Practitioner
DX: Z51.12 Encounter for antineoplastic immunotherapy (principal); C34.11 Malignant neoplasm of upper lobe, right bronchus or lung; C34.31 Malignant neoplasm of lower lobe, right bronchus or lung; R53.83 Other fatigue
CPT/HCPCS: 36593; 80053; 84443; 85025; 96375; 96413; J2997; J7050; J9271

== ENCOUNTER 2020-08-09 05:58 | Outpatient (CLI) | payer OTHER, SELFPAY ==
[2020-08-09 12:04] LABS: Basophils # 0.1 10^3/uL (0.0-0.1); Basophils % 0.6 %; Eosinophils # 0.2 10^3/uL (0.0-0.8); Eosinophils % 1.8 %; Hematocrit 35.4 % (42.0-52.0); Hemoglobin 10.9 g/dL (11.7-16.6); Lymphocytes # 1.3 10^3/uL (0.8-4.8); Lymphocytes % 11.5 %; Mean Corpuscular HGB Conc 30.8 g/dL (30.0-36.0); Mean Corpuscular Hemoglobin 26.3 pg (28.0-34.0); Mean Corpuscular Volume 85.3 fL (80-94); Mean Platelet Volume 9.6 fL (7.4-10.4); Neutrophils # 8.28 10^3/uL (1.8-7.7); Neutrophils % 76.5 %; Nucleated Red Blood Cells % 0 %; Platelet Count 406 10^3/cmm (130-400); Red Blood Count 4.15 10^6/uL (4.1-5.3); Red Cell Distribution Width 13.9 % (12.1-15.1); White Blood Count 10.8 10^3/uL (4.0-10.0)
[2020-08-09 12:25] LABS: Alanine Aminotransferase < 5 U/L (0-41); Albumin Level 3.5 g/dL (3.5-5.2); Alkaline Phosphatase 99 IU/L (40-130); Anion Gap 12.8 (5-19); Aspartate Amino Transferase 11 U/L (0-40); Blood Urea Nitrogen 12 mg/dL (8-23); Calcium 9.2 mg/dL (8.5-10.5); Carbon Dioxide 29 mmol/L (22-29); Chloride 96 mmol/L (98-107); Globulin 2.7 g/dL (1.3-4.6); Glucose 111 mg/dL (65-115); Osmolality Calculated 278 mOsm/kg (285-295); Potassium 3.8 mmol/L (3.5-5.1); Sodium 134 mmol/L (136-145); Total Bilirubin 0.3 mg/dL (0.15-1.2); Total Protein 6.2 g/dL (6.6-8.7)
--- NOTE | 2020-08-14 00:03 | ONC FU_ITS ---
[facility] Patient Note Patient: Armando Zurita Unit #: [id number]: 1945 Dictated By: Nohelia PringleDate of Visit: Aug 09, 2020 Onc MED Follow-Up/Prog Note Chief Complaint: Chronic lymphocytic leukemia/transformed lymphoma and lung cancer. 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 He also has been treated for nonsmall cell cancer of the right lung. He had known chronic lymphocytic leukemia, initially diagnosed in 2001. He had mostly been followed through the [facility]. He had early stage disease, and he had been monitored on observation. Dr Castano had seen him initially on 01/09/2016 because of increasing lymphocytosis and peripheral lymphadenopathy. The most significant area of adenopathy was in the right side of the neck. A contrast-enhanced neck CT on 01/01/2016 showed extensive multilevel cervical lymphadenopathy and to a lesser extent mediastinal and hilar lymphadenopathy. The largest interventional lymph node appeared to be a right anterior cervical node at level 3 measuring about 5.7 cm in diameter. It was associated with displacement of the right parotid gland and near complete effacement of the right internal jugular vein. A left-sided level 3 cervical node measured 3.1 cm and a left-sided level 4 supraclavicular lymph node measured 3.6 cm. His subsequent evaluation included staging CT scans of the chest/abdomen/pelvis on 01/30/2016. These showed significant, generalized lymphadenopathy and mild splenomegaly. Also noted were subcentimeter pulmonary nodules of undetermined significance. He underwent incisional biopsy of the right neck mass on 01/31/2016. Pathology was consistent with diffuse large B-cell lymphoma, germinal center subtype with high-grade features. Bone marrow aspiration/biopsy on 02/09/2016 did show evidence of chronic lymphocytic leukemia, but no evidence of involvement with the diffuse large B-cell lymphoma. He initiated a course of treatment with R-CHOP chemotherapy on 02/14/2016. His baseline echocardiogram showed adequate LV function with estimated ejection fraction at 55%. His day 1 treatment was complicated by a hypersensitivity reaction to the rituximab, significant enough that he did require treatment with epinephrine. As such, the rituximab infusion was not completed, but he was able to return the following day and complete the CHOP portion of the treatment. The rituximab was re-introduced with the second cycle, and with premedication he tolerated it well. He completed his 6th cycle of treatment on 06/05/2016. Restaging CT scan of the chest, abdomen, and pelvis on 07/01/2016 showed moderate improvement in lymphadenopathy throughout the chest, abdomen and pelvis since the prior study. There were no new lymph nodes or progression of adenopathy noted. Chest CT performed on 09/03/2016 showed enlarging superior segment right lower lobe lung nodule suspicious for primary lung neoplasm. On 10/28/2016 he underwent right lower lobectomy. Pathology showed grade 2/4 infiltrating adenocarcinoma measuring 1.5 x 1.4 cm. The bronchial margin of resection was free by 4 cm. The pleural surface was free by 0.2 cm. There was no involvement in 4 hilar lymph nodes. His pathologic stage thus was IA (T1a, N0, M0). Surveillance CT scans of the chest, abdomen, and pelvis on 05/22/2017 showed a spiculated pleural-based nodule in the right upper lobe measuring 8 mm and an additional nodule measuring 6 mm in the medial right upper lobe. Both of these appear to be new from previous studies. Also noted were new tree-in-bud airspace abnormalities in the right upper lobe and right middle lobe and there was a possible 3 mm nodule in the left lower lobe. Findings were felt to be consistent either with infectious process or early metastatic disease. Also noted was a slight increase in the size of mediastinal and hilar lymph nodes compared to August 2016, with the largest node at the left hilum measuring 12 mm. He continued observation/expectant management. A repeat chest CT on 08/22/2017 showed moderate improvement in the aeration throughout both lungs compared to the study from May. A 7 mm right upper lobe subpleural nodule appeared stable. There was near complete resolution of the parenchymal nodule in the right upper lobe. There was a small persistent right pleural effusion. He continued on observation/expectant management. His surveillance CT scans of the chest, abdomen, and pelvis on 01/30/2018 showed increase in the right apical spiculated pulmonary nodule, measuring 14 x 8 mm compared to 7 mm on the prior study. There was interval development of necrotic right hilar lymphadenopathy measuring 2.4 x 1.7 cm. A 9 mm left infrahilar lymph node and a prevascular 12 mm lymph node appeared unchanged. There were new bilateral lower lung zone tree-in-bud nodular opacities, favoring infection or postinflammatory change. Retroperitoneal and inguinal lymph nodes measuring 1-2 cm appeared unchanged, as did additional inguinal, peritoneal, and mesenteric subcentimeter lymph nodes. He had further evaluation with PET/CT on 02/07/2018. It showed a 1.3 cm right lung apical nodule with SUV 4.5, new from the prior CT and suspicious for recurrence. A hypermetabolic superior right hilar lymph node also was consistent with malignancy, SUV 10.6. There were no other areas of significant FDG uptake. He was referred to Dr. Cristian Wong in [place]. He underwent bronchoscopy with EBUS on 03/13/2018. 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 FNA of a station 7 lymph node showed no malignancy. FNA of a station 4R lymph node was insufficient to exclude metastatic disease. He was [place] [facility] [place] and it was recommended that he undergo SBRT to the right upper lobe lesion followed by chemoradiation to the hilar lesion. He completed the SBRT on 04/07/2018 to a total dose of 4800 cGy. He began radiation to the hilar lesion, concurrently with weekly carboplatin/Taxol chemotherapy on 04/09/2018. He had no significant toxicity with his initial chemotherapy infusion, and he received his 2nd infusion of carbo/Taxol on 04/16/2018. His week 3 treatment was delayed 4 days due to a COPD exacerbation, but those symptoms did improve on treatment with Levaquin and prednisone. He was then able to continue his further chemotherapy on schedule. He received his 6th and final infusion of carboplatin/Taxol on 05/18/2018. He completed radiation on 05/27/2018 to a total dose of [address] on 06/30/2018 showed residual spiculated nodule in the right upper lobe measuring 11 mm, slightly smaller from the previous study. Right hilar necrotic lymphadenopathy also was noted to have improved, measuring 12 mm. Previously described pulmonary infiltrates in the right upper lobe were noted to have resolved. There were no other significant changes. Repeat chest CT on 10/05/2018 showed stable spiculated nodule in the right upper lobe measuring 10 x 6 mm. The central left upper lobe nodule measuring 7.5 mm appeared slightly more consolidated. Numerous subcentimeter retroperitoneal lymph nodes also appeared stable. Intermediate hilar lymph nodes also appeared stable. His chest CT on 01/07/2019 showed stable appearance of the right apical spiculated nodule measuring 11 x 7 mm in the left upper lobe noncalcified nodule measuring 7-8 mm. Incompletely visualized retroperitoneal subcentimeter lymph nodes also appeared stable. Overall, there was no evidence of disease progression in the chest. He continued on observation/expectant management. His other medical illnesses include hypertension, COPD, GERD, degenerative arthritis, and peripheral neuropathy. His only prior surgery was a cholecystectomy. He has a 60 year history of smoking, previously in excess of 2 packs of cigarettes daily. He continues to smoke 1 pack per day. INTERIM HISTORY: Repeat CT scans on 07/19/2019 showed spiculated right upper lobe mass with increased pleural thickening, measuring approximately 2.9 x 1.5 CM. There was progression of a noncalcified nodule in the left upper lobe measuring 12 mm. A new noncalcified spiculated nodule was noted in the right hilum measuring 9 mm. The abdomen/pelvis showed stable prominent periaortic and retroperitoneal lymph nodes, the largest measuring approximately 9 mm. Prominent lymph nodes along the mesenteric root appeared unchanged. Enlarged bilateral inguinal lymph nodes were noted to have shown interval progression since 10/05/2018, with the largest right inguinal lymph node measuring 2.1 x 1.9 cm. A restaging PET/CT on 07/24/2019 showed FDG avid right apical pulmonary nodule measuring 1.4 x 2.1 cm, SUV 5.4, consistent with disease progression. A right hilar lymph node showed decreased FDG avidity, SUV 5.4 compared to 10.6 on the previous study. A new left upper lobe nodule measuring 1.2 cm had SUV 3.2, consistent with new metastatic disease. A 9 mm right lower lobe nodule was also noted to be FDG positive and suspicious for metastatic disease. A 2.0 cm right femoral lymph node had elevated SUV of 4.9, suspicious for recurrent lymphoma. Other scattered mesenteric and pelvic nodes appeared unchanged. After review of the CT scans with the radiologist, it appeared that the pulmonary nodules were not accessible for biopsy. He ultimately was referred to Dr. Almendarez for biopsy of the right inguinal lymph node. The procedure was done on 10/12/2019 and pathology did confirm recurrent diffuse large B-cell lymphoma, germinal center subtype. A repeat PET/CT on 11/13/2019 showed unchange in right apical pulmonary nodule with SUV 7.9 compared to 5.4 on the prior study. Mild uptake in a right hilar lymph node was unchanged. A left upper pulmonary nodule had increased in size from 1.2 cm to 1.8 cm with SUV increased from 2.7 to 3.2, and a right lower lobe nodule measured 1.3 cm with SUV 6.9, consistent with progression. There was residual mass in the right inguinal area measuring 5.1 x 5.9 cm with SUV 12.8, strongly consistent with lymphoma. Multiple other FDG positive nodes were present in the right femoral and external iliac territories, including a right external iliac node measuring 6.4 x 4.2 cm with SUV 10.1. There were additional FDG positive nodes in the right common iliac and bilateral periaortic territories, consistent with lymphoma. Prominent mesenteric nodes did not appear significantly changed. Due to his underlying COPD and multiple malignancies, he did not appear to be eligible for autologous stem cell transplant. As such, he began a course of salvage chemotherapy with R-gem ox, cycle 1 day 11/16/2019. He had some vomiting with his cycle 1 day 2 treatment, lasting just 1 day. He otherwise tolerated it well. He continued with cycle 2 on 12/01/2019, with cycle 3 on 12/14/2019, and with cycle 4 on 12/28/2019. Restaging PET/CT on 01/08/2020 showed greatly improved retroperitoneal and pelvic adenopathy. The dominant right inguinal lymph node measured 2.8 x 1.0 cm and was noted to be FDG negative. Other pelvic, retroperitoneal, and mesenteric nodes demonstrated similar improvement. The right apical lung lesion was unchanged and had stable SUV of 7.1. The left upper lobe pulmonary nodule showed improved uptake with SUV 1.5 and was stable in size at 1.7 cm. The central right lower lobe nodule showed decreased SUV to 4.0 from 6.0. Other scattered nodes appeared stable. He continued with cycle 5 of R-gem ox on 01/11/2020 and with cycle 6 on 01/25/2020. Restaging CT scans of the chest, abdomen, and pelvis on 04/20/2020 showed significant progression of neoplastic disease within the chest with increased pleural thickening and contiguous spiculated nodule in the right apex measuring 1.3 x 1.8 cm. Adjacent pleural thickening measured 3.5 x 2.1 cm. Also noted was increase in size of a left upper lobe pulmonary nodule measuring 1.4 cm and a right upper lobe nodule measuring 1.7 cm. A spiculated right hilar nodule measured 1.7 cm. There was increasing lymphoid tissue noted in the hilar regions bilaterally, the largest on the right measuring 10 mm. There is no definite metastatic disease or adenopathy in the abdomen/pelvis. He underwent right lower lobe lung mass CT guided core biopsy on August 05, 2020. It reported as poorly differentiated large cell carcinoma with necrosis negative p63 and negative TDF???1. He did have Caris testing on the specimen. It was reported as ALK negative; BRAF mutation not detected; EGFR pathogenic variant exon 20/ [id number]. PD-L1 was negative. he did have high tumor mutational burden with 12 mutations. It also reported TP53 pathogenic variant exon 8/p. [id number]. MSI was indeterminate. Mr. Zurita had follow-up CT of the chest with contrast on July 07, 2020. It reported significant interval progression of disease compared to prior exams. There is marked interval enlargement of the right lower lobe pulmonary mass measuring 3.3 x 3.6 with surrounding new satellite nodules and nodular pleural thickening. Progressed right upper lobe nodule with pleural thickening measuring 2.0 x 2.0 cm. New right middle lobe subpleural nodules with the largest measuring 2.6 x 1.6 cm along the diaphragm. There is progressed right hilar masslike lymphadenopathy measuring 1.4 x 2.3 cm. There is a cavitary nodule left upper lobe that appears stable and moderate chronic emphysematous changes. Mr. Zurita's original biopsy from 2017 reported squamous cell carcinoma well to moderately differentiated. Mr. Zurita has been offered palliative immunotherapy with pembrolizumab. He began his first cycle on July 19, 2020. Mr. Zurita is here today for follow-up. He has tolerated the first cycle of pembrolizumab well. His only complaint today is that he is having some right upper quadrant pain. He states that it may have gotten a little worse since his last treatment. He states is not sure that his breathing has changed much. He denies any pneumonitis symptoms. He has had no fever or chills. He has had no signs of infection for at least the last 72 hours. He denies any known COVID exposure, symptoms or personal testing. He states he is eating fairly good. His energy is very marginal. Some days he can get out and do some things and some days he cannot. He states this is really no worse than what it has been. He denies any diarrhea or constipation. His bladder is normal for him as well. He denies any lower extremity edema. He states that the right upper quadrant pain is a stabbing type sharp/dull type pain that is not getting any relief with Tylenol. He has not tried any pain medication as he states he does not have any. He denies any adverse reaction to hydrocodone in the past. He denies any rash. He has had no neurological symptoms such as headache, vision changes or confusion. His ECOG is 2. Past Medical History: Chronic obstructive pulmonary disease Degenerative arthritis Gastroesophageal reflux disease Hypertension Peripheral neuropathy Past Surgical History: Cataract excision Cholecystectomy Left sided port placement in 2016 - Right Lower Lobectomy in 2016 Bone marrow aspiration/biopsy in 2016 Incisional biopsy right neck mass in 2016 Allergies: Seafood (crab legs) Medications: Albuterol Sulfate Nebulization solution Inhalation Lasix 1 Tablet (of 40 mg) Oral daily Lisinopril 0.5 Tablet (of 40 mg) Oral daily Omeprazole 1 (20 mg) Capsule Delayed Release Oral daily Rosuvastatin Calcium 1 Tablet (of 5 mg) Tablet Oral daily Spiriva Respimat Aerosol, solution Inhalation Family History: Mr. Zurita's mother at age 75: lupus, and stroke. Mr. Zurita's father at age 76: ME. Mr. Zurita has 1 brother who is : congestive heart failure. Father of heart attack age 76. His mother had lupus and of stroke at age 75. A brother at age 77 had a sudden following abdominal surgery. Social History: Mr. Zurita is and he is retired. He is a daily smoker who has smoked 1.0 pack/day for 0 years. He has no history of drinking. Mr. Zurita reports the following support systems: lives with spouse, significant other, family, or friends, lives in own house, supportive family/friends willing to assist with needs, and adequate transportation available for expected visits. His diet consists of regular meals. He indicates his activity level as: daily activities. He has been smoking for 60 years, previously in excess of 2 packs of cigarettes daily. He is currently smoking 1 pack per day. In the past he has tried nicotine patches, but unsuccessfully. He has had some alcohol use in the past, but it was never heavy. He has had no alcohol use for more than 6 years. Review Of Symptoms: Constitutional Denies fevers, chills, night sweats. Mild fatigue. Allergic/Immunologic No reactions. Eyes Denies significant visual changes. No diplopia. No amaurosis. ENMT Denies changes in hearing, sore throat, mouth sores, difficulty or changes in swallowing ability. Endocrine Denies hot flashes or night sweats. Hematologic/Lymphatic The patient denies any tender or palpable lymph nodes. Respiratory no change in breathing-RUQ/lower right rib area pain-see above Cardiovascular Denies anginal chest pain. Gastrointestinal Denies nausea, vomiting, diarrhea, heartburn, or constipation. Genitourinary (M) Denies hematuria, dysuria, increased frequency, urgency, hesitancy or incontinence. Musculoskeletal Denies joint pain, swelling or redness. No decreased range of motion. Integumentary Denies chronic rashes, inflammation, ulcerations or skin changes. Neurologic Denies headache. Psychiatric Denies insomnia, depression, anxiety. Vital Signs: Performed on Aug 09, 2020 13:42 Height - 71.00 in Weight - 184.6 lbs (LOW) BSA - 2.04 sq.m BMI - 25.75 Temperature - 99.2 F (HIGH) Pulse - 99 /min Respiration - 24 /min BP - 114/64 mm(hg) O2 Sat - 98 % Pain - 8,2 - Ambulatory/capable of all self-care, unable to perform any work activities. Up and about more than 50% of waking hours. (ECOG) Physical Examination: Constitutional Alert, oriented, no acute distress. Skin pale/pink, warm and dry. Head Normocephalic; atraumatic. Eyes Conjunctivae and sclerae are clear and without icterus. Pupils are reactive and equal. Neck Supple without masses or thyromegaly. No jugular venous distension. Hematologic/Lymphatic No petechiae or purpura. No tender or palpable lymph nodes in the cervical, supraclavicular areas. Respiratory Lungs are clear to auscultation without rhonchi or wheezing. Cardiovascular Regular rate and rhythm of heart without murmurs,clicks, gallops or rubs. Chest Chest is symmetric without chest wall deformities. Left venous access device insertion site is unremarkable.. Abdomen Non-tender, non-distended, no masses, ascites. RUQ/lower rib area tenderness denies trauma. Back/Spine Non-tender to palpation. Musculoskeletal normal range of motion without obvious weakness. Integumentary No rashes or lesions. Neurologic No sensory or motor deficits, normal cerebellar function, normal-slow- gait. Psychiatric Alert and oriented times three. Coherent speech. Verbalizes understanding of our discussions today. Laboratory:Test performed on Aug 09, 2020 11:50 Sodium 134 mmol/L Potassium 3.8 mmol/L Chloride 96 mmol/L CO2 29 mmol/L Anion Gap 12.8 BUN 12 mg/dL Creatinine 0.8 mg/dL Cr Clearance (Est) 95.9500 mL/min Glucose 111 mg/dL Osmolality - Calculated 278 mOsm/kg Calcium 9.2 mg/dL Protein, Total 6.2 g/dL Albumin 3.5 g/dL Globulin 2.7 g/dL Bilirubin, Total 0.3 mg/dL ALT (SGPT) < 5 U/L AST (SGOT) 11 U/L Alkaline Phosphatase 99 IU/L WBC 10.8 10 3/uL RBC 4.15 10 6/uL HGB 10.9 g/dL HCT 35.4 % MCV 85.3 fL MCH 26.3 pg MCHC 30.8 g/dL RDW 13.9 % Platelet Count 406 10 3/cmm MPV 9.6 fL Neutrophils 8.28 10 3/uL Lymphocytes 1.3 10 3/uL Monocytes 1.0 10 3/uL Eosinophils 0.2 10 3/uL Basophils 0.1 10 3/uL Neutrophil % 76.5 % Lymphocyte % 11.5 % Monocyte % 9.0 % Eosinophil % 1.8 % Basophils % 0.6 % NRBC % 0 % Impression: 1. Patient with chronic leukocytic leukemia, initially diagnosed in 2001. He initially had early stage disease and he was followed on observation. In January 2016 he presented with extensive and in some areas bulky lymphadenopathy, and he was confirmed by lymph node biopsy to have transformed diffuse large B cell lymphoma. By clinical evaluation, his disease was stage IIIA. His international prognostic index score was 2, intermediate risk. 2. He was treated with 6 cycles of R-CHOP chemotherapy from 02/14/2016 thru 06/05/2016. He experienced treatment-related fatigue and myelosuppression, including grade 2 anemia and grade 4 neutropenia. He also had some worsening of peripheral neuropathy, mainly in the left hand, where it was grade 3. Restaging CT scans on 07/01/2016 showed significant improvement in the lymphadenopathy, though not complete resolution. Three noncalcified 5 mm pulmonary nodules in the right lung were noted to be stable. 3. His follow-up chest CT in August 2016 showed enlargement of a right lower lobe pulmonary nodule. He underwent right lower lobectomy on 10/28/2016. Pathology confirmed grade 2/4 infiltrating adenocarcinoma, stage IA (T1a, N0, M0). His other medical illnesses include: 2. COPD. 3. Hypertension. 4. GERD. 5. Peripheral neuropathy. This appears to be idiopathic. 6. Nicotine dependence (cigarettes). During followup his initial surveillance CT scans had shown no evidence of recurrence of the lung cancer or lymphoma. His surveillance CT scans in January 2018 showed slight increase in size of a right apical pulmonary nodule measuring 14 x 8 mm and interval development of right hilar necrotic lymphadenopathy measuring 2.4 x 1.7 cm. On further evaluation with PET/CT, both lesions were FDG positive, suspicious for a new non-small cell lung cancer. He underwent bronchoscopy with EBUS on 03/13/2018. The right apical lesion was not accessible. 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 FNA of a station 7 lymph node showed no malignancy. As such, he had a new confirmed non-small cell carcinoma involving the upper lobe of the right lung. Based on the presence of a second tumor nodule within the right upper lobe, his disease was stage IIB (T3, N0, M0). He was given SBRT to the right upper lobe lesion, completed on 04/07/2018 to a total dose of 4800 cGy. He then began radiation to the right hilar lesion, currently with weekly carboplatin/Taxol chemotherapy on 04/09/2018. He completed the first 2 weekly chemotherapy infusions with no significant toxicity. His week 3 treatment was delayed 4 days due to symptoms of COPD exacerbation, but those did improve after treatment with Levaquin and prednisone. He was then able to continue the remainder of his chemotherapy on schedule. He completed his sixth and final infusion of carboplatin/Taxol on 05/18/2018. He completed radiation on 05/27/2018, total dose 1600 cGy. Overall, he tolerated his treatment well. He appeared to have significant response by follow-up chest CT. During follow-up he had initially remained stable clinically with no obvious progression of the lung cancer. However, his repeat CT scans July 2019 showed some progression of lymphadenopathy as well as increased pleural thickening associated with the residual right upper lobe mass. His restaging PET/CT on 07/24/2019 showed progression of the right apical pulmonary nodule as well as suspected bilateral metastatic pulmonary nodules and an FDG avid right femoral lymph node which appeared suspicious for recurrent lymphoma. The pulmonary nodules did not appear to be accessible for biopsy. Right inguinal lymph node biopsy on 10/12/2019 confirmed recurrent diffuse large B-cell lymphoma, germinal center subtype. Restaging PET/CT on 11/13/2019 showed significant progression of lymphoma in the right inguinal/pelvic area. There was also progression of the right apical pulmonary nodule and an additional left upper lobe and right lower lobe pulmonary nodules. The pulmonary nodules had been deemed inaccessible for biopsy. On 11/16/2019 he began cycle 1 of salvage chemotherapy with R-gem ox. He had nausea/vomiting following his day 2 treatment, but it had resolved by the next day. He otherwise tolerated the chemotherapy well. He was then able to continue treatment at 2-week intervals. He began cycle 4 on 12/28/2019. His restaging PET/CT on 01/08/2020 showed significant improvement in the retroperitoneal and pelvic lymphadenopathy. The pulmonary nodules, which has been presumed to be non-small cell lung cancer, remained stable or showed slight improvement. He then continued with cycle 5 of R-gem ox on 01/11/2020 and with cycle 6 on 01/25/2020. Overall, he tolerated the treatment very well. Restaging CT scans of the chest, abdomen, and pelvis on 04/20/2020 showed significant progression of neoplastic disease within the chest with increased pleural thickening and contiguous spiculated nodule in the right apex measuring 1.3 x 1.8 cm. Adjacent pleural thickening measured 3.5 x 2.1 cm. Also noted was increase in size of a left upper lobe pulmonary nodule measuring 1.4 cm and a right upper lobe nodule measuring 1.7 cm. A spiculated right hilar nodule measured 1.7 cm. There was increasing lymphoid tissue noted in the hilar regions bilaterally, the largest on the right measuring 10 mm. There is no definite metastatic disease or adenopathy in the abdomen/pelvis. He underwent right lower lobe lung mass CT guided core biopsy on August 05, 2020. 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 He did have Caris testing performed on a lower lobe, lung collected on May 05, 2020. It was reported as ALK negative; BRAF mutation not detected; EGFR pathogenic variant exon 20/ [id number]. PD-L1 was negative. he did have high tumor mutational burden with 12 mutations. It also reported TP53 pathogenic variant exon 8/p. [id number]. MSI was indeterminate. Mr. Zurita had follow-up CT of the chest with contrast on July 07, 2020. It reported significant interval progression of disease compared to prior exams. There was marked interval enlargement of the right lower lobe pulmonary mass measuring 3.3 x 3.6 with surrounding new satellite nodules and nodular pleural thickening. Progressed right upper lobe nodule with pleural thickening measuring 2.0 x 2.0 cm. New right middle lobe subpleural nodules with the largest measuring 2.6 x 1.6 cm along the diaphragm. There is progressed right hilar masslike lymphadenopathy measuring 1.4 x 2.3 cm. There is a cavitary nodule left upper lobe that appears stable and moderate chronic emphysematous changes. 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 Mr. Zurita has been offered palliative immunotherapy with pembrolizumab. He began his first cycle on July 19, 2020. Plan: 1. Proceed with cycle 2 pembrolizumab. 2. We will have him try hydrocodone 03/12/2025 1 or 2 tablets every 4-6 hours as needed pain. He indicates he has tried them in the past and had no problems with them. 3. Labs from today were reviewed in detail and discussed with Mr. Zurita and a copy was given to him. WBC 10.8, hemoglobin 10.9, platelets 46,000 ANC is 8300 creatinine 0.8 LFTs are normal random glucose was 111 potassium was 3.8. His TSH was not performed today. It was normal on July 19 at 1.49. 4. Mr. Zurita has been instructed to call us if his pain is not improving with this treatment or the hydrocodone is not controlling his pain. We may need to repeat CT of the abdomen and pelvis to determine the etiology of his pain. I suspect that he is having a lot of pain related to the extensive disease as his right lower lobe pulmonary nodule has increased on last CT scan in June. There were also new surrounding satellite nodules and nodular pleural thickening along with new right middle lobe subpleural nodules measuring ring 2.6 x 1.6 cm???the largest; there also progressed right hilar masslike lymphadenopathy measuring 1.4 x 2.3 cm. 5. We will see him back in 3 weeks with CBC CMP and TSH. Again he has been encouraged to contact us in the interim if his pain is not improving or if he has any new symptoms or concerns. Signed By: Nohelia Pringle-, AOCNP Jus Castano MD <<Signature on File>>
== END 2020-08-09 05:59 | disposition home or self-care (01) ==
PROVIDERS: PCP Emergency Medicine Emergency Medical Services; Visit Provider Nurse Practitioner
DX: Z51.12 Encounter for antineoplastic immunotherapy (principal); C83.38 Diffuse large B-cell lymphoma, lymph nodes of multiple sites; C34.11 Malignant neoplasm of upper lobe, right bronchus or lung; C34.31 Malignant neoplasm of lower lobe, right bronchus or lung; D69.59 Other secondary thrombocytopenia; D70.1 Agranulocytosis secondary to cancer chemotherapy; T45.1X5A Adverse effect of antineoplastic and immunosuppressive drugs, initial encounter; F17.210 Nicotine dependence, cigarettes, uncomplicated
CPT/HCPCS: 80053; 85025; 96413; 99214; J7050; J9271

== ENCOUNTER 2020-08-30 06:07 | Outpatient (CLI) | payer OTHER, SELFPAY ==
[2020-08-30 08:31] LABS: Basophils # 0.1 10^3/uL (0.0-0.1); Basophils % 0.9 %; Eosinophils # 0.5 10^3/uL (0.0-0.8); Eosinophils % 4.3 %; Hematocrit 34.2 % (42.0-52.0); Hemoglobin 10.4 g/dL (11.7-16.6); Lymphocytes # 1.4 10^3/uL (0.8-4.8); Lymphocytes % 12.9 %; Mean Corpuscular HGB Conc 30.4 g/dL (30.0-36.0); Mean Corpuscular Hemoglobin 26.1 pg (28.0-34.0); Mean Corpuscular Volume 85.9 fL (80-94); Mean Platelet Volume 9.2 fL (7.4-10.4); Monocytes # 1.2 10^3/uL (0.2-0.9); Monocytes % 11.1 %; Neutrophils # 7.34 10^3/uL (1.8-7.7); Neutrophils % 69.8 %; Nucleated Red Blood Cells % 0 %; Platelet Count 427 10^3/cmm (130-400); Red Blood Count 3.98 10^6/uL (4.1-5.3); Red Cell Distribution Width 14.3 % (12.1-15.1); White Blood Count 10.5 10^3/uL (4.0-10.0)
[2020-08-30 08:59] LABS: Alanine Aminotransferase 7 U/L (0-41); Albumin Level 3.4 g/dL (3.5-5.2); Alkaline Phosphatase 115 IU/L (40-130); Anion Gap 12.8 (5-19); Aspartate Amino Transferase 12 U/L (0-40); Blood Urea Nitrogen 16 mg/dL (8-23); Calcium 9.1 mg/dL (8.5-10.5); Carbon Dioxide 29 mmol/L (22-29); Chloride 101 mmol/L (98-107); Globulin 2.5 g/dL (1.3-4.6); Glucose 116 mg/dL (65-115); Osmolality Calculated 290 mOsm/kg (285-295); Potassium 3.8 mmol/L (3.5-5.1); Sodium 139 mmol/L (136-145); Thyroid Stimulating Hormone 1.27 uIU/mL (0.27-4.20); Total Bilirubin 0.2 mg/dL (0.15-1.2); Total Protein 5.9 g/dL (6.6-8.7)
--- NOTE | 2020-09-03 10:10 | ONC FU_ITS ---
Dr. Castano Patient Follow-Up Note Patient: Armando Zurita Unit #: [id number]: 1945 Dicatated By: Jus Castano M.D.Date of Visit:Aug 30, 2020 Onc Med Follow-up/Prog Note Chief Complaint: Chronic lymphocytic leukemia/transformed lymphoma and lung cancer. 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 He also has been treated for nonsmall cell cancer of the right lung. He had known chronic lymphocytic leukemia, initially diagnosed in 2001. He had mostly been followed through the [place]. He had early stage disease, and he had been monitored on observation. I had seen him initially on 01/09/2016 because of increasing lymphocytosis and peripheral lymphadenopathy. The most significant area of adenopathy was in the right side of the neck. A contrast-enhanced neck CT on 01/01/2016 showed extensive multilevel cervical lymphadenopathy and to a lesser extent mediastinal and hilar lymphadenopathy. The largest interventional lymph node appeared to be a right anterior cervical node at level 3 measuring about 5.7 cm in diameter. It was associated with displacement of the right parotid gland and near complete effacement of the right internal jugular vein. A left-sided level 3 cervical node measured 3.1 cm and a left-sided level 4 supraclavicular lymph node measured 3.6 cm. His subsequent evaluation included staging CT scans of the chest/abdomen/pelvis on 01/30/2016. These showed significant, generalized lymphadenopathy and mild splenomegaly. Also noted were subcentimeter pulmonary nodules of undetermined significance. He underwent incisional biopsy of the right neck mass on 01/31/2016. Pathology was consistent with diffuse large B-cell lymphoma, germinal center subtype with high-grade features. Bone marrow aspiration/biopsy on 02/09/2016 did show evidence of chronic lymphocytic leukemia, but no evidence of involvement with the diffuse large B-cell lymphoma. He initiated a course of treatment with R-CHOP chemotherapy on 02/14/2016. His baseline echocardiogram showed adequate LV function with estimated ejection fraction at 55%. His day 1 treatment was complicated by a hypersensitivity reaction to the rituximab, significant enough that he did require treatment with epinephrine. As such, the rituximab infusion was not completed, but he was able to return the following day and complete the CHOP portion of the treatment. The rituximab was re-introduced with the second cycle, and with premedication he tolerated it well. He completed his 6th cycle of treatment on 06/05/2016. Restaging CT scan of the chest, abdomen, and pelvis on 07/01/2016 showed moderate improvement in lymphadenopathy throughout the chest, abdomen and pelvis since the prior study. There were no new lymph nodes or progression of adenopathy noted. Chest CT performed on 09/03/2016 showed enlarging superior segment right lower lobe lung nodule suspicious for primary lung neoplasm. On 10/28/2016 he underwent right lower lobectomy. Pathology showed grade 2/4 infiltrating adenocarcinoma measuring 1.5 x 1.4 cm. The bronchial margin of resection was free by 4 cm. The pleural surface was free by 0.2 cm. There was no involvement in 4 hilar lymph nodes. His pathologic stage thus was IA (T1a, N0, M0). Surveillance CT scans of the chest, abdomen, and pelvis on 05/22/2017 showed a spiculated pleural-based nodule in the right upper lobe measuring 8 mm and an additional nodule measuring 6 mm in the medial right upper lobe. Both of these appear to be new from previous studies. Also noted were new tree-in-bud airspace abnormalities in the right upper lobe and right middle lobe and there was a possible 3 mm nodule in the left lower lobe. Findings were felt to be consistent either with infectious process or early metastatic disease. Also noted was a slight increase in the size of mediastinal and hilar lymph nodes compared to August 2016, with the largest node at the left hilum measuring 12 mm. He continued observation/expectant management. A repeat chest CT on 08/22/2017 showed moderate improvement in the aeration throughout both lungs compared to the study from May. A 7 mm right upper lobe subpleural nodule appeared stable. There was near complete resolution of the parenchymal nodule in the right upper lobe. There was a small persistent right pleural effusion. He continued on observation/expectant management. His surveillance CT scans of the chest, abdomen, and pelvis on 01/30/2018 showed increase in the right apical spiculated pulmonary nodule, measuring 14 x 8 mm compared to 7 mm on the prior study. There was interval development of necrotic right hilar lymphadenopathy measuring 2.4 x 1.7 cm. A 9 mm left infrahilar lymph node and a prevascular 12 mm lymph node appeared unchanged. There were new bilateral lower lung zone tree-in-bud nodular opacities, favoring infection or postinflammatory change. Retroperitoneal and inguinal lymph nodes measuring 1-2 cm appeared unchanged, as did additional inguinal, peritoneal, and mesenteric subcentimeter lymph nodes. He had further evaluation with PET/CT on 02/07/2018. It showed a 1.3 cm right lung apical nodule with SUV 4.5, new from the prior CT and suspicious for recurrence. A hypermetabolic superior right hilar lymph node also was consistent with malignancy, SUV 10.6. There were no other areas of significant FDG uptake. He was referred to Dr. Cristian Wong in [place]. He underwent bronchoscopy with EBUS on 03/13/2018. 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 FNA of a station 7 lymph node showed no malignancy. FNA of a station 4R lymph node was insufficient to exclude metastatic disease. He was referred to Dr. Glass and it was recommended that he undergo SBRT to the right upper lobe lesion followed by chemoradiation to the hilar lesion. He completed the SBRT on 04/07/2018 to a total dose of 4800 cGy. He began radiation to the hilar lesion, concurrently with weekly carboplatin/Taxol chemotherapy on 04/09/2018. He had no significant toxicity with his initial chemotherapy infusion, and he received his 2nd infusion of carbo/Taxol on 04/16/2018. His week 3 treatment was delayed 4 days due to a COPD exacerbation, but those symptoms did improve on treatment with Levaquin and prednisone. He was then able to continue his further chemotherapy on schedule. He received his 6th and final infusion of carboplatin/Taxol on 05/18/2018. He completed radiation on 05/27/2018 to a total dose of [address] on 06/30/2018 showed residual spiculated nodule in the right upper lobe measuring 11 mm, slightly smaller from the previous study. Right hilar necrotic lymphadenopathy also was noted to have improved, measuring 12 mm. Previously described pulmonary infiltrates in the right upper lobe were noted to have resolved. There were no other significant changes. Repeat chest CT on 10/05/2018 showed stable spiculated nodule in the right upper lobe measuring 10 x 6 mm. The central left upper lobe nodule measuring 7.5 mm appeared slightly more consolidated. Numerous subcentimeter retroperitoneal lymph nodes also appeared stable. Intermediate hilar lymph nodes also appeared stable. His chest CT on 01/07/2019 showed stable appearance of the right apical spiculated nodule measuring 11 x 7 mm in the left upper lobe noncalcified nodule measuring 7-8 mm. Incompletely visualized retroperitoneal subcentimeter lymph nodes also appeared stable. Overall, there was no evidence of disease progression in the chest. He continued on observation/expectant management. His other medical illnesses include hypertension, COPD, GERD, degenerative arthritis, and peripheral neuropathy. His only prior surgery was a cholecystectomy. He has a 60 year history of smoking, previously in excess of 2 packs of cigarettes daily. He continues to smoke 1 pack per day. INTERIM HISTORY: Repeat CT scans on 07/19/2019 showed spiculated right upper lobe mass with increased pleural thickening, measuring approximately 2.9 x 1.5 CM. There was progression of a noncalcified nodule in the left upper lobe measuring 12 mm. A new noncalcified spiculated nodule was noted in the right hilum measuring 9 mm. The abdomen/pelvis showed stable prominent periaortic and retroperitoneal lymph nodes, the largest measuring approximately 9 mm. Prominent lymph nodes along the mesenteric root appeared unchanged. Enlarged bilateral inguinal lymph nodes were noted to have shown interval progression since 10/05/2018, with the largest right inguinal lymph node measuring 2.1 x 1.9 cm. A restaging PET/CT on 07/24/2019 showed FDG avid right apical pulmonary nodule measuring 1.4 x 2.1 cm, SUV 5.4, consistent with disease progression. A right hilar lymph node showed decreased FDG avidity, SUV 5.4 compared to 10.6 on the previous study. A new left upper lobe nodule measuring 1.2 cm had SUV 3.2, consistent with new metastatic disease. A 9 mm right lower lobe nodule was also noted to be FDG positive and suspicious for metastatic disease. A 2.0 cm right femoral lymph node had elevated SUV of 4.9, suspicious for recurrent lymphoma. Other scattered mesenteric and pelvic nodes appeared unchanged. After review of the CT scans with the radiologist, it appeared that the pulmonary nodules were not accessible for biopsy. He ultimately was referred to Dr. Almendarez for biopsy of the right inguinal lymph node. The procedure was done on 10/12/2019 and pathology did confirm recurrent diffuse large B-cell lymphoma, germinal center subtype. A repeat PET/CT on 11/13/2019 showed unchange in right apical pulmonary nodule with SUV 7.9 compared to 5.4 on the prior study. Mild uptake in a right hilar lymph node was unchanged. A left upper pulmonary nodule had increased in size from 1.2 cm to 1.8 cm with SUV increased from 2.7 to 3.2, and a right lower lobe nodule measured 1.3 cm with SUV 6.9, consistent with progression. There was residual mass in the right inguinal area measuring 5.1 x 5.9 cm with SUV 12.8, strongly consistent with lymphoma. Multiple other FDG positive nodes were present in the right femoral and external iliac territories, including a right external iliac node measuring 6.4 x 4.2 cm with SUV 10.1. There were additional FDG positive nodes in the right common iliac and bilateral periaortic territories, consistent with lymphoma. Prominent mesenteric nodes did not appear significantly changed. Due to his underlying COPD and multiple malignancies, he did not appear to be eligible for autologous stem cell transplant. As such, he began a course of salvage chemotherapy with R-gem ox, cycle 1 day 11/16/2019. He had some vomiting with his cycle 1 day 2 treatment, lasting just 1 day. He otherwise tolerated it well. He continued with cycle 2 on 12/01/2019, with cycle 3 on 12/14/2019, and with cycle 4 on 12/28/2019. Restaging PET/CT on 01/08/2020 showed greatly improved retroperitoneal and pelvic adenopathy. The dominant right inguinal lymph node measured 2.8 x 1.0 cm and was noted to be FDG negative. Other pelvic, retroperitoneal, and mesenteric nodes demonstrated similar improvement. The right apical lung lesion was unchanged and had stable SUV of 7.1. The left upper lobe pulmonary nodule showed improved uptake with SUV 1.5 and was stable in size at 1.7 cm. The central right lower lobe nodule showed decreased SUV to 4.0 from 6.0. Other scattered nodes appeared stable. He continued with cycle 5 of R-gem ox on 01/11/2020 and with cycle 6 on 01/25/2020. Restaging CT scans of the chest, abdomen, and pelvis on 04/20/2020 showed significant progression of neoplastic disease within the chest with increased pleural thickening and contiguous spiculated nodule in the right apex measuring 1.3 x 1.8 cm. Adjacent pleural thickening measured 3.5 x 2.1 cm. Also noted was increase in size of a left upper lobe pulmonary nodule measuring 1.4 cm and a right upper lobe nodule measuring 1.7 cm. A spiculated right hilar nodule measured 1.7 cm. There was increasing lymphoid tissue noted in the hilar regions bilaterally, the largest on the right measuring 10 mm. There is no definite metastatic disease or adenopathy in the abdomen/pelvis. Needle biopsy of the right lower lobe lung mass on 05/05/2020 showed poorly differentiated large cell carcinoma. Immunohistochemical stains were nonspecific. His next generation sequencing study showed an EGFR mutation involving exon 20. There were no targetable mutations identified. With that finding, he was recommended to begin immunotherapy as a second line treatment. He began cycle 1 of pembrolizumab on 07/19/2020. He tolerated well and he continued with cycle 2 on 08/09/2020. He is seen for a scheduled visit. He has not been feeling good generally. He does not have much energy, and his activity is limited. ECOG score is 2. Appetite is been okay. He has not had fever. He did have sweating one night recently. He has developed some new sharp pain under his right lower rib cage. He says it is there all the time. His breathing is not good. He has cough productive of white sputum. He has no GI or complaints. He has no other joint or bone pain. He does not complain of headache or dizziness. He has some numbness on the tips of his fingers. Medications: Albuterol Sulfate Nebulization solution Inhalation, Lasix 1 Tablet (of 40 mg) Oral daily, Lisinopril 0.5 Tablet (of 40 mg) Oral daily, Omeprazole 1 (20 mg) Capsule Delayed Release Oral daily, Rosuvastatin Calcium 1 Tablet (of 5 mg) Tablet Oral daily, Spiriva Respimat Aerosol, solution Inhalation Allergies: Seafood (crab legs) Review of Systems: Constitutional - He has not have much energy, and his activity is limited. Appetite has been okay. He has not had fever. He did have significant sweating one night. ECOG score is 2, ENMT - No sinus congestion/drainage. No mouth sores. No sore throat or difficulty swallowing, Hematologic/Lymphatic - He bruises very easily, Respiratory - His breathing has not been good. He is more short of breath. He has cough productive of white sputum. No pleuritic pain or hemoptysis, Cardiovascular - No angina pain. No palpitations, Gastrointestinal - No nausea or vomiting. No heartburn or acid reflux. No diarrhea or constipation. No blood in the stool or black stools, Genitourinary (M) - No dysuria or hematuria. No urinary frequency. No urgency or incontinence, Musculoskeletal - No joint or bone pain, Integumentary - No skin rash, Neurologic - No headache or dizziness. He has numbness on the tips of his fingers. No other focal neurologic symptoms, Psychiatric - No anxiety or depression. No insomnia. Vital Signs: Performed on Aug 30, 2020 10:06 Height - 71.00 in Weight - 189.4 lbs (HIGH) BSA - 2.06 sq.m BMI - 26.42 Temperature - 98.6 F Pulse - 94 /min Respiration - 24 /min BP - 129/70 mm(hg) O2 Sat - 97 % Pain - 4 Physical Examination: Constitutional - He appears somewhat weak generally, Eyes - Sclerae nonicteric. Conjunctivae clear, ENMT - No lesions noted in the oral cavity, Hematologic/Lymphatic - No cervical, clavicular, or axillary adenopathy noted, Respiratory - Lungs sound clear with diminished air movement bilaterally, Cardiovascular - Heart rhythm is regular. There is no murmur, gallop, or rub noted, Abdomen - Soft. Liver and spleen are not enlarged. There is no abdominal mass or ascites noted. There is no residual inguinal adenopath, Extremities - Mild lower extremity edema, right worse than left, Neurologic - No focal neurologic deficits noted. Lab/Imaging: Test performed on Aug 30, 2020 08:20 Sodium 139 mmol/L TSH 1.27 uIU/mL Potassium 3.8 mmol/L Chloride 101 mmol/L CO2 29 mmol/L Anion Gap 12.8 BUN 16 mg/dL Creatinine 0.7 mg/dL Cr Clearance (Est) 112.50 mL/min Glucose 116 mg/dL Osmolality - Calculated 290 mOsm/kg Calcium 9.1 mg/dL Protein, Total 5.9 g/dL Albumin 3.4 g/dL Globulin 2.5 g/dL Bilirubin, Total 0.2 mg/dL ALT (SGPT) 7 U/L AST (SGOT) 12 U/L Alkaline Phosphatase 115 IU/L WBC 10.5 10 3/uL RBC 3.98 10 6/uL HGB 10.4 g/dL HCT 34.2 % MCV 85.9 fL MCH 26.1 pg MCHC 30.4 g/dL RDW 14.3 % Platelet Count 427 10 3/cmm MPV 9.2 fL Neutrophils 7.34 10 3/uL Lymphocytes 1.4 10 3/uL Monocytes 1.2 10 3/uL Eosinophils 0.5 10 3/uL Basophils 0.1 10 3/uL Neutrophil % 69.8 % Lymphocyte % 12.9 % Monocyte % 11.1 % Eosinophil % 4.3 % Basophils % 0.9 % NRBC % 0 % Chest x-ray shows new infiltrate in the right mid lung zone, consistent with pneumonia. Impression: 1. Patient with chronic leukocytic leukemia, initially diagnosed in 2001. He initially had early stage disease and he was followed on observation. In January 2016 he presented with extensive and in some areas bulky lymphadenopathy, and he was confirmed by lymph node biopsy to have transformed diffuse large B cell lymphoma. By clinical evaluation, his disease was stage IIIA. His international prognostic index score was 2, intermediate risk. 2. He was treated with 6 cycles of R-CHOP chemotherapy from 02/14/2016 thru 06/05/2016. He experienced treatment-related fatigue and myelosuppression, including grade 2 anemia and grade 4 neutropenia. He also had some worsening of peripheral neuropathy, mainly in the left hand, where it was grade 3. Restaging CT scans on 07/01/2016 showed significant improvement in the lymphadenopathy, though not complete resolution. Three noncalcified 5 mm pulmonary nodules in the right lung were noted to be stable. 3. His follow-up chest CT in August 2016 showed enlargement of a right lower lobe pulmonary nodule. He underwent right lower lobectomy on 10/28/2016. Pathology confirmed grade 2/4 infiltrating adenocarcinoma, stage IA (T1a, N0, M0). His other medical illnesses include: 2. COPD. 3. Hypertension. 4. GERD. 5. Peripheral neuropathy. This appears to be idiopathic. 6. Nicotine dependence (cigarettes). During followup his initial surveillance CT scans had shown no evidence of recurrence of the lung cancer or lymphoma. His surveillance CT scans in January 2018 showed slight increase in size of a right apical pulmonary nodule measuring 14 x 8 mm and interval development of right hilar necrotic lymphadenopathy measuring 2.4 x 1.7 cm. On further evaluation with PET/CT, both lesions were FDG positive, suspicious for a new non-small cell lung cancer. He underwent bronchoscopy with EBUS on 03/13/2018. The right apical lesion was not accessible. 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 FNA of a station 7 lymph node showed no malignancy. As such, he had a new confirmed non-small cell carcinoma involving the upper lobe of the right lung. Based on the presence of a second tumor nodule within the right upper lobe, his disease was stage IIB (T3, N0, M0). He was given SBRT to the right upper lobe lesion, completed on 04/07/2018 to a total dose of 4800 cGy. He then began radiation to the right hilar lesion, currently with weekly carboplatin/Taxol chemotherapy on 04/09/2018. He completed the first 2 weekly chemotherapy infusions with no significant toxicity. His week 3 treatment was delayed 4 days due to symptoms of COPD exacerbation, but those did improve after treatment with Levaquin and prednisone. He was then able to continue the remainder of his chemotherapy on schedule. He completed his sixth and final infusion of carboplatin/Taxol on 05/18/2018. He completed radiation on 05/27/2018, total dose 1600 cGy. Overall, he tolerated his treatment well. He appeared to have significant response by follow-up chest CT. During follow-up he had initially remained stable clinically with no obvious progression of the lung cancer. However, his repeat CT scans July 2019 showed some progression of lymphadenopathy as well as increased pleural thickening associated with the residual right upper lobe mass. His restaging PET/CT on 07/24/2019 showed progression of the right apical pulmonary nodule as well as suspected bilateral metastatic pulmonary nodules and an FDG avid right femoral lymph node which appeared suspicious for recurrent lymphoma. The pulmonary nodules did not appear to be accessible for biopsy. Right inguinal lymph node biopsy on 10/12/2019 confirmed recurrent diffuse large B-cell lymphoma, germinal center subtype. Restaging PET/CT on 11/13/2019 showed significant progression of lymphoma in the right inguinal/pelvic area. There was also progression of the right apical pulmonary nodule and an additional left upper lobe and right lower lobe pulmonary nodules. The pulmonary nodules had been deemed inaccessible for biopsy. On 11/16/2019 he began cycle 1 of salvage chemotherapy with R-gem ox. He had nausea/vomiting following his day 2 treatment, but it had resolved by the next day. He otherwise tolerated the chemotherapy well. He was then able to continue treatment at 2-week intervals. He began cycle 4 on 12/28/2019. His restaging PET/CT on 01/08/2020 showed significant improvement in the retroperitoneal and pelvic lymphadenopathy. The pulmonary nodules, which I have presumed to be non-small cell lung cancer, remained stable or showed slight improvement. He then continued with cycle 5 of R-gem ox on 01/11/2020 and with cycle 6 on 01/25/2020. Overall, he tolerated the treatment very well. His restaging CT scans on 04/20/2020 showed no residual adenopathy or other metastatic disease in the abdomen/pelvis, but there was evidence of disease progression in both lungs. 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 The immunohistochemical stains were nonspecific. 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 There were no targetable mutations identified. On 07/19/2020 he began immunotherapy with pembrolizumab as a second line treatment. He tolerated the initial infusion well and he continued with cycle 2 on 08/09/2020. He comes in now with new pain in his right lower chest area and increased shortness of breath. His chest x-ray shows increased infiltrate in the right mid lung zone, consistent with pneumonia. At this point it is uncertain whether or not this may be postobstructive. Plan: His treatment will be put on hold. He will be treated with Levaquin 750 mg daily for 7 days. He returns in 1 week with repeat chest x-ray. He will have further evaluation as indicated, depending on the findings. Signed By: Jus Castano M.D. <<Signature on File>>
== END 2020-08-30 06:08 | disposition home or self-care (01) ==
LOC: ONCMED 06:08
PROVIDERS: PCP Emergency Medicine Emergency Medical Services; Visit Provider Internal Medicine Medical Oncology
DX: C91.10 Chronic lymphocytic leukemia of B-cell type not having achieved remission (principal); C34.11 Malignant neoplasm of upper lobe, right bronchus or lung; C34.31 Malignant neoplasm of lower lobe, right bronchus or lung; J44.9 Chronic obstructive pulmonary disease, unspecified; I10 Essential (primary) hypertension; K21.9 Gastro-esophageal reflux disease without esophagitis; G60.8 Other hereditary and idiopathic neuropathies; F17.210 Nicotine dependence, cigarettes, uncomplicated; D69.59 Other secondary thrombocytopenia; D70.1 Agranulocytosis secondary to cancer chemotherapy; T45.1X5A Adverse effect of antineoplastic and immunosuppressive drugs, initial encounter; Z92.21 Personal history of antineoplastic chemotherapy; Z79.899 Other long term (current) drug therapy
CPT/HCPCS: 36591; 80053; 84443; 85025; 99214

== ENCOUNTER 2020-08-30 10:50 | Outpatient (CLI) | payer OTHER, SELFPAY ==
--- NOTE | 2020-08-30 10:55 | XRR_ITS ---
PROCEDURE INFORMATION: Exam: XR Chest, 2 Views Exam date and time: 08/30/2020 11:00 AM Age: 75 years old Clinical indication: Shortness of breath; Chest pain; Prior surgery; Surgery type: Lobectomy; Additional info: Lung cancer, pain right lower anterior chest, short of breat TECHNIQUE: Imaging protocol: XR of the chest Views: 2 views. COMPARISON: CT chest w con* [id number] 07/07/2020 10:36 AM FINDINGS: Lungs: There is prominent consolidation of the right perihilar region and mid lung zone that extends into the right upper lobe. This appears to be superimposed upon partially obscured nodular densities in this area which are seen on previous studies. There is consistent with a pneumonia. The pleural based spiculated nodule in the right apex is unchanged. Emphysematous changes are present in the right base. The left lung is grossly clear. 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 No pneumothorax. Heart/Mediastinum: Unremarkable. No cardiomegaly. Vasculature: A MediPort catheter projects in the SVC. Bones/joints: Unremarkable. XR/XR chest 2V* [id number] IMPRESSION: 1. Prominent right perihilar and right upper lobe consolidation consistent with pneumonia. 2. Previously seen nodularity in the right mid lung is obscured by the consolidation. The pleural based right apical nodule is stable.
== END 2020-08-30 10:51 | disposition home or self-care (01) ==
PROVIDERS: PCP Emergency Medicine Emergency Medical Services; Visit Provider Internal Medicine Medical Oncology
DX: C34.11 Malignant neoplasm of upper lobe, right bronchus or lung (principal); R07.9 Chest pain, unspecified; R06.02 Shortness of breath
CPT/HCPCS: 71046

== ENCOUNTER 2020-09-05 10:43 | Outpatient (CLI) | payer OTHER, SELFPAY ==
--- NOTE | 2020-09-05 11:11 | XR_ITS ---
WS: [id number] Exam: XR chest 2V* [id number] Date/Time of Exam: 09/05/2020 11:17 AM Reason For Exam: LUNG CANCER Findings: Comparison 08/30/2020. Large consolidated right hilar density is noted essentially unchanged in appearance. There is diffuse infiltrate extending into the right upper lobe also unchanged. Nodular pleural thickening in the sup erior right pleural cavity. The left lung remains clear. Right posterior pleural effusion. Normal hea rt size. The superior mediastinum is not widened. A left subclavian port ends in the lower one third of the SVC. Several surgical clips at the right hilum. XR/XR chest 2V* [id number] IMPRESSION: 1. Large right hilar masslike area of consolidation showing little change since prior study. Associated infiltrate in the right lung may represent postobstruc tive pneumonia. Consolidation in the superior segment of the right lower lobe n oted. 2. Right posterior pleural effusion. 3. Left subclavian port appears to be in satisfactory position.
== END 2020-09-05 10:44 | disposition home or self-care (01) ==
LOC: RAD 11:09
PROVIDERS: PCP Emergency Medicine Emergency Medical Services; Visit Provider Internal Medicine Medical Oncology
DX: C34.11 Malignant neoplasm of upper lobe, right bronchus or lung (principal); C34.31 Malignant neoplasm of lower lobe, right bronchus or lung; J90 Pleural effusion, not elsewhere classified
CPT/HCPCS: 71046

== ENCOUNTER 2020-09-07 05:43 | Outpatient (CLI) | payer OTHER, SELFPAY ==
[2020-09-07 12:02] LABS: Basophils # 0.1 10^3/uL (0.0-0.1); Basophils % 0.6 %; Eosinophils # 0.2 10^3/uL (0.0-0.8); Hematocrit 35.4 % (42.0-52.0); Hemoglobin 10.8 g/dL (11.7-16.6); Lymphocytes # 1.1 10^3/uL (0.8-4.8); Lymphocytes % 7.4 %; Mean Corpuscular HGB Conc 30.5 g/dL (30.0-36.0); Mean Corpuscular Hemoglobin 25.8 pg (28.0-34.0); Mean Corpuscular Volume 84.7 fL (80-94); Monocytes # 1.7 10^3/uL (0.2-0.9); Monocytes % 11.2 %; Neutrophils # 12.03 10^3/uL (1.8-7.7); Neutrophils % 79.1 %; Nucleated Red Blood Cells % 0 %; Platelet Count 388 10^3/cmm (130-400); Red Blood Count 4.18 10^6/uL (4.1-5.3); Red Cell Distribution Width 14.6 % (12.1-15.1); White Blood Count 15.2 10^3/uL (4.0-10.0)
[2020-09-07 12:15] LABS: Alanine Aminotransferase 7 U/L (0-41); Albumin Level 3.3 g/dL (3.5-5.2); Alkaline Phosphatase 104 IU/L (40-130); Anion Gap 14.8 (5-19); Aspartate Amino Transferase 14 U/L (0-40); Blood Urea Nitrogen 16 mg/dL (8-23); Calcium 9.4 mg/dL (8.5-10.5); Carbon Dioxide 28 mmol/L (22-29); Chloride 95 mmol/L (98-107); Globulin 2.8 g/dL (1.3-4.6); Glucose 122 mg/dL (65-115); Osmolality Calculated 280 mOsm/kg (285-295); Potassium 3.8 mmol/L (3.5-5.1); Sodium 134 mmol/L (136-145); Total Bilirubin 0.4 mg/dL (0.15-1.2); Total Protein 6.1 g/dL (6.6-8.7)
--- NOTE | 2020-09-07 14:37 | ONC FU_ITS ---
[facility] Patient Note Patient: Armando Zurita Unit #: [id number]: [id number] Dictated By: Nohelia PringleDate of Visit: Sep 07, 2020 Onc MED Follow-Up/Prog Note Chief Complaint: Chronic lymphocytic leukemia/transformed lymphoma and lung cancer. 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 He also has been treated for nonsmall cell cancer of the right lung. He had known chronic lymphocytic leukemia, initially diagnosed in 2001. He had mostly been followed through the [place]. He had early stage disease, and he had been monitored on observation. Dr Castano had seen him initially on 01/09/2016 because of increasing lymphocytosis and peripheral lymphadenopathy. The most significant area of adenopathy was in the right side of the neck. A contrast-enhanced neck CT on 01/01/2016 showed extensive multilevel cervical lymphadenopathy and to a lesser extent mediastinal and hilar lymphadenopathy. The largest interventional lymph node appeared to be a right anterior cervical node at level 3 measuring about 5.7 cm in diameter. It was associated with displacement of the right parotid gland and near complete effacement of the right internal jugular vein. A left-sided level 3 cervical node measured 3.1 cm and a left-sided level 4 supraclavicular lymph node measured 3.6 cm. His subsequent evaluation included staging CT scans of the chest/abdomen/pelvis on 01/30/2016. These showed significant, generalized lymphadenopathy and mild splenomegaly. Also noted were subcentimeter pulmonary nodules of undetermined significance. He underwent incisional biopsy of the right neck mass on 01/31/2016. Pathology was consistent with diffuse large B-cell lymphoma, germinal center subtype with high-grade features. Bone marrow aspiration/biopsy on 02/09/2016 did show evidence of chronic lymphocytic leukemia, but no evidence of involvement with the diffuse large B-cell lymphoma. He initiated a course of treatment with R-CHOP chemotherapy on 02/14/2016. His baseline echocardiogram showed adequate LV function with estimated ejection fraction at 55%. His day 1 treatment was complicated by a hypersensitivity reaction to the rituximab, significant enough that he did require treatment with epinephrine. As such, the rituximab infusion was not completed, but he was able to return the following day and complete the CHOP portion of the treatment. The rituximab was re-introduced with the second cycle, and with premedication he tolerated it well. He completed his 6th cycle of treatment on 06/05/2016. Restaging CT scan of the chest, abdomen, and pelvis on 07/01/2016 showed moderate improvement in lymphadenopathy throughout the chest, abdomen and pelvis since the prior study. There were no new lymph nodes or progression of adenopathy noted. Chest CT performed on 09/03/2016 showed enlarging superior segment right lower lobe lung nodule suspicious for primary lung neoplasm. On 10/28/2016 he underwent right lower lobectomy. Pathology showed grade 2/4 infiltrating adenocarcinoma measuring 1.5 x 1.4 cm. The bronchial margin of resection was free by 4 cm. The pleural surface was free by 0.2 cm. There was no involvement in 4 hilar lymph nodes. His pathologic stage thus was IA (T1a, N0, M0). Surveillance CT scans of the chest, abdomen, and pelvis on 05/22/2017 showed a spiculated pleural-based nodule in the right upper lobe measuring 8 mm and an additional nodule measuring 6 mm in the medial right upper lobe. Both of these appear to be new from previous studies. Also noted were new tree-in-bud airspace abnormalities in the right upper lobe and right middle lobe and there was a possible 3 mm nodule in the left lower lobe. Findings were felt to be consistent either with infectious process or early metastatic disease. Also noted was a slight increase in the size of mediastinal and hilar lymph nodes compared to August 2016, with the largest node at the left hilum measuring 12 mm. He continued observation/expectant management. A repeat chest CT on 08/22/2017 showed moderate improvement in the aeration throughout both lungs compared to the study from May. A 7 mm right upper lobe subpleural nodule appeared stable. There was near complete resolution of the parenchymal nodule in the right upper lobe. There was a small persistent right pleural effusion. He continued on observation/expectant management. His surveillance CT scans of the chest, abdomen, and pelvis on 01/30/2018 showed increase in the right apical spiculated pulmonary nodule, measuring 14 x 8 mm compared to 7 mm on the prior study. There was interval development of necrotic right hilar lymphadenopathy measuring 2.4 x 1.7 cm. A 9 mm left infrahilar lymph node and a prevascular 12 mm lymph node appeared unchanged. There were new bilateral lower lung zone tree-in-bud nodular opacities, favoring infection or postinflammatory change. Retroperitoneal and inguinal lymph nodes measuring 1-2 cm appeared unchanged, as did additional inguinal, peritoneal, and mesenteric subcentimeter lymph nodes. He had further evaluation with PET/CT on 02/07/2018. It showed a 1.3 cm right lung apical nodule with SUV 4.5, new from the prior CT and suspicious for recurrence. A hypermetabolic superior right hilar lymph node also was consistent with malignancy, SUV 10.6. There were no other areas of significant FDG uptake. He was referred to Dr. Cristian Wong in [place]. He underwent bronchoscopy with EBUS on 03/13/2018. 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 FNA of a station 7 lymph node showed no malignancy. FNA of a station 4R lymph node was insufficient to exclude metastatic disease. He was referred to Dr. Glass and it was recommended that he undergo SBRT to the right upper lobe lesion followed by chemoradiation to the hilar lesion. He completed the SBRT on 04/07/2018 to a total dose of 4800 cGy. He began radiation to the hilar lesion, concurrently with weekly carboplatin/Taxol chemotherapy on 04/09/2018. He had no significant toxicity with his initial chemotherapy infusion, and he received his 2nd infusion of carbo/Taxol on 04/16/2018. His week 3 treatment was delayed 4 days due to a COPD exacerbation, but those symptoms did improve on treatment with Levaquin and prednisone. He was then able to continue his further chemotherapy on schedule. He received his 6th and final infusion of carboplatin/Taxol on 05/18/2018. He completed radiation on 05/27/2018 to a total dose of [address] on 06/30/2018 showed residual spiculated nodule in the right upper lobe measuring 11 mm, slightly smaller from the previous study. Right hilar necrotic lymphadenopathy also was noted to have improved, measuring 12 mm. Previously described pulmonary infiltrates in the right upper lobe were noted to have resolved. There were no other significant changes. Repeat chest CT on 10/05/2018 showed stable spiculated nodule in the right upper lobe measuring 10 x 6 mm. The central left upper lobe nodule measuring 7.5 mm appeared slightly more consolidated. Numerous subcentimeter retroperitoneal lymph nodes also appeared stable. Intermediate hilar lymph nodes also appeared stable. His chest CT on 01/07/2019 showed stable appearance of the right apical spiculated nodule measuring 11 x 7 mm in the left upper lobe noncalcified nodule measuring 7-8 mm. Incompletely visualized retroperitoneal subcentimeter lymph nodes also appeared stable. Overall, there was no evidence of disease progression in the chest. He continued on observation/expectant management. His other medical illnesses include hypertension, COPD, GERD, degenerative arthritis, and peripheral neuropathy. His only prior surgery was a cholecystectomy. He has a 60 year history of smoking, previously in excess of 2 packs of cigarettes daily. He continues to smoke 1 pack per day. INTERIM HISTORY: Repeat CT scans on 07/19/2019 showed spiculated right upper lobe mass with increased pleural thickening, measuring approximately 2.9 x 1.5 CM. There was progression of a noncalcified nodule in the left upper lobe measuring 12 mm. A new noncalcified spiculated nodule was noted in the right hilum measuring 9 mm. The abdomen/pelvis showed stable prominent periaortic and retroperitoneal lymph nodes, the largest measuring approximately 9 mm. Prominent lymph nodes along the mesenteric root appeared unchanged. Enlarged bilateral inguinal lymph nodes were noted to have shown interval progression since 10/05/2018, with the largest right inguinal lymph node measuring 2.1 x 1.9 cm. A restaging PET/CT on 07/24/2019 showed FDG avid right apical pulmonary nodule measuring 1.4 x 2.1 cm, SUV 5.4, consistent with disease progression. A right hilar lymph node showed decreased FDG avidity, SUV 5.4 compared to 10.6 on the previous study. A new left upper lobe nodule measuring 1.2 cm had SUV 3.2, consistent with new metastatic disease. A 9 mm right lower lobe nodule was also noted to be FDG positive and suspicious for metastatic disease. A 2.0 cm right femoral lymph node had elevated SUV of 4.9, suspicious for recurrent lymphoma. Other scattered mesenteric and pelvic nodes appeared unchanged. After review of the CT scans with the radiologist, it appeared that the pulmonary nodules were not accessible for biopsy. He ultimately was referred to Dr. Almendarez for biopsy of the right inguinal lymph node. The procedure was done on 10/12/2019 and pathology did confirm recurrent diffuse large B-cell lymphoma, germinal center subtype. A repeat PET/CT on 11/13/2019 showed unchange in right apical pulmonary nodule with SUV 7.9 compared to 5.4 on the prior study. Mild uptake in a right hilar lymph node was unchanged. A left upper pulmonary nodule had increased in size from 1.2 cm to 1.8 cm with SUV increased from 2.7 to 3.2, and a right lower lobe nodule measured 1.3 cm with SUV 6.9, consistent with progression. There was residual mass in the right inguinal area measuring 5.1 x 5.9 cm with SUV 12.8, strongly consistent with lymphoma. Multiple other FDG positive nodes were present in the right femoral and external iliac territories, including a right external iliac node measuring 6.4 x 4.2 cm with SUV 10.1. There were additional FDG positive nodes in the right common iliac and bilateral periaortic territories, consistent with lymphoma. Prominent mesenteric nodes did not appear significantly changed. Due to his underlying COPD and multiple malignancies, he did not appear to be eligible for autologous stem cell transplant. As such, he began a course of salvage chemotherapy with R-gem ox, cycle 1 day 11/16/2019. He had some vomiting with his cycle 1 day 2 treatment, lasting just 1 day. He otherwise tolerated it well. He continued with cycle 2 on 12/01/2019, with cycle 3 on 12/14/2019, and with cycle 4 on 12/28/2019. Restaging PET/CT on 01/08/2020 showed greatly improved retroperitoneal and pelvic adenopathy. The dominant right inguinal lymph node measured 2.8 x 1.0 cm and was noted to be FDG negative. Other pelvic, retroperitoneal, and mesenteric nodes demonstrated similar improvement. The right apical lung lesion was unchanged and had stable SUV of 7.1. The left upper lobe pulmonary nodule showed improved uptake with SUV 1.5 and was stable in size at 1.7 cm. The central right lower lobe nodule showed decreased SUV to 4.0 from 6.0. Other scattered nodes appeared stable. He continued with cycle 5 of R-gem ox on 01/11/2020 and with cycle 6 on 01/25/2020. Restaging CT scans of the chest, abdomen, and pelvis on 04/20/2020 showed significant progression of neoplastic disease within the chest with increased pleural thickening and contiguous spiculated nodule in the right apex measuring 1.3 x 1.8 cm. Adjacent pleural thickening measured 3.5 x 2.1 cm. Also noted was increase in size of a left upper lobe pulmonary nodule measuring 1.4 cm and a right upper lobe nodule measuring 1.7 cm. A spiculated right hilar nodule measured 1.7 cm. There was increasing lymphoid tissue noted in the hilar regions bilaterally, the largest on the right measuring 10 mm. There is no definite metastatic disease or adenopathy in the abdomen/pelvis. Needle biopsy of the right lower lobe lung mass on 05/05/2020 showed poorly differentiated large cell carcinoma. Immunohistochemical stains were nonspecific. His next generation sequencing study showed an EGFR mutation involving exon 20. There were no targetable mutations identified. With that finding, he was recommended to begin immunotherapy as a second line treatment. He began cycle 1 of pembrolizumab on 07/19/2020. He tolerated well and he continued with cycle 2 on 08/09/2020. Mr. Zurita was seen for follow-up on August 30, 2020. He had had 2 doses of Keytruda (pembrolizumab) with the last one being on 08/09/2020. He presented at his followup appointment with a decline in his overall performance status and new sharp pain under his right lower rib cage. The chest x-ray reported increased infiltrate in the right mid lung zone, consistent with pneumonia. He treatment was placed on hold and he was given a 7 day course of Levaquin. He is here today for follow-up. He did have repeat chest x-ray on 1026 which showed no improvement. It reported large consolidated right hilar density which is unchanged in appearance. There is diffuse infiltrate extending to the right upper lobe also unchanged. He states his breathing is no better in the right upper quadrant pain is not going away. He states is relieved with the pain medication but comes back when the pain medication wears off. He denies any cough. He denies any new shortness of breath or orthopnea. He states his breathing is always hard but he does not think is any worse today than his last visit. He denies any fever or chills. He states it was not for the pain he would feel really good. He admits that his appetite kind of wax and wanes. He states some days good some days it is not. He denies any chest wall or anginal type pain. He denies any orthopnea. He does have chronic dyspnea but states it is the same as always for him. He denies any bowel or bladder problems at this point. He has completed the Levaquin 750 today. His ECOG is 2 due to the right upper quadrant pain. Past Medical History: Chronic obstructive pulmonary disease Degenerative arthritis Gastroesophageal reflux disease Hypertension Peripheral neuropathy Past Surgical History: Cataract excision Cholecystectomy Left sided port placement in 2016 - Right Lower Lobectomy in 2016 Bone marrow aspiration/biopsy in 2016 Incisional biopsy right neck mass in 2016 Allergies: Seafood (crab legs) Medications: Albuterol Sulfate Nebulization solution Inhalation Lasix 1 Tablet (of 40 mg) Oral daily Lisinopril 0.5 Tablet (of 40 mg) Oral daily Omeprazole 1 (20 mg) Capsule Delayed Release Oral daily Rosuvastatin Calcium 1 Tablet (of 5 mg) Tablet Oral daily Spiriva Respimat Aerosol, solution Inhalation Family History: Mr. Zurita's mother at age 75: lupus, and stroke. Mr. Zurita's father at age 76: [place]. Mr. Zurita has 1 brother who is : congestive heart failure. Father of heart attack age 76. His mother had lupus and of stroke at age 75. A brother at age 77 had a sudden following abdominal surgery. Social History: Mr. Zurita is and he is retired. He is a daily smoker who has smoked 1.0 pack/day for 0 years. He has no history of drinking. Mr. Zurita reports the following support systems: lives with spouse, significant other, family, or friends, lives in own house, supportive family/friends willing to assist with needs, and adequate transportation available for expected visits. His diet consists of regular meals. He indicates his activity level as: daily activities. He has been smoking for 60 years, previously in excess of 2 packs of cigarettes daily. He is currently smoking 1 pack per day. In the past he has tried nicotine patches, but unsuccessfully. He has had some alcohol use in the past, but it was never heavy. He has had no alcohol use for more than 6 years. Review Of Symptoms: Constitutional Denies fevers, chills, night sweats. Mild fatigue. Appetite comes and goes. Allergic/Immunologic No reactions. Eyes Denies significant visual changes. No diplopia. No amaurosis. ENMT Denies changes in hearing, sore throat, mouth sores, difficulty or changes in swallowing ability. Endocrine Denies hot flashes or night sweats. Hematologic/Lymphatic The patient denies any tender or palpable lymph nodes. Respiratory no change in breathing-RUQ/lower right rib area pain-see above Cardiovascular Denies anginal chest pain. Gastrointestinal Denies nausea, vomiting, diarrhea, heartburn, or constipation. Genitourinary (M) Denies hematuria, dysuria, increased frequency, urgency, hesitancy or incontinence. Musculoskeletal Denies joint pain, swelling or redness. No decreased range of motion. Integumentary Denies chronic rashes, inflammation, ulcerations or skin changes. Neurologic Denies headache. Psychiatric Denies insomnia, depression, anxiety. Vital Signs: Performed on Sep 07, 2020 13:24 Height - 71.00 in Weight - 192.6 lbs (HIGH) BSA - 2.08 sq.m BMI - 26.86 Temperature - 97.5 F (LOW) Pulse - 93 /min Respiration - 16 /min BP - 127/74 mm(hg) O2 Sat - 90 % (LOW) Pain - 8,2 - Ambulatory/capable of all self-care, unable to perform any work activities. Up and about more than 50% of waking hours. (ECOG) Physical Examination: Constitutional Alert, oriented, no acute distress. Skin pale/pink, warm and dry. Head Normocephalic; atraumatic. Eyes Conjunctivae and sclerae are clear and without icterus. Pupils are reactive and equal. Neck Supple without masses or thyromegaly. No jugular venous distension. Hematologic/Lymphatic No petechiae or purpura. No tender or palpable lymph nodes in the cervical, supraclavicular areas. Chest Chest is symmetric without chest wall deformities. Left venous access device insertion site is unremarkable.. Abdomen Non-tender, non-distended, no masses, ascites. RUQ/lower rib area pain that is pretty constant- sometimes it goes away for awhile but it comes back . Back/Spine Non-tender to palpation. Musculoskeletal normal range of motion without obvious weakness. Integumentary No rashes or lesions. Neurologic No sensory or motor deficits, normal cerebellar function, normal-slow- gait. Psychiatric Alert and oriented times three. Coherent speech. Verbalizes understanding of our discussions today. Laboratory:Test performed on Sep 07, 2020 11:25 Sodium 134 mmol/L Potassium 3.8 mmol/L Chloride 95 mmol/L CO2 28 mmol/L Anion Gap 14.8 BUN 16 mg/dL Creatinine 0.8 mg/dL Cr Clearance (Est) 100.1000 mL/min Glucose 122 mg/dL Osmolality - Calculated 280 mOsm/kg Calcium 9.4 mg/dL Protein, Total 6.1 g/dL Albumin 3.3 g/dL Globulin 2.8 g/dL Bilirubin, Total 0.4 mg/dL ALT (SGPT) 7 U/L AST (SGOT) 14 U/L Alkaline Phosphatase 104 IU/L WBC 15.2 10 3/uL RBC 4.18 10 6/uL HGB 10.8 g/dL HCT 35.4 % MCV 84.7 fL MCH 25.8 pg MCHC 30.5 g/dL RDW 14.6 % Platelet Count 388 10 3/cmm MPV 10.0 fL Neutrophils 12.03 10 3/uL Lymphocytes 1.1 10 3/uL Monocytes 1.7 10 3/uL Eosinophils 0.2 10 3/uL Basophils 0.1 10 3/uL Neutrophil % 79.1 % Lymphocyte % 7.4 % Monocyte % 11.2 % Eosinophil % 1.0 % Basophils % 0.6 % NRBC % 0 % Test performed on Aug 30, 2020 08:20 TSH 1.27 uIU/mL Test performed on May 05, 2020 08:15 PT 13.40 SECONDS INR 0.99 Impression: 1. Patient with chronic leukocytic leukemia, initially diagnosed in 2001. He initially had early stage disease and he was followed on observation. In January 2016 he presented with extensive and in some areas bulky lymphadenopathy, and he was confirmed by lymph node biopsy to have transformed diffuse large B cell lymphoma. By clinical evaluation, his disease was stage IIIA. His international prognostic index score was 2, intermediate risk. 2. He was treated with 6 cycles of R-CHOP chemotherapy from 02/14/2016 thru 06/05/2016. He experienced treatment-related fatigue and myelosuppression, including grade 2 anemia and grade 4 neutropenia. He also had some worsening of peripheral neuropathy, mainly in the left hand, where it was grade 3. Restaging CT scans on 07/01/2016 showed significant improvement in the lymphadenopathy, though not complete resolution. Three noncalcified 5 mm pulmonary nodules in the right lung were noted to be stable. 3. His follow-up chest CT in August 2016 showed enlargement of a right lower lobe pulmonary nodule. He underwent right lower lobectomy on 10/28/2016. Pathology confirmed grade 2/4 infiltrating adenocarcinoma, stage IA (T1a, N0, M0). His other medical illnesses include: 2. COPD. 3. Hypertension. 4. GERD. 5. Peripheral neuropathy. This appears to be idiopathic. 6. Nicotine dependence (cigarettes). During followup his initial surveillance CT scans had shown no evidence of recurrence of the lung cancer or lymphoma. His surveillance CT scans in January 2018 showed slight increase in size of a right apical pulmonary nodule measuring 14 x 8 mm and interval development of right hilar necrotic lymphadenopathy measuring 2.4 x 1.7 cm. On further evaluation with PET/CT, both lesions were FDG positive, suspicious for a new non-small cell lung cancer. He underwent bronchoscopy with EBUS on 03/13/2018. The right apical lesion was not accessible. 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 FNA of a station 7 lymph node showed no malignancy. As such, he had a new confirmed non-small cell carcinoma involving the upper lobe of the right lung. Based on the presence of a second tumor nodule within the right upper lobe, his disease was stage IIB (T3, N0, M0). He was given SBRT to the right upper lobe lesion, completed on 04/07/2018 to a total dose of 4800 cGy. He then began radiation to the right hilar lesion, currently with weekly carboplatin/Taxol chemotherapy on 04/09/2018. He completed the first 2 weekly chemotherapy infusions with no significant toxicity. His week 3 treatment was delayed 4 days due to symptoms of COPD exacerbation, but those did improve after treatment with Levaquin and prednisone. He was then able to continue the remainder of his chemotherapy on schedule. He completed his sixth and final infusion of carboplatin/Taxol on 05/18/2018. He completed radiation on 05/27/2018, total dose 1600 cGy. Overall, he tolerated his treatment well. He appeared to have significant response by follow-up chest CT. During follow-up he had initially remained stable clinically with no obvious progression of the lung cancer. However, his repeat CT scans July 2019 showed some progression of lymphadenopathy as well as increased pleural thickening associated with the residual right upper lobe mass. His restaging PET/CT on 07/24/2019 showed progression of the right apical pulmonary nodule as well as suspected bilateral metastatic pulmonary nodules and an FDG avid right femoral lymph node which appeared suspicious for recurrent lymphoma. The pulmonary nodules did not appear to be accessible for biopsy. Right inguinal lymph node biopsy on 10/12/2019 confirmed recurrent diffuse large B-cell lymphoma, germinal center subtype. Restaging PET/CT on 11/13/2019 showed significant progression of lymphoma in the right inguinal/pelvic area. There was also progression of the right apical pulmonary nodule and an additional left upper lobe and right lower lobe pulmonary nodules. The pulmonary nodules had been deemed inaccessible for biopsy. On 11/16/2019 he began cycle 1 of salvage chemotherapy with R-gem ox. He had nausea/vomiting following his day 2 treatment, but it had resolved by the next day. He otherwise tolerated the chemotherapy well. He was then able to continue treatment at 2-week intervals. He began cycle 4 on 12/28/2019. His restaging PET/CT on 01/08/2020 showed significant improvement in the retroperitoneal and pelvic lymphadenopathy. The pulmonary nodules, which I have presumed to be non-small cell lung cancer, remained stable or showed slight improvement. He then continued with cycle 5 of R-gem ox on 01/11/2020 and with cycle 6 on 01/25/2020. Overall, he tolerated the treatment very well. His restaging CT scans on 04/20/2020 showed no residual adenopathy or other metastatic disease in the abdomen/pelvis, but there was evidence of disease progression in both lungs. 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 The immunohistochemical stains were nonspecific. 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 There were no targetable mutations identified. On 07/19/2020 he began immunotherapy with pembrolizumab as a second line treatment. He tolerated the initial infusion well and he continued with cycle 2 on 08/09/2020. He comes in now with new pain in his right lower chest area and increased shortness of breath. His chest x-ray shows increased infiltrate in the right mid lung zone, consistent with pneumonia. At this point it is uncertain whether or not this may be postobstructive. Follow-up chest x-ray on 09/05/2020 did not show any improvement despite being on Levaquin 750 for 7 days. Plan: 1. We will continue to hold his Keytruda (pembrolizumab). 2. He has completed his antibiotic therapy as of today with no improvement. I did not continue the Levaquin at this point. 3. Labs from today were reviewed in detail discussed with Mr. Zurita and a copy was offered to him. He declined a copy and it was shredded. WBC 15.2, hemoglobin 10.8, platelets 388,000 ANC is 12,000. Creatinine 0.8 BUN is 16 random glucose 122 potassium 3.8 his albumin is 3.3. LFTs are normal. 4. We will start him on prednisone 20 mg 2 tablets daily for 3 days then 1-1/2 tablets daily for 3 days then 1 tablet daily until follow-up with pulmonology or with Dr. Castano. 5. Referral [place] [facility] [place] for further consideration for possible treatment interventions. It is concerning on his x-ray per Dr. Castano that he may have some obstruction. Dr. Castano recommended referral to pulmonology for consideration of further treatment possibly laser. Mr. Zurita has had radiation in the past and most likely would not be a further candidate for any radiation. 6. Refill for lorazepam 0.5 mg 1 or 2 every 6 hours as needed for anxiety, severe nausea or insomnia was called to [facility]. 7. We will restage him now with a CT of the chest abdomen pelvis with contrast ANGELITA. Hopefully this will help us determine the etiology of the right upper quadrant pain. 8. We will plan to see Mr. Zurita back at least in 3 weeks to make sure that he has had a CTs obtained and follow-up with pulmonology. 9. He did not want adjust his pain medication today as he states that he is getting relief with it and did not want increase it at this time. 10. Mr. Zurita was encouraged to contact us in the interim should questions or problems arise. Signed By: Nohelia Pringle-, [facility] Jus Castano MD <<Signature on File>>
== END 2020-09-07 05:44 | disposition home or self-care (01) ==
LOC: ONCMED 05:44
PROVIDERS: PCP Emergency Medicine Emergency Medical Services; Visit Provider Nurse Practitioner
DX: C91.10 Chronic lymphocytic leukemia of B-cell type not having achieved remission (principal); C34.81 Malignant neoplasm of overlapping sites of right bronchus and lung; J18.9 Pneumonia, unspecified organism; J44.9 Chronic obstructive pulmonary disease, unspecified; I10 Essential (primary) hypertension; K21.9 Gastro-esophageal reflux disease without esophagitis; G62.9 Polyneuropathy, unspecified; F17.210 Nicotine dependence, cigarettes, uncomplicated; F41.9 Anxiety disorder, unspecified; Z90.2 Acquired absence of lung [part of]; Z92.3 Personal history of irradiation; Z79.899 Other long term (current) drug therapy; Z79.52 Long term (current) use of systemic steroids
CPT/HCPCS: 36591; 80053; 85025; 99214

== ENCOUNTER 2020-09-21 11:19 | Outpatient (CLI) | payer OTHER, SELFPAY ==
--- NOTE | 2020-09-21 11:30 | CT_ITS ---
WS: [id number] CT scan of the chest With IV contrast, CT scan of the abdomen and pelvis with IV contrast and oral contrast. Additional two-dimensional coronal and sagittal reconstruction was performed. 09/21/2020 Clinical Data: METASTATIC LUNG CANCER Comparison: CT chest, 07/07/2020. DLP: 2436.[address] scans at [facility] use at least one of these dose optimization techniques: automat ed exposure control; mA and/or kV adjustment per patient size (includes targeted exams where dose is matched to clinical indication); or iterative reconstruction. Findings: Chest: There is a right pleural effusion with a right lower lobe mass. There is also collapse of the superio r segment of the right lower lobe and probable obstructive pneumonia extending into the anterior aspe ct of the right lower lobe and the right middle lobe. The pleural nodules at the anterior aspect of t he right middle lobe have increased in size and the largest measures 2.7 cm There is a pleural-based mass at the lateral aspect of the right upper lobe which is unchanged. There are atelectatic changes in the right upper lobe. The left upper lobe shows a 1.5 cm nodule seen best on axial image 22 of 66 which has not changed.. The heart is enlarged with no pericardial effusion. There is coronary artery calcification. The pulmonary arterial system and thoracic aorta demonstrate no abnormalities or dilatations. The tra melo bifurcates into the right and left mainstem bronchi. However the right upper lobe and right lowe r lobe bronchi are occluded. There is subcarinal and right hilar adenopathy which have increased compared to the prior study. The bones of the thorax show osteoarthritic change but no bony metastatic lesions. Abdomen/pelvis: The liver, spleen, adrenal glands and pancreas are normal. There are clips in the gallbladder fossa f rom a cholecystectomy. There is a soft tissue mass anterior to the right lobe of the liver which is p robably a metastatic lesion has increased in size to 5.8 cm. The kidneys show equal bilateral contrast excretion with bilateral cortical cysts and right renal pel wisam dilatation unchanged. There are small lymph nodes throughout the mesentery of the abdomen which m ay also represent metastatic lesions.. The abdominal aorta is normal in size with calcification in the wall.. No appendicitis or diverticulitis is seen. Oral contrast is in the stomach and small bowel and there is no bowel dilatation. No abscess, ascites, obstruction or free air is seen. The bladder is unremarkable. No inguinal hernia is seen. There are surgical clips in the right inguin al region. Prostate is enlarged. The bones of the lower thorax, lumbar spine, pelvis, and hips are normal. CT/CT chest abd pel w con* Impression: 1. Enlarging right lower lobe mass with right pleural effusion and collapse of the right lower lobe. 2. Right upper lobe pleural-based mass unchanged. 3. Left upper lobe spiculated mass unchanged. 4. Probable metastatic lesion adjacent to the anterior aspect of the right lobe of the liver which has enlarged. 5. Right hilar adenopathy. 6. Intestinal adenopathy. 7. Increase in size of right middle lobe pleural based masses.
[2020-09-21] MEDS: iohexol 300 mg/mL 50 mL Btl PO (12:35)
[2020-09-21] MEDS: iohexol 300 mg/mL 100 mL Btl IV (13:07)
== END 2020-09-21 11:20 | disposition home or self-care (01) ==
LOC: RADWPI 11:23
PROVIDERS: PCP Emergency Medicine Emergency Medical Services; Visit Provider Nurse Practitioner
DX: C34.11 Malignant neoplasm of upper lobe, right bronchus or lung (principal); C34.31 Malignant neoplasm of lower lobe, right bronchus or lung; R59.9 Enlarged lymph nodes, unspecified
CPT/HCPCS: 71260; 74177; Q9967